=== PATIENT | male | born 1935 | race African-American/Black ===

== ENCOUNTER 2018-12-23 13:56 | Inpatient (IN) | payer OTHER ==
[2018-12-23] VITALS (27 sets, daily range): BP systolic 116–145; BP diastolic 55–81
[~2018-12-23] VITALS: Ht 177.8 cm; Wt 92.1 kg
--- NOTE | ~2018-12-23 | HC ---
[facility] [place] [address] CONSULTATION Name: SIMRANROMMEL Bocanegra Room #: 451-P ADM IN M.R.#: [id number] Admission: 12/23/18 ������������������ Attend Phys: Melonie Chen Discharge: ������������������ Date of : 34 Report #: [id number] THIS REPORT FOR: //name// CC: Joshua Akins DATE OF SERVICE: 12/25/2018 REASON FOR CONSULTATION: CKD. REASON FOR PRESENTATION: Coagulopathy. HISTORY OF PRESENT ILLNESS: An 83-year-old who presented with abdominal pain. He reported to his primary care physician. He is known to have PE and he is maintained on anticoagulation. His INR was reported to be around 15. With his abdominal pain, his primary care obtained a CT that showed stranding around the kidneys. He had what was described as retroperitoneal bleed. I am consulted to manage his chronic kidney disease. Looking back, the patient does have significant kidney disease with a baseline creatinine of around 1.8. He has multiple bilateral renal cysts. Creatinine when the patient presented was 2.4 and it is down to 2.1. The patient carries a diagnosis of hypertension. He is known to have vitiligo and has obstructive sleep apnea, not using CPAP. PAST MEDICAL HISTORY: 1. Hemorrhoidectomy. 2. Diabetes mellitus. 3. PE. 4. Hypothyroid. 5. Hyperlipidemia. 6. Sleep apnea. 7. Vitiligo. MEDICATIONS: 1. Metolazone. 2. Glimepiride. 3. Levothyroxine. 4. Potassium. 5. Gabapentin. 6. Prednisone for unclear reasons. 7. Lisinopril. 8. Metformin. ALLERGIES: IODINATED CONTRAST. SOCIAL HISTORY: Used to be in the [employer]. No drug or alcohol abuse. [facility] [address] [place] [address] CONSULTATION Name: SIMRANROMMEL Room #: 451-P [facility] IN M.R.#: [id number] Admission: 12/23/18 ������������������ Attend Phys: Melonie Chen Discharge: ������������������ Date of : 34 Report #: [id number] FAMILY HISTORY: Significant for diabetes mellitus and hypertension. REVIEW OF SYSTEMS: GENERAL: No fever or chills. CARDIOVASCULAR: No chest pain or palpitation. PULMONARY: No cough or hemoptysis. GASTROINTESTINAL: No nausea or vomiting. GENITOURINARY: As per the history of present illness. SKIN: Vitiligo. PHYSICAL EXAMINATION: GENERAL: Evidence of vitiligo. VITAL SIGNS: Blood pressure 120/63. HEAD AND NECK: No jugular venous distention. CHEST: No crackles. CARDIOVASCULAR: No rubs detected. ABDOMEN: Soft, nontender. LOWER EXTREMITIES: No edema. LABORATORY DATA: Reviewed. Hemoglobin is 8.6, down from 9.8. INR is down to 1.4 from 14.9. UA with +1 protein. Urine protein to creatinine ratio is 0.4. BUN is 24, creatinine is 2.1. ASSESSMENT, IMPRESSION AND PLAN: 1. Acute kidney injury due to prerenal causes. 2. Chronic kidney disease with a baseline creatinine of around 1.8. 3. Retroperitoneal bleed. 4. Bilateral renal cysts. 5. Stable from the renal side. Ascites is being investigated. I will send the appropriate laboratory investigations for his acute kidney injury and chronic kidney disease. We will also evaluate his serum protein electrophoresis given the MGUS history. 6. I agree with holding the Glucophage, lisinopril, metolazone for now. 7. Discontinue potassium supplement. 8. Known nephrotoxins. 9. Septic workup is in progress. 10. Retroperitoneal bleed, his coagulopathy has been corrected and rectified. 11. From the renal perspective, no intervention is needed for his perinephric stranding from the retroperitoneal bleed. ��������������������������������������������� ���������������������������������������� By: ��������������������������������������������� 1 30 Chyna Morocho MD /nt
[~2018-12-23 13:56] MED LIST: ACIPHEX 20 MG T20 MG PO; ALLOPURINOL 30300 M2 PO; AMARYL2 MG PO; AVELOX 400 MG400 MG PO; CARDURA4 MG PO; CIPROFLOXACIN500 M1 PO; COUMADIN 2.5MG2.5 M1 PO; CRESTOR10 MG PO; FISHOIL PO; GLUCOPHAGE500 MG PO; HYDROCODON-ACE1 EAC7 PO; IRON PO; JANTOVEN5 MG PO; METOLAZONE 2.52.5 MG PO; MULTIVITAMINS PO; NORCO 5-325 TA1 EACH PO; PREDNISONE 5 MG5 MG PO; PRILOSEC 20 MG20 MG PO; PROMETHAZINE-C120 ML PO; SYNTHROID125 MCG PO
[2018-12-23 14:39] LABS: URINE BILIRUBIN NEGATIVE (Negative); URINE BLOOD 2+ (Negative); URINE CLARITY CLEAR; URINE COLOR YELLOW; URINE GLUCOSE-RANDOM* NEGATIVE (Negative); URINE KETONES NEGATIVE (Negative); URINE LEUKOCYTES-REFLEX NEGATIVE (Negative); URINE NITRITE-REFLEX NEGATIVE (Negative); URINE PROTEIN (DIPSTICK) 1+ (Negative); URINE SPECIFIC GRAVITY >= 1.030 (1.005-1.035); URINE UROBILINOGEN 0.2 E.U./dl (0.2-1.0)
[2018-12-23 14:43] LABS: HEMATOCRIT 29.1 % (42.0-52.0); HEMOGLOBIN 9.7 gm/dL (14.0-18.0); MCH 27.9 pg (26.0-34.0); MCHC 33.4 g/dL (28.0-37.0); MCV 83.6 fL (80.0-100.0); PLATELET COUNT 301 thou/uL (150-400); RBC 3.48 mil/uL (4.50-6.00); RDW 16.2 % (10.5-14.5); WBC 5.3 thou/uL (4.0-11.0)
[2018-12-23 14:48] LABS: CASTS None Seen /LPF (None Seen); CRYSTALS None Seen /LPF (None Seen); SQUAMOUS 0-3 Few /LPF (0-3)
[2018-12-23 14:49] LABS: BACTERIA-REFLEX 1-9 Few /HPF (None Seen); URINE RBC 0-2 Rare /HPF (0-2); URINE WBC-REFLEX None Seen /HPF (0-5)
[2018-12-23 14:51] LABS: ANION GAP 8 mmol/L (7-16); BUN 31 mg/dL (7-18); CALCIUM 8.8 mg/dL (8.5-10.1); CHLORIDE 107 mmol/L (98-107); CO2 22 mmol/L (21-32); CREATININE 2.5 mg/dL (0.7-1.3); GLUCOSE 70 mg/dL (74-106); POTASSIUM 4.3 mmol/L (3.5-5.1); SODIUM 137 mmol/L (136-145)
[2018-12-23 15:00] LABS: ALBUMIN 2.3 g/dL (3.4-5.0); SGOT 337 U/L (15-37); SGPT 64 U/L (30-65); TOTAL BILIRUBIN 0.2 mg/dL (<0.1-1.0); TOTAL PROTEIN 8.7 g/dL (6.4-8.2); TROPONIN-I <0.06 ng/mL (<0.06)
[2018-12-23 15:02] LABS: ABSOLUTE NEUTROPHILS 2.8 thou/uL (1.4-8.2); PLATELET ESTIMATE NORMAL
[2018-12-23 15:03] LABS: ANISOCYTOSIS 1+; APTT 64.7 Seconds (24.5-32.8); PROTIME 151.9 Seconds (9.3-11.4)
[2018-12-23 15:04] LABS: INR 14.9
[2018-12-23] MEDS ORDERED: SYNTHROID150 MCG PO (15:24)
[2018-12-23] MEDS ORDERED: GLUCOPHAGE XR500 MG PO (15:25)
[2018-12-23] MEDS ORDERED: KLOR-CON 1010 MEQ PO (15:30)
[2018-12-23] MEDS ORDERED: GABAPENTIN 100100 MG PO (15:30)
[2018-12-23] MEDS ORDERED: PREDNISONE 5 MG5 M1 PO (15:31)
[2018-12-23] MEDS ORDERED: LISINOPRIL10 MG PO (15:32)
[2018-12-23] MEDS ORDERED: LINZESS145 MCG PO (15:33)
--- NOTE | 2018-12-23 15:58 | NUR ---
DR COOPER AT BEDSIDE
--- NOTE | 2018-12-23 19:28 | NUR ---
ADMITTED TO ICU AT 1805, ALERT AND ORIENTED AND VITALS STABLE. ADMISSION HISTORY AND ASSESSMENT COMPLETED. FFP TRANSFUSION INITIATED. BLOOD GLUCOSE NOTED TO BE LOW, JUICE AND CRACKERS PROVIDED AND MD NOTIFIED. DIET ORDERS AND HYPOGLYCEMIA PROTOCOL STARTED. BLOOD SUGAR LOW AFTER RE-CHECK, D50 ADMINISTERED AND SANDWICH PROVIDED. DIEABETIC MEDS HELD. WILL CONTINUE TO MONITOR. REPORTED OFF TO AUTO GLASS TECHNICIAN BENJI Castle
[2018-12-24] VITALS (85 sets, daily range): BP systolic 101–146; BP diastolic 38–93
[2018-12-24 05:26] LABS: HEMATOCRIT 26.8 % (42.0-52.0); HEMOGLOBIN 8.6 gm/dL (14.0-18.0); MCHC 32.2 g/dL (28.0-37.0); MCV 83.9 fL (80.0-100.0); RBC 3.2 mil/uL (4.50-6.00); RDW 16.5 % (10.5-14.5); WBC 4.2 thou/uL (4.0-11.0)
[2018-12-24 05:37] LABS: PROTIME 15.1 Seconds (9.3-11.4)
[2018-12-24 05:38] LABS: INR 1.4
[2018-12-24 05:45] LABS: CALCIUM 8.5 mg/dL (8.5-10.1); CREATININE 2.1 mg/dL (0.7-1.3); POTASSIUM 4.2 mmol/L (3.5-5.1)
--- NOTE | 2018-12-24 07:56 | NUR ---
PT AOX4. ON RA. C/O HEADACHE, TYLENOL GIVEN TO PATIENT. C/O BLOATING AND TIGTNESS IN ABD. PT REFUSED TO GET ANY STRONGER FOR PAIN RELIEF. 2 UNIT OF FFP GIVEN TO PATIENT. VSS. AFEBRILE. BLOOD SUGARS LOW, PLACED ON DEXTROS. VOIDS PER URINAL. NO OVERT BLEEDING NOTED. FAMILY WAS IN DURING THE NIGHT WITH PATIENT. CALLS APPROPIATELY. FREE FROM FALLS. NO COMPLAINS PRESENTLY. WILL CONTINUE TO MONITOR
--- NOTE | 2018-12-24 11:28 | EKG ---
[address] [address] ELECTROCARDIOGRAM REPORT Name: ROMMEL KHALIL Room #: 238-P ADM IN M.R.#: [id number] ������������������ Admission: 12/23/18 ������������������ Attend Phys: Melonie Chen Discharge: ������������������ Date of : 34 Report #: [id number] ����������������������������������������������������������������� [id number] THIS REPORT FOR: //name// 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 : 1935 Requested By: Fadia Bhandari Order Number: [id number] MD: Raymond Rodriguez Measurements Intervals [place] Rate: 104 P: 56 [place]: 140 QRS: -46 QRSD: 98 T: 65 QT: 338 QTc: 445 Interpretive Statements Sinus tachycardia Left axis deviation Poor R-wave progression Compared to ECG 03/13/2011 11:00:17 no significant changes Electronically Signed On 12-24-2018 11:28:10 TRANSMISSION SYSTEMS OPERATOR by Raymond Rodriguez [email or web address] ��������������������������������������������� <ELECTRONICALLY SIGNED> ���������������������������������������� By: Raymond Rodriguez MD ��������������������������������������������� 12/24/18 1128 1409 08 Raymond Rodriguez MD /EPI
[2018-12-24 12:11] LABS: HEMATOCRIT 30.4 % (42.0-52.0); HEMOGLOBIN 9.8 gm/dL (14.0-18.0)
--- NOTE | 2018-12-24 16:36 | NUR ---
CM ASSESSMENT: CASE OPENED FOR DC PLANNING. CLINICAL INFO REVIEWED. ADMITTED THRU ER WITH ELEVATED INR AND RETROPERITONEAL BLEED. PT AND SPUOUSE LIVE TOGETHER IN HOUSE. PT INDEPENDENT WITH ADLS, WORKS PT, DRIVES. SHARES IADLS WITH SPOUSE. NO PREVIOUS HH. SUPPORTIVE FAMILY. PCP IS MIKE DAVILA. NO WEEKEND DC PLANNED.
[2018-12-24 16:52] LABS: COLOR YELLOW; SOURCE LEFT PARA; SOURCE LT PARA; TOTAL VOLUME 60 mL
[2018-12-24 16:53] LABS: CLARITY CLOUDY
--- NOTE | 2018-12-24 17:28 | NUR ---
PRECEPTING KAYLA OJEDA RN. AGREE WITH ALL NOTES AND ASSESSMENTS.
[2018-12-24 17:29] LABS: BF NUCLEATED CELLS 7480; BF RBC 3266
--- NOTE | 2018-12-24 17:35 | NUR ---
ASSUMED CARE OF PT AT 0700, MAIN COMPLAINT OF TIGHNESS AND FULLNESS IN ABDOMEN, A&OX4, CALM AND COOPERATIVE THROUGHOUT DAY. NO PAIN STATED THROUGHOUT DAY. TACHYCARDIC FOR MOST OF DAY, PT REMAINS ON ROOM AIR. HYPOACTIVE BOWEL SOUNDS, CT SCAN OF ABDOMEN AND PARACENTESIS PERFORMED, 1.1 L OF FLUID DRAINED, TOLERATED PROCEDURE, PRESSURE DRESSING IN PLACE. BLOOD SUGAR REMAINED WITHIN NORML LIMITS THROUGHOUT DAY. PT. IS IN BED RESTING WITH CALL LIGHT WITHIN REACH, WILL CONTINUE TO MONITOR.
[2018-12-24 20:01] LABS: % SATURATION 26 % (20-39); IRON 44 ug/dL (65-175); TIBC 172 ug/dL (250-450)
[2018-12-24 20:04] LABS: ALBUMIN 2.3 g/dL (3.4-5.0); DIRECT BILIRUBIN 0.1 mg/dL (<0.1-0.3); TOTAL BILIRUBIN 0.3 mg/dL (<0.1-1.0); TOTAL PROTEIN 8.5 g/dL (6.4-8.2)
[2018-12-24 21:26] LABS: PROT/CREAT RATIO 0.4; URINE CREATININE-RANDOM* 105.5 mg/dL; URINE PROTEIN-RANDOM* 47.2 mg/dL (<11.9)
[2018-12-25] VITALS (17 sets, daily range): BP systolic 109–134; BP diastolic 53–74
[2018-12-25 03:05] LABS: HAV IgM AB (ANTI-HAV IgM) Negative (Negative); HEPATITIS B SURFACE AG Negative (Negative); HEPATITIS C VIRUS AB 0.8 (0.0-0.9); IgG 3459 mg/dL (700-1600)
--- NOTE | 2018-12-25 05:43 | NUR ---
Pt remains stable in this shift. Denies of any SOB or chest discomfort. Report less tightness in his ABD this am. Dressing on Lt side of ABD remains D/C/I. Making good UO. VSS. Awaiting for Lab result this am.
[2018-12-25 06:23] LABS: HEMATOCRIT 26.8 % (42.0-52.0); HEMOGLOBIN 8.6 gm/dL (14.0-18.0); MCHC 32.3 g/dL (28.0-37.0); MCV 83.7 fL (80.0-100.0); RBC 3.2 mil/uL (4.50-6.00); RDW 16.3 % (10.5-14.5); WBC 4.6 thou/uL (4.0-11.0)
[2018-12-25 06:29] LABS: CALCIUM 8.1 mg/dL (8.5-10.1); CREATININE 2.1 mg/dL (0.7-1.3); MAGNESIUM 1.8 mg/dL (1.8-2.4); POTASSIUM 4.3 mmol/L (3.5-5.1)
[2018-12-25 11:12] LABS: DIRECT BILIRUBIN < 0.1 mg/dL (<0.1-0.3); SGOT 218 U/L (15-37); SGPT 28 U/L (30-65); TOTAL BILIRUBIN 0.3 mg/dL (<0.1-1.0); TOTAL PROTEIN 7.7 g/dL (6.4-8.2)
--- NOTE | 2018-12-25 17:36 | NUR ---
ASSUMED CARE OF PT AT 0700. PT DENIES N/V AND PAIN IN ABDOMEN. ABDOMEN STILL ROUND, FIRM, AND DISTENDED. PT. WALKED WITH STAND BY ASSIST TO DOOR AND BACK AND TOLERATED WELL. LABS FROM PARACENTESIS STILL PENDING. OK TO TRANSFER OUT OF ICU. REPORT GIVEN TO MADI PATHAK. PT. RING AND WATCH GIVEN TO AND SENT HOME. PT. WILL TRANSFER TO ROOM 451.
--- NOTE | 2018-12-25 18:42 | NUR ---
PT. TRANSFERRED TO [facility] AT 1830. ALL PATIENT BELONGINGS TRANSFERRED WITH PT.
[2018-12-26 03:35] VITALS: BP 122/60
--- NOTE | 2018-12-26 03:57 | NUR ---
Pt. rested quietly during the night when checked on during frequent rounds. His iv infiltrated in left upper arm. Area is swollen and reddish in color. Pt. does not want an iv restarted. Will attempt again later this morning as pt. has no iv meds at this time. No c/o shortness of air.
[2018-12-26 04:53] LABS: HEMATOCRIT 27.7 % (42.0-52.0); HEMOGLOBIN 9.3 gm/dL (14.0-18.0); MCHC 33.4 g/dL (28.0-37.0); MCV 83.8 fL (80.0-100.0); RBC 3.31 mil/uL (4.50-6.00); RDW 16.2 % (10.5-14.5); WBC 5.9 thou/uL (4.0-11.0)
[2018-12-26 05:12] LABS: CALCIUM 8.4 mg/dL (8.5-10.1); CREATININE 2.1 mg/dL (0.7-1.3); PHOSPHORUS 2.9 mg/dL (2.5-4.9); POTASSIUM 4.3 mmol/L (3.5-5.1)
[2018-12-26 07:25] VITALS: BP 136/66
[2018-12-26 09:08] LABS: BODY FLUID ALBUMIN 2.3 g/dL (()); BODY FLUID AMYLASE 346 U/L (()); BODY FLUID GLUCOSE 25 mg/dL (()); BODY FLUID LDH 15944 IU/L (()); BODY FLUID PROTEIN 5.9 g/dL (())
--- NOTE | 2018-12-26 10:09 | NUR ---
OK FOR PT TO GO WITHOUT IV ACCESS UNTIL LEFT ARM IMPROVES FROM INFILTRATION PER DR. DE SANTIAGO.
[2018-12-26 11:05] LABS: IgA 98 mg/dL (61-437); IgG 3420 mg/dL (700-1600); IgM 74 mg/dL (15-143)
[2018-12-26 12:07] LABS: CERULOPLASMIN 24.7 mg/dL (16.0-31.0)
[2018-12-26 14:30] VITALS: BP 144/79
--- NOTE | 2018-12-26 17:31 | NUR ---
PT STABLE THROUGHOUT SHIFT. OVERNIGHT PT'S IV INFILTRATED, LEFT ARM RED AND SWOLLEN. PT REFUSED TO ALLOW IV IN RIGHT ARM. WRAPPED AND ELEVATED LEFT ARM AND PT HAD NO COMPLAINTS OF PAIN. PT RESTING COMFORTABLY.
[2018-12-26 19:13] VITALS: BP 127/66
--- NOTE | 2018-12-27 02:53 | NUR ---
Assumed care at 1845. Pt resting in bed on frequent rounds. Denies pain. Still with no IV access. No identified needs at the moment. Call light within reach. Will continue to monitor.
[2018-12-27 03:02] VITALS: BP 120/63
[2018-12-27 04:09] LABS: CREATININE 2.4 mg/dL (0.7-1.3); PHOSPHORUS 3.7 mg/dL (2.5-4.9); POTASSIUM 4.7 mmol/L (3.5-5.1)
[2018-12-27 04:25] LABS: HEMATOCRIT 26.9 % (42.0-52.0); MCH 28.3 pg (26.0-34.0); MCHC 33.6 g/dL (28.0-37.0); MCV 84.2 fL (80.0-100.0); RBC 3.19 mil/uL (4.50-6.00); RDW 16.2 % (10.5-14.5); WBC 5.3 thou/uL (4.0-11.0)
[2018-12-27 07:12] VITALS: BP 137/59
[2018-12-27 10:07] LABS: KAPPA FREE LIGHT CHAINS 1145.1 mg/L (3.3-19.4); KAPPA/LAMBDA RATIO 14.07 (0.26-1.65); LAMBDA FREE LIGHT CHAINS 81.4 mg/L (5.7-26.3)
--- NOTE | 2018-12-27 14:27 | 2DMMODE ---
[facility] [address] [place] [address] 2 D/M-MODE ECHOCARDIOGRAM Name: KHALILROMMEL Room #: 451-P [facility] IN [facility]#: [id number] ������������� Admission: 12/23/18 ������������� Attend Phys: Joshua Cameron Discharge: ��� ������������� ��� Date of : 34 Date of Service: 12/27/18 0828 �� Report #: [id number] �������� ��������������������������������������������[id number] THIS REPORT FOR: //name// APPROVED REPORT Study performed: 12/25/2018 11:12:28 EXAM: Comprehensive 2D, Doppler, and color-flow Echocardiogram Patient Location: ICU Room #: 238 Status: routine BSA: 2.09 HR: 98 bpm Rhythm: NSR Other Information Study Quality: Adequate Indications Atrial Fibrillation Hypertension/HDD 2D Dimensions RVDd: 31.17 mm IVSd: 10.52 (7-11mm) LVOT Diam: 19.83 (18-24mm) LVDd: 41.16 mm PWd: 10.17 (7-11mm) Ascending Ao: 32.38 (22-36mm) LVDs: 21.59 (25-40mm) Left Atrium: 39.11 (27-40mm) Aortic Root: 28.30 mm LV Single Plane 4CH: 62.55 % Volumes Left Atrial Volume (Systole) Single Plane 4CH: 22.58 mL Single Plane 2CH: 29.73 mL Aortic Valve AoV Peak Manny.: 2.15 m/s AO Peak Gr.: 18.52 mmHg LVOT Max P.37 mmHg LVOT Max V: 1.36 m/s DEANDRA Vmax: 1.95 cm2 Mitral Valve E/A Ratio: 0.8 [facility] [address] [place] [address] 2 D/M-MODE ECHOCARDIOGRAM Name: SIMRANROMMEL Bocanegra Room #: 451-P [facility] IN [facility]#: [id number] ������������� Admission: 12/23/18 ������������� Attend Phys: Joshua Cameron Discharge: ��� ������������� ��� Date of : 34 Date of Service: 12/27/18 0828 �� Report #: [id number] �������� ��������������������������������������������[id number] MV Decel. Time: 218.24 ms MV E Max Manny.: 1.05 m/s MV A Manny.: 1.26 m/s MV PHT: 63.29 ms IVRT: 59.98 ms Pulmonary Valve PV Peak Manny.: 1.25 m/s PV Peak Gr.: 6.30 mmHg Pulmonary Vein P Vein S: 0.53 m/s P Vein A: 0.40 m/s P Vein D: 0.31 m/s P Vein A Dur.: 148.8 msec P Vein S/D Ratio: 1.71 Tricuspid Valve TR Peak Manny.: 2.81 m/s TR Peak Gr.: 31.57 mmHg Left Ventricle The left ventricle is normal size. There is normal LV segmental wall motion. There is normal left ventricular wall thickness. The left ventricular systolic function is normal. The left ventricular ejection fraction is within the normal range. LVEF is 60-65%. Mild diastolic dysfunction is present (impaired relaxation pattern). Right Ventricle The right ventricle is normal size. There is normal right ventricular wall thickness. The right ventricular systolic function is normal. Atria The left atrium size is normal. The right atrium size is normal. Aortic Valve The aortic valve is normal in structure. No aortic regurgitation is present. There is no aortic valvular stenosis. Mitral Valve The mitral valve is normal in structure. Mild mitral regurgitation. Tricuspid Valve The tricuspid valve is normal in structure. Trace to mild tricuspid regurgitation. Estimated PAP is 35mmHg. [facility] [address] [place] [address] 2 D/M-MODE ECHOCARDIOGRAM Name: SUSAN KHALILRAMAKRISHNA Bocanegra Room #: 451-P [facility] IN [facility].#: [id number] ������������� Admission: 12/23/18 ������������� Attend Phys: Joshua Cameron Discharge: ��� ������������� ��� Date of : 33 Date of Service: 12/27/18 0828 �� Report #: [id number] �������� ��������������������������������������������[id number] Pulmonic Valve Pulmonic valve is grossly normal in structure. Trace to mild pulmonic regurgitation. Great Vessels The aortic root is normal in size. The ascending aorta is normal in size. IVC is normal in size and collapses >50% with inspiration. Pericardium There is no pericardial effusion. <Conclusion> The left ventricular systolic function is normal. There is normal LV segmental wall motion. LVEF is 60-65%. Mild diastolic dysfunction The aortic valve is normal in structure. No aortic regurgitation or stenosis The mitral valve is normal in structure. Mild mitral regurgitation. Trace to mild tricuspid regurgitation. Estimated pulmonary artery pressure of 35mmHg. There is no pericardial effusion. ��������������������������������������������� <ELECTRONICALLY SIGNED> ���������������������������������������� By: Alireza Williamson MD, FACC ��������������������������������������������� 12/27/18827 7 7 Alireza Williamson MD, FACC /INF
[2018-12-27 14:56] VITALS: BP 146/50
[2018-12-27 15:07] LABS: ANA INTERPRETATION Negative (Negative)
[2018-12-27] MEDS ORDERED: CIPRO500 MG PO (15:41)
--- NOTE | 2018-12-27 16:37 | NUR ---
CARE TEAM INDICATED THAT PT IS MEDICALLY STABLE TO DISCHARGE HOME THIS DAY WITH NO NEEDS. NO OTHER CM INTERVENTION INDICATED AT THIS TIME. CASE CLOSED.
[2018-12-27 16:50] VITALS: BP 146/50
== END 2018-12-27 19:00 | disposition home or self-care (01) | DRG 963 ==
LOC: ER 13:56 → 4W 15:31 → ICU 15:31 → EROBS 15:31 → ICU 17:52 → 4W 12-25 18:45
PROVIDERS: Hospitalist; Internal Medicine; Nurse Practitioner; Nurse Practitioner Family; Student in an Organized Health Care Education/Training Program; ADMIT Family Medicine
PROC: 30233K1 Transfusion of Nonautologous Frozen Plasma into Peripheral Vein, Percutaneous Approach (ICD-10-PCS; principal; 2018-12-23)
PROC: 0W9G3ZZ Drainage of Peritoneal Cavity, Percutaneous Approach (ICD-10-PCS; 2018-12-24)
DX: S37.012A Minor contusion of left kidney, initial encounter (principal); K65.2 Spontaneous bacterial peritonitis; S36.898A Other injury of other intra-abdominal organs, initial encounter; D68.9 Coagulation defect, unspecified; N17.9 Acute kidney failure, unspecified; R18.8 Other ascites; S37.011A Minor contusion of right kidney, initial encounter; N18.9 Chronic kidney disease, unspecified; E11.22 Type 2 diabetes mellitus with diabetic chronic kidney disease; E03.9 Hypothyroidism, unspecified; I48.0 Paroxysmal atrial fibrillation; K21.9 Gastro-esophageal reflux disease without esophagitis; E78.00 Pure hypercholesterolemia, unspecified; N28.1 Cyst of kidney, acquired; D47.2 Monoclonal gammopathy; K80.20 Calculus of gallbladder without cholecystitis without obstruction; D64.9 Anemia, unspecified; I12.9 Hypertensive chronic kidney disease with stage 1 through stage 4 chronic kidney disease, or unspecified chronic kidney disease; M19.90 Unspecified osteoarthritis, unspecified site; N40.0 Benign prostatic hyperplasia without lower urinary tract symptoms; M10.9 Gout, unspecified; E66.9 Obesity, unspecified; V89.2XXA Person injured in unspecified motor-vehicle accident, traffic, initial encounter; Y93.89 Activity, other specified; Y92.89 Other specified places as the place of occurrence of the external cause; Y99.8 Other external cause status; Z68.29 Body mass index [BMI] 29.0-29.9, adult; Z86.711 Personal history of pulmonary embolism; Z87.828 Personal history of other (healed) physical injury and trauma; Z87.81 Personal history of (healed) traumatic fracture; Z79.01 Long term (current) use of anticoagulants; Z79.84 Long term (current) use of oral hypoglycemic drugs; Z79.899 Other long term (current) drug therapy; Z91.041 Radiographic dye allergy status; Z91.012 Allergy to eggs; Z83.3 Family history of diabetes mellitus; Z82.49 Family history of ischemic heart disease and other diseases of the circulatory system
CPT/HCPCS: 10045; 10078

== ENCOUNTER 2019-02-06 06:51 | Inpatient (IN) | payer OTHER ==
[~2019-02-06] VITALS: Ht 177.8 cm; Wt 98.7 kg
--- NOTE | ~2019-02-06 | HC ---
[facility] [address] [place] [address] CONSULTATION Name: ROMMEL KHALIL Room #: 204-P [facility] IN ..#: [id number] Admission: 02/06/19 ������������������ Attend Phys: Ray Calderón MD Discharge: ������������������ Date of : 34 Report #: [id number] THIS REPORT FOR: //name// CC: Ray Akins DATE OF SERVICE: 02/11/2019 HISTORY OF PRESENT ILLNESS: This is an 83-year-old black male was admitted with findings of renal failure, which have improved with dialysis. He has had a longstanding MGUS dating to 2010 when he had a bone marrow performed at [facility] and seen in consultation by Dr. Evelio Gong. He most recently was seen by Macrina Almanza at [facility] with a repeat bone marrow performed for suspected multiple myeloma. This evidently was nondiagnostic. A recent tap of ascitic fluid showed plasma cells. PAST MEDICAL HISTORY: Positive for diabetes. He had a PE to his left lung in 2003. He has had prior vitiligo, high cholesterol, gout, sleep apnea, medically managed hypertension and hypothyroidism. He has had prior hemorrhoidectomy. MEDICATIONS: As listed on the MFR. ALLERGIES: IODINATED CONTRAST MATERIAL. REVIEW OF SYSTEMS: Negative for any sweats, chills, fever. He has detected new palpable masses. He has had poor p.o., weight loss and difficulty in eating/swallowing. Remaining review of systems is in the history of present illness. PHYSICAL EXAMINATION: GENERAL: Shows him to be awakened and alert, but is a poor historian. HEENT: Shows mouth to be clear. NECK: Supple. CHEST: Clear. CARDIOVASCULAR: Normal S1, S2. ABDOMEN: Soft with no palpable spleen. EXTREMITIES: No clubbing, cyanosis, edema. SKIN: Shows widespread vitiligo. NEUROLOGIC: No focal localizing signs. PSYCHIATRIC: Not agitated or confused. ASSESSMENT: Plasma cell dyscrasia. PLAN: I have been able to obtain further records from Dr. Akins and discussed with his as well as Dr. Chadwick. The recent bone marrow being negative [facility] [address] [place] [address] CONSULTATION Name: KHALILROMMEL Room #: 204-P [facility] IN M.R.#: [id number] Admission: 02/06/19 ������������������ Attend Phys: Ray Calderón MD Discharge: ������������������ Date of : 34 Report #: [id number] may represent a sample error and/or discussed that masses seen on CAT scan may represent extramedullary plasmacytomas versus lymphoma. 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 If a tissue diagnosis is not obtained, we have discussed obtaining a PET scan with a directed needle biopsy. The is in agreement with these plans and we will follow accordingly. Thanks for asking us to be involved in his care. Full and further recommendations will be forthcoming. ��������������������������������������������� ���������������������������������������� By: ��������������������������������������������� 1445 0946 MD isabel Asif
--- NOTE | ~2019-02-06 | HC ---
[facility] [place] [address] CONSULTATION Name: ROMMEL KHALIL Sahra Room #: 204-P ADM IN ..#: [id number] Admission: 02/06/19 ������������������ Attend Phys: Ray Calderón MD Discharge: ������������������ Date of : 34 Report #: [id number] THIS REPORT FOR: //name// CC: Ray Akins Nephrology Consultation REASON FOR CONSULTATION: Acute kidney injury. HISTORY OF PRESENT ILLNESS: This is a very well-known patient to me. He is an 83-year-old who I evaluated back in November of this year for a retroperitoneal bleed. He is known to have chronic kidney disease with a baseline creatinine of around 2.0. He presented at that time with an INR of about 15. He had some abdominal pain was investigated. CT was consistent with retroperitoneal bleed. He carries diagnoses of hypertension and vitiligo. He is also known to have diabetes mellitus with sleep apnea. I have initiated the workup for the patient at that time. 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 He has carried a diagnosis of MGUS for some years. He is followed up with Dr. Akins. He is known to have a mediastinal mass for some years, since 2003 and this has been investigated. The patient's creatinine stabilized and he was discharged home. I then communicated with his primary care physician and he had a bone marrow biopsy that did not show any evidence of lymphoproliferative disorders or paraproteinemia or plasma cell dyscrasia. However, unfortunately no amyloid staining was done. The patient has ascitic fluid at that time and pathological findings were consistent with plasma cells present in his ascitic fluid. He showed up in my clinic a few weeks ago and we offered him an admission, as his condition continued to deteriorate; however, he refused. I have recommended for him to have an MRI of his neck, chest, abdomen and pelvis given a recent CT that showed some lymphadenopathy with the above-mentioned mediastinal mass. The patient's condition continued to deteriorate. He quit making urine in the last few days. He has presented for further evaluation and management. I am being consulted to manage his acute kidney injury. He does have significant proteinuria. He reported left flank pain. No reported hematuria. PAST MEDICAL HISTORY: Extensive and includes the followin. Hypertension. 2. PE. 3. Vitiligo. 4. Hyperthyroidism. 5. Chronic kidney disease. 6. Anemia. 7. Gout. 8. Monoclonal gammopathy. 9. Plasma cell in the ascitic fluid. 10. [place] [address] CONSULTATION Name: ROMMEL KHALIL Room #: 204-P [facility] IN [facility]#: [id number] Admission: 02/06/19 ������������������ Attend Phys: Ray Calderón MD Discharge: ������������������ Date of : 34 Report #: [id number] 11. Retroperitoneal bleed. MEDICATIONS: 1. Crestor. 2. Levothyroxine. 3. Gabapentin. 4. Prednisone. 5. Amoxicillin. ALLERGIES: IODINE and EGG. SOCIAL HISTORY: No drug or alcohol abuse. Lives with his . REVIEW OF SYSTEMS: GENERAL: Significant for weakness, decreased oral intake with weight loss. CARDIOVASCULAR: No chest pain or palpitation. PULMONARY: No cough or hemoptysis. GASTROINTESTINAL: As per the history of present illness with abdominal distention, left flank pain, nausea, vomiting, decreased oral intake. GENITOURINARY: Decreased urine output. MUSCULOSKELETAL: Left-sided back pain. SKIN: Vitiligo. PHYSICAL EXAMINATION: GENERAL: He is alert, oriented, and tachycardic. VITAL SIGNS: Blood pressure is 148/78, pulse rate is 117, and temperature is 36.6. HEAD AND NECK: Neck mass is present bilaterally. CARDIOVASCULAR: No rub detected. Tachycardic. ABDOMEN: Distended with left flank tenderness. Enlarged liver. LOWER EXTREMITIES: No edema. SKIN: Diffuse vitiligo rash. LABORATORY VALUES: Reviewed. Sodium is 136, potassium is 5.8, BUN is 64, creatinine is 8.6. AST is 89. Albumin is 2.2. ASSESSMENT, IMPRESSION: 1. Acute kidney injury. 2. Chronic kidney disease. 3. Monoclonal gammopathy of undetermined significance. 4. Plasma cell present in the ascitic fluid. 5. Neck swelling. 6. Mediastinal mass. 7. Diffuse chest and abdomen lymphadenopathy. 8. Hyperkalemia. [address] [address] CONSULTATION Name: ROMMEL KHALIL Sahra Room #: 204-P [facility] IN ..#: [id number] Admission: 02/06/19 ������������������ Attend Phys: Ray Calderón MD Discharge: ������������������ Date of : 34 Report #: [id number] PLAN: 1. 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 He now has significant worsening of his renal function. I am extremely worried about his mediastinal mass and lymphadenopathy that was present on an outpatient CT. This was discussed with his primary care physician and the patient was supposed to have an MRI, neck, chest, abdomen and pelvis; however, this was not done. At this point, there is a very significant deterioration of the patient's kidney function. Differential diagnosis includes prerenal, progression of his disease, which is very likely to be amyloidosis. We will admit the patient to the hospital, hydration will be initiated. 2. Treat his hyperkalemia. 3. Obtain an ultrasound of his abdomen. 4. We will likely proceed with a kidney biopsy in the next 24 hours. 5. We would definitely consider an MRI of his chest, abdomen and pelvis given the lymphadenopathy and the mediastinal mass that was present on a CT chest that was done as an outpatient. ��������������������������������������������� ���������������������������������������� By: ��������������������������������������������� [id number] Chyna Morocho MD /morena
[~2019-02-06 06:51] MED LIST changes: +CIPRO500 MG PO; +GABAPENTIN 100100 MG PO; +GLUCOPHAGE XR500 MG PO; +KLOR-CON 1010 MEQ PO; +LINZESS145 MCG PO; +LISINOPRIL10 MG PO; +SYNTHROID150 MCG PO
[2019-02-06 06:58] VITALS: BP 160/82
[2019-02-06 07:46] LABS: ABSOLUTE NEUTROPHILS 4.5 thou/uL (1.4-8.2); EOSINOPHILS 1.8 % (0.0-3.0); HEMATOCRIT 26.5 % (42.0-52.0); HEMOGLOBIN 8.7 gm/dL (14.0-18.0); LYMPHOCYTES 22.7 % (24.0-44.0); MCH 27.5 pg (26.0-34.0); MCHC 32.7 g/dL (28.0-37.0); MCV 84.2 fL (80.0-100.0); MONOCYTES 11.4 % (1.0-8.0); PLATELET COUNT 296 thou/uL (150-400); POLYS 62.1 % (36.0-66.0); RBC 3.15 mil/uL (4.50-6.00); RDW 17.5 % (10.5-14.5); WBC 7.3 thou/uL (4.0-11.0)
[2019-02-06] MEDS ORDERED: AMOXICILLIN 50500 MG PO (07:47)
[2019-02-06] MEDS ORDERED: NEXIUM40 MG PO (07:47)
[2019-02-06] MEDS ORDERED: ULORIC40 MG PO (07:48)
[2019-02-06] MEDS ORDERED: PREDNISONE 5 MG5 M1 PO (07:54)
[2019-02-06 07:57] LABS: ANION GAP 15 mmol/L (7-16); BUN 64 mg/dL (7-18); CALCIUM 9.1 mg/dL (8.5-10.1); CHLORIDE 105 mmol/L (98-107); CO2 16 mmol/L (21-32); CREATININE 8.6 mg/dL (0.7-1.3); GLUCOSE 93 mg/dL (74-106); POTASSIUM 5.8 mmol/L (3.5-5.1); SODIUM 136 mmol/L (136-145)
[2019-02-06 08:07] LABS: ALBUMIN 2.2 g/dL (3.4-5.0); DIRECT BILIRUBIN 0.1 mg/dL (<0.1-0.3); SGOT 89 U/L (15-37); SGPT 24 U/L (30-65); TOTAL BILIRUBIN 0.3 mg/dL (<0.1-1.0); TOTAL PROTEIN 9.8 g/dL (6.4-8.2); TROPONIN-I <0.06 ng/mL (<0.06)
[2019-02-06 08:57] LABS: URINE BILIRUBIN NEGATIVE (Negative); URINE BLOOD 3+ (Negative); URINE CLARITY CLOUDY; URINE COLOR YELLOW; URINE GLUCOSE-RANDOM* NEGATIVE (Negative); URINE KETONES NEGATIVE (Negative); URINE LEUKOCYTES-REFLEX 2+ (Negative); URINE NITRITE-REFLEX NEGATIVE (Negative); URINE PROTEIN (DIPSTICK) 3+ (Negative); URINE UROBILINOGEN 0.2 E.U./dl (0.2-1.0)
[2019-02-06 09:08] LABS: AMORPHOUS URATES Few /LPF (None Seen); BACTERIA-REFLEX 1-9 Few /HPF (None Seen); CASTS None Seen /LPF (None Seen); MUCUS 0-3 Light strn/LPF (None Seen); URINE RBC 3-10 Few /HPF (0-2); URINE WBC-REFLEX 0-5 Rare /HPF (0-5)
[2019-02-06 09:09] LABS: URIC ACID CRYSTALS >10 Many /LPF (None Seen)
[2019-02-06 09:10] LABS: SQUAMOUS 0-3 Few /LPF (0-3)
[2019-02-06 09:29] VITALS: BP 148/78
--- NOTE | 2019-02-06 09:40 | NUR ---
[facility]NA[facility] FAXED AND ATEMPTED TO CALL REPORT TO CCU. CCU STATES THEY WILL CALL BACK IN 10 MIN
[2019-02-06 10:06] VITALS: BP 113/65
[2019-02-06 11:00] VITALS: BP 115/68
[2019-02-06 11:02] LABS: URIC ACID* 15.4 mg/dL (2.6-7.2)
[2019-02-06 15:55] VITALS: BP 126/78
--- NOTE | 2019-02-06 16:50 | NUR ---
PT CARE ASSUMED APPROX 1100. ADMITTED FROM ED FOR DENZEL. PT DROWSY BUT EASILY AROUSABLE. ORIENTED X4. DENIED PAIN UPON ARRIVAL BUT SOON AFTER C/O LEFT FLANK PAIN. PAIN MANAGED WITH MORPHINE. DENIES SOA. AT BEDSIDE. IVF STARTED. GARCES PATENT BUT NO OUTPUT. WILL NOTIFY RENAL DR TIMELY. VSS. PT AND BOTH DENY QUESTIONS OR CONCERNS REGARDING POC. LUNGS SOUNDS ARE CLEAR DESPITE NO OUTPUT. NO DISTRESS NOTED.
[2019-02-06 19:06] VITALS: BP 138/73
--- NOTE | 2019-02-06 23:52 | EKG ---
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: merissa : 1935 Requested By: Stephan Baugh Order Number: [id number] MD: Raymond Rodriguez Measurements Intervals [place] Rate: 104 P: 59 [place]: 131 QRS: -47 QRSD: 98 T: 103 QT: 340 QTc: 448 Interpretive Statements Sinus tachycardia Left anterior fascicular block poor r wave progression Nonspecific ST/T abnormalities Compared to ECG 12/23/2018 14:09:37 no significant changes Electronically Signed On 02-06-2019 23:52:31 CDT by Raymond Rodriguez [email or web address] ��������������������������������������������� <ELECTRONICALLY SIGNED> ���������������������������������������� By: Raymond Rodriguez MD ��������������������������������������������� 02/06/19 2352 0748 Raymond Rodriguez MD /EPI
[2019-02-07] VITALS: BP 130/74
[2019-02-07 03:12] LABS: HEMOGLOBIN 8.5 gm/dL (14.0-18.0); MCH 27.5 pg (26.0-34.0); MCHC 32.7 g/dL (28.0-37.0); MCV 84.3 fL (80.0-100.0); RBC 3.09 mil/uL (4.50-6.00); RDW 17.7 % (10.5-14.5); WBC 6.4 thou/uL (4.0-11.0)
[2019-02-07 03:29] LABS: CALCIUM 8.5 mg/dL (8.5-10.1); CREATININE 9.2 mg/dL (0.7-1.3); PHOSPHORUS 4.6 mg/dL (2.5-4.9)
[2019-02-07 03:33] LABS: POTASSIUM 6.6 mmol/L (3.5-5.1)
[2019-02-07 04:35] VITALS: BP 140/83
[2019-02-07 07:15] VITALS: BP 121/59
--- NOTE | 2019-02-07 07:56 | NUR ---
ASSUMED PT CARE AT 1900 WITH NO SIGN OF DISTRESS NOTED IN PT. PT IS STABLE WITH FAMILY AT BEDSIDE. SCHEDULED MEDS ADMINISTERED TO PT. PT TOLERATED MED. CRITICAL LAB VALUES REPORTED TO PHYSICIAN. VITAL SIGNS STABLE. ASSESSMENT DOCUMENTED. DENIES ANY FURTHER NEEDS AT THIS TIME.
[2019-02-07 11:20] VITALS: BP 139/70
[2019-02-07 15:15] VITALS: BP 121/77
--- NOTE | 2019-02-07 18:41 | NUR ---
PT ORIENTED BUT DROWSY. ABLE TO ANSWER QUESTIONS APPRORIATELY BUT DELAYED/SLOW RESPONSES. RIGHT JUGULAR TEMP DIALYSIS CATH PLACED TODAY IN IR. HEMODYALSIS AFTER PLACEMENT. NO FLUIDS TAKEN OFF. PLAN FOR DIALYSIS AGAIN TOMORROW (02/08) AM. IV FLUIDS INFUSING AT 100 ML/HR. ORDERS PER DR. PALOMINO TO D/C MILI. REMAINS ANURIC AT THIS TIME. FAMILY AT BEDSIDE THROUGH OUT THE DAY.
[2019-02-07 19:28] VITALS: BP 146/77
[2019-02-08] VITALS (7 sets, daily range): BP systolic 117–192; BP diastolic 81–103
[2019-02-08 01:05] LABS: HEP B SURFACE Ab(ANTI-HBS Reactive (()); HEPATITIS B SURFACE AG Negative (Negative)
[2019-02-08 03:41] LABS: ALBUMIN 1.9 g/dL (3.4-5.0); CALCIUM 7.7 mg/dL (8.5-10.1); PHOSPHORUS 3.2 mg/dL (2.5-4.9)
[2019-02-08 04:11] LABS: HEMATOCRIT 24.3 % (42.0-52.0); HEMOGLOBIN 8.1 gm/dL (14.0-18.0); MCH 27.7 pg (26.0-34.0); MCHC 33.2 g/dL (28.0-37.0); MCV 83.4 fL (80.0-100.0); RBC 2.92 mil/uL (4.50-6.00); RDW 17.2 % (10.5-14.5); WBC 6.9 thou/uL (4.0-11.0)
--- NOTE | 2019-02-08 05:37 | NUR ---
ASSUMED PT CARE AT 1900 WITH BEDSIDE REPORT COMPLETED. NO FAMILY AT BEDSIDE. PT IS ALERT. NO SIGN OF DISTRESS NOTED. PT IS STABLE. VITAL SIGN STABLE. PT IS TACHYCARDIC ON THE MONITOR. ASSESSMENT DONE AND CHARTED. SCHEDULED MEDS ADMINISTERED TO PT. NO SIGN OF DISTRESS NOTED. DENIES ANY FURTHER NEEDS AT THIS TIME.
[2019-02-08 11:49] LABS: INR 1.3; PROTIME 13.3 Seconds (9.3-11.4)
--- NOTE | 2019-02-08 13:07 | NUR ---
Patient admits with CRF acute hyperkalemia. He has dialysis this admission unclear if need for community dialysis. Met with patient and at bedside. 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 Patient has 7 steps to bedroom. 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 He has become weak recently reports. Discussed post acute care. Gave list of [facility] contracted facilities to review. [facility] following
--- NOTE | 2019-02-08 19:26 | NUR ---
PATIENT RESTING IN BED, STATES NO NEEDS, NPO AFTER MIDNIGHT FOR RENAL BIOPSY IN THE MORNING.
[2019-02-09] VITALS (10 sets, daily range): BP systolic 142–185; BP diastolic 66–97
[2019-02-09 03:49] LABS: APTT 30.3 Seconds (24.5-32.8); INR 1.3; PROTIME 13.6 Seconds (9.3-11.4)
[2019-02-09 03:50] LABS: ALBUMIN 1.9 g/dL (3.4-5.0); CALCIUM 7.6 mg/dL (8.5-10.1); CREATININE 3.7 mg/dL (0.7-1.3); PHOSPHORUS 2.6 mg/dL (2.5-4.9); POTASSIUM 3.3 mmol/L (3.5-5.1)
[2019-02-09 04:08] LABS: HEMATOCRIT 24.8 % (42.0-52.0); HEMOGLOBIN 8.2 gm/dL (14.0-18.0); MCH 27.7 pg (26.0-34.0); MCHC 33.2 g/dL (28.0-37.0); MCV 83.4 fL (80.0-100.0); RBC 2.97 mil/uL (4.50-6.00); RDW 17.1 % (10.5-14.5); WBC 7.3 thou/uL (4.0-11.0)
--- NOTE | 2019-02-09 05:33 | NUR ---
ASSUMED PT CARE AT 1900 WITH NO SIGN OF DISTRESS NOTED AT THIS TIME. FAMILY AT BEDSIDE AT THE START OF SHIFT. PT IS STABLE, SCHEDULED MEDS ADMINISTERED TO PT. VITAL SIGNS STABLE. PT IS NPO AFTER MN FOR A SCHEDULED RENAL BIOPSY. NO PT IS STABLE . PT CONTINUES TO HAVE DIARRHEA. PT IS STABLE ON RROM AIR. DENIES ANY NEEDS AT THIS TIME.
[2019-02-09 12:47] LABS: PROT/CREAT RATIO 0.9; URINE CREATININE-RANDOM* 77.3 mg/dL; URINE PROTEIN-RANDOM* 69.8 mg/dL (<11.9)
[2019-02-09 15:58] LABS: HEMATOCRIT 24.9 % (42.0-52.0); HEMOGLOBIN 8.2 gm/dL (14.0-18.0)
--- NOTE | 2019-02-09 17:30 | NUR ---
PATIENT IS ALERT, SLOW TO ANSWER. PATIENT HAD RENAL BIOPSY. INCREASED BLOOD PRESSURE AND PHYSICIAN NOTIFIED, HYDRALAZINE ORDERED. COMPLAINT OF LEG PAIN IN LOWER EXTREMITIES, ALSO SWELLING ON LEFT FOOT. DR. CHANCE NOTIFIED, NO ORDERS GIVEN.
[2019-02-10 04:18] LABS: CALCIUM 8.2 mg/dL (8.5-10.1); CREATININE 3.8 mg/dL (0.7-1.3); PHOSPHORUS 3.1 mg/dL (2.5-4.9); POTASSIUM 3.3 mmol/L (3.5-5.1); URIC ACID* 5.7 mg/dL (2.6-7.2)
[2019-02-10 04:29] LABS: MCH 27.8 pg (26.0-34.0); MCHC 33.4 g/dL (28.0-37.0); MCV 83.2 fL (80.0-100.0); RBC 2.89 mil/uL (4.50-6.00); RDW 17.3 % (10.5-14.5); WBC 6.7 thou/uL (4.0-11.0)
--- NOTE | 2019-02-10 04:42 | NUR ---
PATIENTS CARES WERE ASSUMED AT SHIFT CHANGE. PATIENT WAS ASSESSED AND MEDS WERE PASSED. PATIENT CONTINUES TO BECOME VERY COMFUSED AT NIGHT. THIS IS THE SECOND NIGHT HE PULLED OUT HIS IV. THIS NURSE KEEP THE IV OUT AND WILL RESSTART IN THE MORNING WHEN PATIENTS THOUGHTS ARE CLEARER. HOURLY ROUNDING WAS DONE. PATIENT APPERED TO SLEEP WELL AFTER HE PULLED OUT IV. THE BED IS IN A LOW AND LOCKED POSITION. THE BED ALARM IS SET ON THE MIDDLE SETTING.
[2019-02-10 04:46] VITALS: BP 146/82
[2019-02-10 07:43] VITALS: BP 154/80
[2019-02-10 12:23] VITALS: BP 150/79
--- NOTE | 2019-02-10 14:22 | NUR ---
FOLLOWING FOR DC PLANNING. CLINICAL INFO REVIEWED. NO DIALYSIS TODAY. RENAL BX PATH PENDING. CONTINUES ON IVF WITHBICARB, IV ROCEPHIN FOR UTI. PT FROM HOME WITH SPOUSE AND INDEPENDENT MIDLEVEL PROVIDER, NOW WITH SIGNIFICANT DEBILITY AND PT/OT WORKING WITH PT. [facility] NURSE SHALE MINER [place] ZAMBRANO HERE TO DISCUSS PT NEEDS FOR DC PLANNING. CLINICAL UPDATE PROVIDED AND INDICATED LOOKING FOR ACUTE CARE POS DC OPTION, LTAC VS ACUTE REHAB. UNSURE TIMELINE FOR DC AND WILL DISCUSS WITH HOSPITALIST IN AM.
[2019-02-10 15:47] VITALS: BP 157/87
--- NOTE | 2019-02-10 16:43 | NUR ---
ASSESSMENT DOCUMENTED. PT ALERT AND ORIENTED. PRN PAIN MED GIVEN FOR RIGHT HIP AND LEFT FOOT PAIN. UP IN THE CHAIR THIS SHIFT. WILL CONTINUE TO MONITOR.
[2019-02-10 20:37] VITALS: BP 150/87
[2019-02-11 04:53] LABS: HEMATOCRIT 24.1 % (42.0-52.0); MCH 27.7 pg (26.0-34.0); MCHC 33.2 g/dL (28.0-37.0); MCV 83.5 fL (80.0-100.0); RBC 2.88 mil/uL (4.50-6.00); RDW 17.1 % (10.5-14.5); WBC 7.5 thou/uL (4.0-11.0)
[2019-02-11 05:06] LABS: ALBUMIN 1.9 g/dL (3.4-5.0); CALCIUM 7.9 mg/dL (8.5-10.1); CREATININE 3.4 mg/dL (0.7-1.3); PHOSPHORUS 2.3 mg/dL (2.5-4.9); POTASSIUM 3.5 mmol/L (3.5-5.1)
[2019-02-11 05:54] VITALS: BP 156/82
--- NOTE | 2019-02-11 06:38 | NUR ---
ASSESSMENT DOCUMENTED. DENIES ANY PAIN. COUGHING NOTED AFTER GIVING WATER. ASPIRATION PRECAUTION MAINTAINED. ABLE TO SLEEP WELL. DENIESS ANY PAIN. MAINTAINED ON HIGH FALL RISK. FF UP POC.
[2019-02-11 07:52] VITALS: BP 169/94
--- NOTE | 2019-02-11 12:04 | NUR ---
APPEARS APPRORPIATE FOR ACUTE REHAB POST DISCHARGE. DISCUSSED WITH DR. HEAD TODAY AND AGREEABLE TO 5N CONSULT. 5N ANMOL NAIDU MET WITH PT TO DISCUSS POSSIBLE 5N STAY AND PT AGREEBALE. DR. CULVER CONSULTED AND REQUESTED 5N ADMISSIONS SUBMIT FOR AUTH WITH [facility].
[2019-02-11 12:37] VITALS: BP 177/98
--- NOTE | 2019-02-11 14:37 | NUR ---
PATIENT SEEN BY ELTON FERRIS NP WITH DR. CULVER. PATIENT MEETS CRITERIA FOR ACUTE REHAB STAY AND AUTHORIZATION WAS REQUESTED FROM [facility] FOR PATIENT TO ADMIT TO ON 02/14/19. AWAITING RESPONSE FROM INSURANCE.
[2019-02-11 17:00] VITALS: BP 119/84
[2019-02-11 17:10] VITALS: BP 119/84
--- NOTE | 2019-02-11 18:51 | NUR ---
ASSESSMENT DOCUMENTED. PT ALERT AND ORIENTED WITH WITH FORGETFULNESS. PLEASANT AND COOPERATIVE WITH CARES. PRN PAIN MED GIVEN WITH PARTIAL RELIEF. AT THE BEDSIDE MOST OF THE SHIFT. HAD SWALLOW STUDY THIS SHIFT. NPO. SEE SPEECH THERAPIST NOTES. GI CONSULTED FOR POSSIBLE PEG TUBE PLACEMENT ON THURSDAY. HAD HBP THIS SHIFT PRN BP MEDS GIVEN. NO CONCERNS AT THIS TIME. WILL CONTINUE TO MONITOR.
[2019-02-11 19:45] VITALS: BP 143/83
--- NOTE | 2019-02-12 04:29 | NUR ---
ASSESSMENT DOCUMENTED. DISORIENTED TO DATE, REORIENTATION DONE. DYSPHAGIA NOTED. ABLE TO TAKE ONE PILL ONLY BUT TAKES TIME TO SWALLOW, REFUSED REMAINING PILL THAT WAS ALREADY CRUSHED. TURNING DONE. ORAL CARE RENDERED, BACK CARE AND PERIANAL CARE DONE, MOISTURE BARRIER APPLIED. COMPLAINT OF PAIN ON THE RIGHT KNEE AND RIGHT ANKLE WELL PAIN ON THE LEFT FOOT. REFUSED TO TAKE PO PAIN MED. REPOSITIONING DONE Q 2 HOURS. FF UP POC.
[2019-02-12 04:55] VITALS: BP 158/75
[2019-02-12 05:21] LABS: ALBUMIN 1.9 g/dL (3.4-5.0); CALCIUM 8.1 mg/dL (8.5-10.1); CREATININE 3.4 mg/dL (0.7-1.3); POTASSIUM 3.3 mmol/L (3.5-5.1)
[2019-02-12 07:37] VITALS: BP 151/67
[2019-02-12 12:00] VITALS: BP 153/67
[2019-02-12 16:41] VITALS: BP 182/86
[2019-02-12 19:40] VITALS: BP 155/85
--- NOTE | 2019-02-12 19:51 | NUR ---
ASSUMED CARE OF PATIENT AT 0700. ASSESSMENTS CHARTED. PATIENT'S AT THE BEDSIDE. ACCUCHECK ACHS, BLOOD SUGARS IN LOW 100'S, FLUIDS CHANGED TO DEXTROSE. PATIENT REFUSED ALL PO MEDS TODAY. PATIENT IS NPO WITH THE EXCEPTION OF MEDS WITH SIPS OF WATER. PATIENT COMPLAINED OF INCREASING DISCOMFORT BREATHING AND WAS STARTED ON OXYGEN AT 3 LITERS WITH MINIMAL IMPROVEMENT. PATIENT HAD A CT OF NECK/CHEST AND TOLERATED PROCEDURE WELL. PATIENT STARTED ON ZOSYN. TEMPORARY DIALYSIS CATHETER REMOVED BY IV TEAM. PATIENT RESTING AND WILL CONTINUE WITH POC.
[2019-02-13 04:27] VITALS: BP 151/84
--- NOTE | 2019-02-13 04:57 | NUR ---
ASSESSMENT DOCUMENTED.PT RESTING IN NO ACUTE DISTRESS AT THIS TIME.DENIES PAIN.VSS.A/OX4.PT BEEN SLEEPING MOST OF THE NOC.EASY TO AROUSE, FOLLOWS COMMANDS APPROPRIATELY.ON O2 AT 3LITERS PNC,SATS [place].PT DENIES ANY S/SX OF RESP DISTRESS.INCONTINENT OF URINE.LEFT SIDE OF THE NECK SWOLLEN WELL ELODIA LES.ELEVATED BLES.IVF INFUSING.NPO EXCEPT WITH MEDS THAT PT REFUSES D/T DIFFICULTIES IN SWALLOWING.POC TO HAVE PEG TUBE PLACED .LUNGS HAVE SOME CRACKLES.ON IV ANTIBIOTICS,TOLERATING.DIALYSIS CATHETER REMOVED BY IV TEAM NURSE.NO ACTIVE BLEEDING NOTED AT THIS TIME.WILL CONT ITH POC.
[2019-02-13 05:35] LABS: ALBUMIN 1.8 g/dL (3.4-5.0); CALCIUM 7.8 mg/dL (8.5-10.1); CREATININE 3.4 mg/dL (0.7-1.3); PHOSPHORUS 3.6 mg/dL (2.5-4.9); POTASSIUM 3.1 mmol/L (3.5-5.1)
[2019-02-13 08:05] VITALS: BP 154/89
[2019-02-13 13:43] VITALS: BP 156/82
[2019-02-13 14:43] LABS: BE(vivo) 0.7 mmol/L (-2 to +3); HCO3 24.3 mmol/L (22.0-26.0); PCO2 34.5 mmHg (35.0-45.0); PO2 106.9 mmHg (80.0-100.0); pH 7.465 (7.360-7.450); sO2 98.2 % (92.0-98.0)
[2019-02-13 16:27] VITALS: BP 146/72
--- NOTE | 2019-02-13 18:33 | NUR ---
ASSUMED CARE OF PT AT 0700. PT ALERT AND ORIENTED TO SELF AND SITUATION. PT HAS MASS/GOITER IN THROAT AND AIRWAY MAINTAINED WITH NO NECESSARY INTERVENTIONS. PT HAS TROUBLE SWALLOWING AND HAS BEEN NPO WITH ORAL CARE. PT HAD DR. JOSSY MACIEL AND HE WITH SCOPE PT AT THE BEDSIDE IN AM - HURRICANE SPRAY ORDERED. VITALS WITHIN NORMAL LIMITS WITH BLOOD PRESSURE SLIGHTLY HIGH AND HYDRALIZINE ORDERED FOR SBP >160. PT WAS SINUS TACH SINUS RHYTHM ON TELEMETRY. DR. HEAD ORDERED C-DIFF TESTING AND SAMPLE SENT TO LAB. PT IN PRECAUTIONARY ISOLATION PENDING RESULTS.
[2019-02-13 19:54] VITALS: BP 149/75
[2019-02-14 03:46] LABS: ALBUMIN 1.7 g/dL (3.4-5.0); CALCIUM 7.2 mg/dL (8.5-10.1); CREATININE 3.2 mg/dL (0.7-1.3); PHOSPHORUS 2.8 mg/dL (2.5-4.9); POTASSIUM 3.2 mmol/L (3.5-5.1)
[2019-02-14 04:52] VITALS: BP 152/80
--- NOTE | 2019-02-14 06:07 | NUR ---
ASSESSMENT DOCUMENTED.PT RESTING IN NO ACUTE DISTRESS.REMAINS ON O2 AT 3LITERS PNC,SATS [place].PT CONTINUES TO C/O DIFFICULTY SWALLOWING.DENIES PAINS.KNEE PAINS WHILE MOVING IN BED.ELODIA LES ELEVATED D/T EDEMA.POC IS TO AHVE BEDSIDE FIBEROPTIC SCOPE THIS AM.ISOLATION MAINTAINED FRO C-DIFF.PT STARTED ON FLAGYL IVPB.WILL CONT TO MONITOR PER POC.
[2019-02-14 07:50] VITALS: BP 138/72
[2019-02-14 11:36] VITALS: BP 146/72
--- NOTE | 2019-02-14 13:47 | NUR ---
Sp with Dr Chadwick plan transfer of patient to for cont acute care and oncology follow for tx plan with new MM diagnosis. sp with Dr Chadwick they are unable to accept due to not accepting of insurance. [facility] noted to be in network. of patient agreeable to inquire with [facility] she prefers no transfer to [facility]. SP with Dorothea aguilera at [facility] faxed scanned copy of medical cards and face sheet for review. Updated at bedside.
[2019-02-14 15:47] VITALS: BP 137/72
[2019-02-14 16:56] LABS: CLARITY SLIGHTLY CLOUDY; COLOR YELLOW; SOURCE RIGHT THORA; TOTAL VOLUME 60 mL
[2019-02-14 16:58] LABS: SOURCE RIGHT THORA
[2019-02-14 17:11] LABS: BF NUCLEATED CELLS 4282; BF RBC 3105
[2019-02-14 17:58] LABS: BF MACROPHAGE 87; BF NEUTROPHILS 9
--- NOTE | 2019-02-14 18:08 | HC ---
[facility] [place] [place] [address] CONSULTATION Name: ROMMEL KHALIL Room #: 204-P [facility] IN [facility].#: [id number] Admission: 02/06/19 ������������������ Attend Phys: Ray Calderón MD Discharge: ������������������ Date of : 34 Report #: [id number] THIS REPORT FOR: //name// CC: Ray Akins MD DATE OF SERVICE: 02/13/2019 REFERRAL PHYSICIAN: Dr. Chadwick. REFERRING PHYSICIAN: Dr. Keith Akins. REASON FOR REFERRAL: Pleural effusion, mediastinal adenopathy, neck mass. HISTORY OF PRESENT ILLNESS: The patient is an 83-year-old -Vietnamese male who was admitted on 02/06/2018 for acute renal failure. Since admission, he was found to have pleural effusions, chronic mediastinal adenopathy and a neck mass from a video swallow. A pulmonary consultation was requested. The patient has a complex medical history. He has chronic kidney disease, now transitioning towards acute kidney injury with worsening oliguria. He is also known to have monoclonal gammopathy of unknown significance, history of pulmonary embolus. Recently, he was found to have retroperitoneal bleed. He was also found to have ascites. Paracentesis yield plasma cells and in the ascitic fluid. The patient's health started to deteriorate recently with worsening renal function. For that reason, he was admitted. Currently, he appears dyspneic, but denies any pain. He is awake, alert. Of note, the patient had undergone bone marrow biopsy in the outpatient. The bone marrow biopsy was said to be negative. Currently, he appears somewhat dyspneic. He has increased upper airway breath sounds suggestive of partial upper airway obstruction. PAST MEDICAL HISTORY: As mentioned above including remote history of pulmonary embolus diagnosed in 2003, on anticoagulation, hypertension, chronic kidney disease, vitiligo, anemia, gout, monoclonal gammopathy of unknown significance, ascites with cytology showing plasma cells, neuropathy, apparent history of chronic mediastinal adenopathy, recent retroperitoneal bleed as mentioned above. History of obstructive sleep apnea, intolerant to use of CPAP. PAST SURGICAL HISTORY: Hemorrhoidectomy in 1969. Otherwise, unremarkable. [facility] [address] [place] [address] CONSULTATION Name: SUSAN KHALILRAMAKRISHNA Bocanegra Room #: 204-P [facility] IN [facility]#: [id number] Admission: 02/06/19 ������������������ Attend Phys: Ray Calderón MD Discharge: ������������������ Date of : 34 Report #: [id number] ALLERGIES: IODINE AND EGGS, REACTIONS UNSPECIFIED. THE PATIENT IS ALLERGIC TO CONTRAST DYE DUE TO VOMITING AND HIVES AND WELTS, EGGS CAUSES VOMITING. HOME MEDICATIONS: List reviewed. Cardura, Crestor, Synthroid, potassium supplements, Neurontin, Nexium, amoxicillin, prednisone 5 mg once a day. SOCIAL HISTORY: He has smoked in the past, but quit few years ago. The patient denies any alcohol use. REVIEW OF SYSTEMS: As mentioned above, otherwise notable for dysphagia, generally not feeling well over the last few weeks. PHYSICAL EXAMINATION: GENERAL: He is awake, alert, in mild distress due to dyspnea. VITAL SIGNS: Temperature is 99 degrees Fahrenheit, pulse is 100, respiratory rate is 20, blood pressure 156/82 mmHg, saturation 95%. HEENT: Normocephalic, atraumatic. NECK: Notable for prominence in both right and left base of the neck. Trachea appears midline. CHEST: Breath sounds are fair. Few scattered crackles in the bases. There is decrease in the right base. No wheezes. CARDIOVASCULAR: Normal S1, S2. No murmurs or gallop. There is no JVD, no carotid bruit. Pulses are 2+/4+ bilaterally . ABDOMEN: Soft, nontender, no organomegaly or masses felt. GENITOURINARY: Deferred. RECTAL: Deferred. EXTREMITIES: No cyanosis, clubbing, edema. DERMATOLOGIC: Notable for vitiligo. LABORATORY DATA: CT chest reviewed showing moderate right-sided pleural effusion, a large neck mass extending into the superior mediastinum with surrounding adenopathy. There is moderate right pleural effusion, small left-sided pleural effusion, mild bilateral lower lobe infiltrates noted, 6 mm left upper lobe nodules noted. There are also posterior mediastinal and retrocrural masses noted. CT neck as mentioned above showing well circumscribed soft tissue mass extending from the left submandibular retropharyngeal paravertebral soft tissue areas located in the left neck area extending across the midline to the right measuring 7 x 12 x 15 cm with local mass effect and displacement of structures. There is narrowing of the hypopharynx due to the mass. CT abdomen and pelvis performed in 12/2017 showed a small to moderate abdominal and pelvic ascites, extensive perinephric, retroperitoneal soft tissue stranding consistent with recent retroperitoneal hemorrhage. The video swallow showed large retropharyngeal mass centered at C4 level, displacing the pharynx forward. Leg Doppler ultrasound was negative for DVT. TSH was 21, sodium 142, potassium 3.1, chloride 104, CO2 23, BUN 25, creatinine 3.4, on admission was [facility] [address] [place] [address] CONSULTATION Name: ROMMEL KHALIL Room #: 204-P [facility] IN [place].#: [id number] Admission: 02/06/19 ������������������ Attend Phys: Ray Calderón MD Discharge: ������������������ Date of : 34 Report #: [id number] 8.6. Liver enzymes are moderately abnormal, hemoglobin is 8.0, WBC 7500 and platelets are normal. Albumin 1.8. Arterial blood gas revealed pH 7.46, pCO2 of 34, pO2 106 on 3 liters of O2. IMPRESSION: 1. Large circumscribed left neck mass in this 83-year-old -Vietnamese male. The mass appears to extend into the superior mediastinum. Rule out malignancy. 2. Dysphagia due to above. Recommend n.p.o. status. 3. History of chronic mediastinal adenopathy. Unclear whether this is a separate process, but presumed related to the neck pathology. 4. Pleural effusion, bilateral greater in the right than the left may be associated with worsening renal failure. Thoracentesis has been scheduled for tomorrow. Cytology will be requested. 5. Acute hypoxic respiratory failure due to above. 6. History of obstructive sleep apnea, intolerant to the use of CPAP. 7. Remote history of pulmonary embolus, 2004 had been on anticoagulation. Details not entirely clear whether this was an unprovoked event. Note, the patient had a recent retroperitoneal bleed. Ongoing anticoagulation may have to be reassessed especially with above problems as mentioned. 8. Ascites, probably related to processes as mentioned above. 9. Acute kidney injury/chronic kidney disease. 10. Monoclonal gammopathy of unknown significance, note the patient had recent biopsy within the last month, which was negative. RECOMMENDATIONS: Agree with ENT consultation. Agree with thoracentesis as scheduled. If further workup is necessary, diagnostic bronchoscopy along with ultrasound biopsy may be necessary. Eventually outpatient PET scan imaging will be helpful. In terms of his hypoxic respiratory failure, the patient is fairly compensated on 3 liters of O2. He is at risk for developing further respiratory compromise given the large right neck mass. He will need to be followed closely. As mentioned above, would leave the patient n.p.o. for now. DVT and GI prophylaxis will be addressed. Thank you for this consultation. ��������������������������������������������� <ELECTRONICALLY SIGNED> ���������������������������������������� By: Donte Curry MD ��������������������������������������������� 02/14/19 1808 [id number] Donte Curry MD /nt
--- NOTE | 2019-02-14 18:26 | NUR ---
PT CARE ASSUMED APPROX 0700. PT DROWSY BUT EASILY AROUSABLE. ORIENTED X4 WITH FORGETFULNESS. SOMETIMES CONFUSED IN CONVERSATION. DENIES PAIN AND SOA. VSS. BS SLIGHTLY ELEVATED. NO SSI IN POC. TURNING PT Q2 HRS AND PRN. IVF CHANGED THIS SHIFT. IV ABT REMAINS TO POC. ENTERIC CONTACT ISOLATION REMAINS TO POC. AT BEDSIDE MOST OF SHIFT. SHE DENIES QUESTIONS OR CONCERNS REGARDING POC. FAMILY AT BEDSIDE STILL. PT INCONT OF BOWEL AND BLADDER. THORACENTESIS COMPLETED THIS SHIFT. PT RESTING CALMLY WITHOUT S/S OF DISTRESS NOTED.
[2019-02-14 19:00] VITALS: BP 154/80
[2019-02-15 03:56] LABS: CALCIUM 7.3 mg/dL (8.5-10.1); CREATININE 2.8 mg/dL (0.7-1.3); MAGNESIUM 1.1 mg/dL (1.8-2.4); PHOSPHORUS 2.5 mg/dL (2.5-4.9); POTASSIUM 3.1 mmol/L (3.5-5.1)
[2019-02-15 03:58] LABS: ALBUMIN 1.6 g/dL (3.4-5.0)
[2019-02-15 04:34] VITALS: BP 134/85
--- NOTE | 2019-02-15 04:56 | NUR ---
ASSUMED PT CARE AT 1900 WITH BEDSIDE REPORT TAKEN AND FAMILY AT BEDSIDE. NO SIGN OF DISTRESS NOTED. PT IS LAYING IN BED AND RESTING COMFORTABLY. VITAL SIGNS STABLE. PT IS NSR ON THE MONITOR. SCHEDULED MEDS CRUSHED AND ADMINISTERED TO PT. PT IS STABLE THROUGHOUT THE NIGHT. DENIES ANY FURTHER NEEDS AT THIS TIME
[2019-02-15 07:16] VITALS: BP 144/73
[2019-02-15 11:07] LABS: BODY FLUID ALBUMIN 1.6 g/dL (()); BODY FLUID AMYLASE 353 U/L (()); BODY FLUID GLUCOSE 113 mg/dL (()); BODY FLUID LDH 4398 IU/L (()); BODY FLUID PROTEIN 5.6 g/dL (())
[2019-02-15 12:34] VITALS: BP 172/77
[2019-02-15] MEDS ORDERED: ZOSYN 3.3753.375 GM IV (13:31)
--- NOTE | 2019-02-15 14:04 | NUR ---
PT. TRANSFERRING TO [facility] TODAY FOR ONC. TREATMENT OF PT'S NECK MASS. NOTIFIED PT AND AT BEDSIDE THAT TRANSPORATATION ARRANGED VIA AMBULANCE FOR 1545. UNIT NOTIFIED AND CHART COPY PER US. RN GIVEN NUMBER TO CALL FOR REPORT.
--- NOTE | 2019-02-15 15:24 | NUR ---
[facility] reported yesterday cannot accept they have a wait list and no plan to place patient on wait list. ANA RN sp with insurance and [facility] not in network with insurance. Discussed with . Family interested in [facility]. Sp with [facility] who reports they do not have a hemo/onc specified unit. Discussed with . Family interested in [facility]. ANA RN reports sp with insurance and [facility] not in network. Sp with this am, discussed option of [facility]. She was agreeable. [facility] accepting of patient Dr Juan Antonio Rubi accepting. RN to call report to [facility]. Patient to transfer via [facility] at 1545 to Room 4228. Chart copied. Radiology uploaded to cloud at [facility] and hard copy placed in chart. reports she sp with insurance and they can utilize out of network benefits. She reports if not pleased with [facility] will reconsider [facility] and out of network benefits.
--- NOTE | 2019-02-15 15:51 | NUR ---
ASSESSMENT CHARTED - MEDS PER DEC - GIVEN K+ AND MAG BOLUS. PT HAS REMAINED NPO THROUGHOUT THE DAY, WENT TO INTERVENTIONAL RADIOLOGY AND HAD CENTRAL LING PLACED - AND THEN NECK BIOPSY COMPLETED. PT UP TO THE CHAIR THIS AM - AIMEE WELL. NO CO'S OF PAIN OR NAUSEA. PATIENT TRANSFERED TO [facility] THIS AFTERNOON FOR FURTHER TREATMENT. LEFT UNIT VIA AMBULANCE - WILL MEET PATIENT [place] [facility] NO CO'S AT TIME OF D/C.
--- NOTE | 2019-02-17 14:06 | PATH ---
[facility] [place] [address] PATHOLOGY RPT PROCEDURE Name: ROMMEL KHALIL Room #: 204-P DIS IN M.R.#: [id number] ������������������ Admission: 02/06/19 ������������������ Date of : 34 Discharge: 02/15/19 Report #: [id number] Path Case #: [id number] Note [facility] Accession Number: [id number] TESTS RESULT FLAG UNITS REF RANGE LAB Clinician Provided Cytology Information No. 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 THIS INTERPRETATION INCLUDES EVALUATION OF A CELL BLOCK. Comment: Numerous sheets of plasmacytoid cells are identified with rare reactive mesothelial cells in the background. Immunohisotchemical stains are performed and included BerEP4, Calretinin and CD138. CD138 shows strong membranous reactivity within these cells supporting plasma cells. The prior abdominal fluid, [id number] (see separate report) is compared to the current pleural fluid and the cells are morphologically similar. Based on the fact that the prior fluid was sent for flowcytometric analysis which showed a Homer restricted plasma cell population, this analysis is not repeated on the current one. Findings support the diagnosis rendered. BerEP4 is nonreactive. Calretinin is reactive within the background mesothelial cells. Pathologist ICD10: 02 J91.0 Signed out by: Hawa Lantigua MD, Pathologist NPI- [id number] Performed by: Shira Hernandez, Architectural Sales Consultant ([facility]) Gross description: 01 20ML, DARK YELLOW, CLOUDY /LCS FLAG LEGEND: L-Low Normal,H-High Normal,LL-Alert Low,HH-Alert High <-Panic Low,>-Panic High,A-Abnormal,AA-Critical Abnormal Performed at: 01 [facility] [address] [place] [address] Charan Enriquez MD, 02 [facility] [address] [place] [address] PATHOLOGY RPT PROCEDURE Name: SIMRANROMMEL Sahra Room #: 204-P DIS IN .R.#: [id number] ������������������ Admission: 02/06/19 ������������������ Date of : 34 Discharge: 02/15/19 Report #: [id number] Path Case #: [id number] [address], [place] [address] Hawa Lantigua MD, Specimen Comment: A courtesy copy of this report has been sent to Specimen Comment: [phone], , . Specimen Comment: Report sent to DR HEAD,DR WILLIAMSON / DR DAVILA Specimen Comment: Report sent to Performed at: [address], [place], [place] [address] MD Charan Enriquez MD Phone: [phone]
--- NOTE | 2019-02-17 15:05 | PATH ---
[facility] [address] [place] [address] PATHOLOGY RPT PROCEDURE Name: REINALDO KHALIL Room #: 204-P [facility] IN M.R.#: [id number] ������������������ Admission: 02/06/19 ������������������ Date of : 34 Discharge: 02/15/19 Report #: [id number] Path Case #: [id number] [facility] Accession Number: [id number] . 01 Material submitted: . kidney - LEFT GENERAL RENAL BIOPSY. Modifiers: left . 01 Clinical history: . Left general kidney biopsy . 02 Diagnosis: Special studies report received from [facility], [id number] [place] [address], [place] [address], on case [id number], labeled with their number [id number], dated 02/11/2019. . Specimen submitted: By Harley Rodriguez MD For Kidney, biopsy . PRELIMINARY DIAGNOSIS: . Limited Biopsy. See Comment. . [place] Light Chain Proximal Tubulopathy. . Perirenal Fibroadipose Tissue with Atypical Hematopoietic Infiltrate. See Comment. . Global (02/09) and Segmental Glomerulosclerosis. . Comment: The biopsy is limited by the lack of renal cortex present for light microscopic examination. 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 Additionally, the perirenal fibroadipose tissue is sampled and contains an atypical hematopoietic infiltrate with plasmacytic features and frequent apoptosis and mitosis. This, along with the clinical history, is suspicious for malignancy and the biopsy will be sent for Hematopathology consultation for further classification. The results will be updated in a final report. . Clinical History: The patient is an 83-year-old male with acute on chronic renal failure. 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 Serum creatinine is 8-9 up from a baseline of 2 Bone marrow biopsy two years ago was negative. . [address] [address] PATHOLOGY RPT PROCEDURE Name: REINALDO KHALIL Room #: 204-P [facility] IN ..#: [id number] ������������������ Admission: 02/06/19 ������������������ Date of : 34 Discharge: 02/15/19 Report #: [id number] Path Case #: [id number] Gross Description: Received from [facility] via [facility] are two foreign specimen bottles; one bottle contains formalin and the other contains Esteban's fixative. The bottles are labeled with the patient's name (Reinaldo Khalil). . Received in formalin is one piece of garcia tissue measuring 1.5 x 0.1 x 0.1 cm (with fatty end dissected off). One piece is submitted for electron microscopy and the remainder of the tissue is submitted in its entirety for light microscopy. . Received in Esteban's fixative is one piece of garcia tissue measuring 1.3 x 0.1 x 0.1. The specimen is submitted in its entirety for immunofluorescence microscopy. . Microscopic Description: LIGHT MICROSCOPY: . Sections of kidney are represented almost entirely by medulla with a small amount of attached urothelium. A small portion of subcapsular cortex with attached fibroadipose tissue is present and contains four glomeruli, three of which are globally sclerotic. The remaining glomerulus shows ischemic wrinkling and retraction of the tuft with an area of segmental sclerosis. There is interstitial fibrosis and tubular atrophy throughout the area of subscapular cortex. The attached fibroadipose tissue shows a dense inflammatory infiltrate composed of medium-sized cells with plasmacytoid morphology, often prominent nucleoli, and frequent apoptosis and mitosis. Immunohistochemical staining for CD2 and CD20 is performed and both are negative within the neoplastic cells. Focal tubules of the outer medulla show cytoplasmic swelling and vacuolization. The tubular lumens show few hyaline proteinaceous casts without cellular reaction. Small arteries and arterioles within the perirenal fibroadipose tissue are unremarkable. A Congo red stain for amyloid is negative. Toluidine blue stained sections prepared for electron microscopy show renal cortex with two glomeruli, neither of which is globally sclerotic. The most intact glomerulus shows no significant tubulointerstitial scarring or inflammation. The tubular epithelium shows cytoplasmic vacuolization and reactive nuclear changes. . Standard of care requirements for proper analysis of renal biopsies mandates serial sections, and PAS, Romero silver, trichrome and SMMT stains at multiple levels. PAS stains are used to evaluate various aspects of the glomerular, tubular, and vascular basement membranes. Romero silver stains are used to evaluate thickening, reduplication, "spiking" or "bubbling" of the glomerular basement membrane. Toluidine blue stained sections highlight glomerular basement membranes and demonstrates unusual types of deposits. It also reveals details of tubular epithelial cells and aids in the analysis of vascular lesions. Christopher trichrome stains are used to evaluate interstitial fibrosis and basement membrane deposits. [address] [address] PATHOLOGY RPT PROCEDURE Name: REINALDO KHALIL Room #: 204-P DIS IN M.R.#: [id number] ������������������ Admission: 02/06/19 ������������������ Date of : 34 Discharge: 02/15/19 Report #: [id number] Path Case #: [id number] The SMMT stain helps evaluate basement membrane changes, immune deposits and tubulointerstitial scarring. Controls are routinely run on all special stains and are verified for acceptability. A review of the technical quality of routine slides is made before results are reported. . . IMMUNOFLUORESCENCE: Once core of renal parenchyma is present for evaluation showing up to 11 glomeruli, one of which is globally sclerotic. The sections are stained for IgG, IgM, IgA, C3, C1q, albumin, fibrinogen, and kappa and lambda light chains. The glomeruli show nonspecific mesangial/paramesangial staining by IgM (trace to 1+) and lambda (trace) light chain. All other stains are negative within the glomeruli. There is strong staining of the proximal tubular protein reabsorption droplets by kappa light chain (3+) as compared to lambda light chain (trace-1+). [place] and lambda stain equally within the tubular proteinaceous casts. . Immunofluorescence for kappa and lambda light chains is also performed on the paraffin-embedded tissue and shows equal staining in the tubular casts. The infiltrate within the perirenal fibroadipose tissue shows stronger staining by kappa than lambda light chain with a ratio of approximately 2-3:1. . Positive and negative controls are run on all immunofluorescent stains and are verified for acceptability before results are reported. Internal antigens serve as positive controls. . ELECTRON MICROSCOPY: One block is prepared. Ultrastructural evaluation of a glomerulus reveals basement membranes which are uniform and are of normal thickness. Glomerular capillary loops are patent. No immune or light chain-type electron-dense deposits are present along the glomerular basement membranes or within the mesangium. There is mild to moderate epithelial foot process effacement. The tubular basement membranes are without deposits. Special procedures including immunofluorescence and electron microscopy correlate with the light microscopy findings. . Note: Some of the tests reported here may have been developed and performance characteristics determined by [facility]. They have not been cleared or approved by the U.S. Food and Drug Administration (FDA). The FDA does not require this test to go through premarket FDA review. This test is used for clinical purposes. It should not be regarded as investigational or for research. [facility] is certified under the Clinical Laboratory Improvement Amendments of 1988 (CLIA) as qualified to perform high complexity clinical laboratory testing. . [address] [address] PATHOLOGY RPT PROCEDURE Name: REINALDO KHALIL Room #: 204-P DIS IN M.R.#: [id number] ������������������ Admission: 02/06/19 ������������������ Date of : 34 Discharge: 02/15/19 Report #: [id number] Path Case #: [id number] Physician/Physician's office called on 02/11/2019 at 1:59* PM Central. . *I have reviewed the clinical history, the pertinent gross findings, all microscopic materials, discussed the case with the clinician when appropriate, and have rendered the final diagnosis. . . Final Diagnosis performed by Marimar Gonsalves M.D. Electronically signed 02/11/2019 7:00:05 PM . . A complete copy of the report is on file. . Professional and technical services performed by [facility] at [address] [facility], [facility] [address], [place], [address]. . (AMJ 02/14/2019) . AZJ/02/16/2019 . 02 Electronically signed: . Hawa Lantigua MD, Pathologist NPI- [id number] . 01 Gross description: . The specimen is received in formalin, labeled "Reinaldo Khalil, left renal BX", is a garcia needle core approximately measuring 1.5 cm in length with an average 0.1 cm diameter. Also received in Dimitrios fixative, labeled "Reinaldo Khalil, left renal BX", consist of a similar needle core, approximately measuring 1.4 cm in length with an average 0.1 cm diameter. The specimens are forwarded to [facility]. (SWS; 02/09/2019) SHS/[facility]S . 02 Pathologist provided ICD-10: N17.9, N18.9 . 02 CPT . 902196 Specimen Comment: A courtesy copy of this report has been sent to Specimen Comment: [phone], , . Specimen Comment: Report sent to ,DR BRAND / DR WILLIAMSON Performed at: [address], [place], [place] [id number] MD Charan Enriquez MD Phone: [phone] [address] [address] PATHOLOGY RPT PROCEDURE Name: REINALDO KHALIL Room #: 204-P DIS IN M.R.#: [id number] ������������������ Admission: 02/06/19 ������������������ Date of : 34 Discharge: 02/15/19 Report #: [id number] Path Case #: [id number] Performed at: [address] [id number] MD Hawa Lantigua MD Phone: [phone]
== END 2019-02-15 15:53 | disposition short-term general hospital (02) | DRG 871 ==
LOC: ER 06:51 → 2N 08:54 → EROBS 08:54 → 2N 10:06
PROVIDERS: Emergency Medicine; Hospitalist; Internal Medicine; Internal Medicine Nephrology; Internal Medicine Pulmonary Disease; ADMIT Hospitalist
PROC: 0TB13ZX Excision of Left Kidney, Percutaneous Approach, Diagnostic (ICD-10-PCS; principal; 2019-02-09)
PROC: 0W993ZZ Drainage of Right Pleural Cavity, Percutaneous Approach (ICD-10-PCS; 2019-02-14)
PROC: 0GBG3ZX Excision of Left Thyroid Gland Lobe, Percutaneous Approach, Diagnostic (ICD-10-PCS; 2019-02-15)
PROC: B54NZZA Ultrasonography of Left Upper Extremity Veins, Guidance (ICD-10-PCS; 2019-02-15)
PROC: 05HY33Z Insertion of Infusion Device into Upper Vein, Percutaneous Approach (ICD-10-PCS; 2019-02-15)
DX: A41.9 Sepsis, unspecified organism (principal); N17.0 Acute kidney failure with tubular necrosis; J98.59 Other diseases of mediastinum, not elsewhere classified; J96.01 Acute respiratory failure with hypoxia; E43 Unspecified severe protein-calorie malnutrition; J18.9 Pneumonia, unspecified organism; R18.8 Other ascites; C90.00 Multiple myeloma not having achieved remission; J90 Pleural effusion, not elsewhere classified; N39.0 Urinary tract infection, site not specified; E03.9 Hypothyroidism, unspecified; K21.9 Gastro-esophageal reflux disease without esophagitis; M10.9 Gout, unspecified; E87.5 Hyperkalemia; E78.00 Pure hypercholesterolemia, unspecified; N18.9 Chronic kidney disease, unspecified; D47.2 Monoclonal gammopathy; G47.33 Obstructive sleep apnea (adult) (pediatric); E11.40 Type 2 diabetes mellitus with diabetic neuropathy, unspecified; R13.10 Dysphagia, unspecified; N28.1 Cyst of kidney, acquired; I12.9 Hypertensive chronic kidney disease with stage 1 through stage 4 chronic kidney disease, or unspecified chronic kidney disease; E11.22 Type 2 diabetes mellitus with diabetic chronic kidney disease; D75.9 Disease of blood and blood-forming organs, unspecified; E78.5 Hyperlipidemia, unspecified; D63.8 Anemia in other chronic diseases classified elsewhere; E87.6 Hypokalemia; E53.8 Deficiency of other specified B group vitamins; E83.42 Hypomagnesemia; Z86.711 Personal history of pulmonary embolism; Z91.041 Radiographic dye allergy status; Z91.012 Allergy to eggs; Z87.891 Personal history of nicotine dependence; Z79.82 Long term (current) use of aspirin; Z79.899 Other long term (current) drug therapy; Z68.31 Body mass index [BMI] 31.0-31.9, adult
CPT/HCPCS: 10081; 32100

== ENCOUNTER 2019-06-16 13:59 | Inpatient (IN) | payer OTHER ==
[~2019-06-16] VITALS: Ht 177.8 cm; Wt 82.7 kg
--- NOTE | ~2019-06-16 | H ---
[facility] [place] [address] HISTORY AND PHYSICAL Name: ORMMEL KHALIL Sahra Room #: 243-P ADM IN M.R.#: [id number] Admission: 06/16/19 ������������������ Attend Phys: Ced Montoya MD Discharge: ������������������ Date of : 34 Report #: [id number] THIS REPORT FOR: //name// CC: Ced Montoya DATE OF SERVICE: 06/16/2019 CHIEF COMPLAINT: Back pain, confusion, weakness, dehydration, and UTI. HISTORY OF PRESENT ILLNESS: The patient's initial visit to my office was 06/10/2019, at which time he was weak, was assisted into the office by wheelchair, and was found to be debilitated. 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 He required a PEG tube for feeding, had experienced C. diff, and still had a broad area of superficial excoriation around his buttocks with a 3 x 3 cm, malodorous gluteal fold sacral decubitus ulcer, being treated by home care. He had episodes of confusion at home, and reported more pain in his back than usual, and these were his reasons for presenting to the Emergency Room at this time. PAST MEDICAL HISTORY: In my office, he was clearly weak and debilitated. He had active deep-appearing decubitus ulcer in the sacral/gluteal fold area. 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 He came to the ER 12/23/18 with a month long history of constipation and abdominal pain. His INR was 15+, and had a retroperitoneal bleed. He presented02/06/19 with sepsis and dehydration, and had Lrrjq-yf-dazrgri renal failure, possibly ATN, mediastinal mass and neck mass making it impossible to swallow. He had abnormal abdominal lymph nodes with ascites. He had limited hemodialysis. Biopsy of the neck mass showed a lymphoma, and was transfered to [facility] [place] [place] for chemotherapy and treatment. [address] [address] HISTORY AND PHYSICAL Name: ROMMEL KHALIL Sahra Room #: 243-P [facility] IN ..#: [id number] Admission: 06/16/19 ������������������ Attend Phys: Ced Montoya MD Discharge: ������������������ Date of : 34 Report #: [id number] He has a history of paroxysmal atrial fibrillation as well. A history of a mediastinal mass with a long period of stability, that preceeded the January presentation of lymphoma. CURRENT MEDICATIONS: Gabapentin 100 mg in the evening for neuropathy, pantoprazole 40 mg twice daily for GERD, MiraLax powder daily for constipation, Jim powder, vitamin A 10,000 units, vitamin C 1000 mg, zinc 50 mg, lidocaine patch to the hip, metoprolol tartrate 50 mg twice daily, Xarelto 20 mg daily, levothyroxine 175 mcg daily, and Tylenol as needed. He receives flush to his right upper chest Groshong indwelling catheter. ALLERGIES: Eggs cause nausea, he has had hives from INTRAVENOUS IODINATED CONTRAST DYE. REVIEW OF SYSTEMS: He is living at home with his . They receive home health services and he receives a lot of assistance from her. He is not a current drinker, nor a smoker. He reports back pain. OBJECTIVE: GENERAL: The patient recognizes me, he is alert and mildly confused. HEENT: Remarkable for a small mass in his left neck that is residual lymphoma after chemotherapy, and used to be quite a bit larger. The oropharynx mucosa is quite dry. The tongue is dry. LUNGS: Clear. CARDIOVASCULAR: The heart tones are normal and regular. S1 and S2 are normal. ABDOMEN: Soft, nontender, without hepatosplenomegaly or masses. A PEG tube is in good position with a normal-appearing exit site. EXTREMITIES: There is 1-2+ edema in both calves. There is a broad irritation of the buttocks skin, around a central deep 3 x 4 cm decubitus ulcer with several layers of skin involved that is malodorous and draining. There are no focal neurological deficits. LABORATORY DATA: His urinalysis is abnormal and consistent with the urinary tract infection. At the time of dictation, 2 blood cultures are growing Gram-positive cocci. His creatinine is 2.2, which is improved over his most recent [place]'s creatinine of February 15, which was 2.8. His BUN is 24 reflecting dehydration and poor nutrition, compared with 20-25 back in January. Sodium is 133, white blood cells are 4.9 thousand, slightly less than his baseline. Differential shows high monocytes and is otherwise unremarkable. Albumin is low at 2.0, fulfilling criteria for severe malnutrition. Hemoglobin is 8.5, which is at baseline. [address] [address] HISTORY AND PHYSICAL Name: ROMMEL KHALIL Room #: 243-P [facility] IN [facility]#: [id number] Admission: 06/16/19 ������������������ Attend Phys: Ced Montoya MD Discharge: ������������������ Date of : 34 Report #: [id number] ASSESSMENT: 1. Sepsis seems to be clinically apparent, although the nursing report from the Emergency Room indicates he does not meet current criteria. 2. Urinary tract infection. 3. Active blood stream infection with Gram-positive cocci and identification is pending. 4. Recent Clostridium difficile history. 5. History of a large lymphoma with a mass of the left neck extending into the mediastinum and apparently excellent response to 2 rounds of chemotherapy. 6. History of pulmonary emboli. 7. He has a Groshong catheter in his right upper chest. 8. Marked debility. 9. Deep-appearing sacral gluteal fold decubitus ulcer. 10. He appears to have had a good response to his chemotherapy from late spring, early summer, but is not yet back to being nutritionally repleted. 11. Other medical problems as in the history and physical. 12. He has chronic kidney disease that appears stable. PLAN: He is admitted for IV antibiotics for his urinary tract infection and his Gram-positive cocci in his blood stream. Infectious Disease has been consulted for his antibiotics, and they have also started him on low-dose oral vancomycin as a deterrent redeveloping C. diff colitis. He will have a wound care consultation with Dr. Lazar. ��������������������������������������������� ���������������������������������������� By: ��������������������������������������������� [id number] Ced Montoya MD /morena
--- NOTE | ~2019-06-16 | EMS ---
[address] [address] EMS Patient Care Report Name: ROMMEL KHALIL Room #: REG SCOOBY Reese#: [id number] Admission: 06/16/19 ������������������ Attend Phys: Discharge: ������������������ Date of : 34 Report #: [id number] THIS REPORT FOR: //name// Report Transmitted: 06/16/2019 13:50 EMS Care Summary [place], [place]/[facility] Incident [id number] @ 06/16/2019 13:26 Incident Location [address] [place], [place] [id number] Patient ROMMEL KHALIL Male, 84 Years 1935 Patient Address [address] [place], [place] [id number] Patient History None Reported, Patient Allergies No known allergies, Patient Medications None Reported, Chief Complaint Back Pain Disposition Transported No Lights/[place] [facility] Reason Unknown Problem/Person Down Transported To [facility] Narrative Med 41 was dispatched to a sick. Med 41 arrived on scene to be met by pt home health nurse. Nurse advised pt was having back pain for the last several days. and advised that the patients pain had gotten worst in the last few days. Pt also stated that she felt as if the pt was acting listless. Pt was laying [address] [address] EMS Patient Care Report Name: ROMMEL KHALIL Room #: REG SCOOBY Reese#: [id number] Admission: 06/16/19 ������������������ Attend Phys: Discharge: ������������������ Date of : 34 Report #: [id number] in his bed in the living room. Pt was tracking lead tech as he approached. Pt was A&Ox4. Pt advised that he was hurting on his lower back. Pt wished to be transported to [facility]. Pt was moved into the unit and had a baseline set of vitals established. Pt care was transferred to RN at [facility] with a verbal report. Med 41 closed call enroute to [facility]. Initial Vitals @13:45P: 111,R: 20,BP: 164/88,Pain: 8/10,GCS: 15,Glucose: 121,CO: 0,SpO2: 97,Revised Trauma: 12, @13:49P: 110,R: 18,BP: 184/93,Pain: 8/10,GCS: 15,SpO2: 100,Revised Trauma: 12, Assessments @13:36MENTAL:Time Oriented,Person Oriented,Event Oriented,Place Oriented,SKIN:HEENT:Eyes: Left Pupil: 4-mm,Eyes: Right Pupil: 4-mm,LUNG SOUNDS:ABDOMEN:PELVIS//GI:EXTREMITIES:PULSE:Radial: 2+ Normal,NEURO: Impression Back Pain Procedures @13:36ALS AssessmentResponse: UnchangedSucceeded@13:39StretcherResponse: Unchanged Timeline 13:24,Call Received 13:24,Dispatch Notified 13:26,Dispatched 13:30,En Route 13:34,On Scene 13:35,At Patient 13:36,ALS Assessment,Response: UnchangedSucceeded, 13:39,Stretcher,Response: Unchanged 13:44,Depart Scene 13:45,BP: 164/88 M,PULSE: 111,RR: 20 R,SPO2: 97 Ox,ETCO2: ,B,PAIN: 8,GCS: 15, 13:49,BP: 184/93 M,PULSE: 110,RR: 18 R,SPO2: 100 Ox,ETCO2: ,BG: ,PAIN: 8,GCS: 15, 13:54,At Destination 14:12,Call Closed Disclaimer v1.1 Copyright 2019 [employer] This EMS Care Summary contains data elements from the applicable legal record (which may be displayed differently). It is designed to provide pertinent information for the following purposes: continuity of care, clinical quality, and state data reporting. The complete [place] [address] EMS Patient Care Report Name: ROMMEL KHALIL Room #: REG SCOOBY Reese#: [id number] Admission: 06/16/19 ������������������ Attend Phys: Discharge: ������������������ Date of : 34 Report #: [id number] and administrators of the receiving hospital in [employer] Patient Tracker. All data is provided "as is."
[~2019-06-16 13:59] MED LIST changes: +AMOXICILLIN 50500 MG PO; +NEXIUM40 MG PO; +PREDNISONE 5 MG5 M1 PO; +ULORIC40 MG PO; +ZOSYN 3.3753.375 GM IV
[2019-06-16 16:26] LABS: HEMATOCRIT 25.1 % (42.0-52.0); HEMOGLOBIN 8.5 gm/dL (14.0-18.0); MCH 28.9 pg (26.0-34.0); PLATELET COUNT 412 thou/uL (150-400); RBC 2.95 mil/uL (4.50-6.00); RDW 16.1 % (10.5-14.5); WBC 4.9 thou/uL (4.0-11.0)
[2019-06-16 16:27] LABS: URINE BILIRUBIN NEGATIVE (Negative); URINE BLOOD TRACE (Negative); URINE CLARITY CLEAR; URINE COLOR YELLOW; URINE GLUCOSE-RANDOM* NEGATIVE (Negative); URINE KETONES NEGATIVE (Negative); URINE NITRITE-REFLEX NEGATIVE (Negative); URINE PROTEIN (DIPSTICK) TRACE (Negative); URINE SPECIFIC GRAVITY <= 1.005 (1.005-1.035); URINE UROBILINOGEN 0.2 E.U./dl (0.2-1.0)
[2019-06-16 16:28] LABS: URINE LEUKOCYTES-REFLEX 3+ (Negative)
[2019-06-16 16:34] LABS: CALCIUM 8.9 mg/dL (8.5-10.1); CREATININE 2.2 mg/dL (0.7-1.3); POTASSIUM 4.1 mmol/L (3.5-5.1)
[2019-06-16 16:47] LABS: CASTS None Seen /LPF (None Seen); CRYSTALS None Seen /LPF (None Seen); SQUAMOUS None Seen /LPF (0-3); URINE RBC 0-2 Rare /HPF (0-2); URINE WBC-REFLEX >25 Many /HPF (0-5); WBC CLUMPS Few (None Seen)
[2019-06-16 16:50] LABS: ABSOLUTE NEUTROPHILS 2.8 thou/uL (1.4-8.2); TOTAL BILIRUBIN 0.3 mg/dL (<0.1-1.0); TOTAL PROTEIN 7.4 g/dL (6.4-8.2)
[2019-06-16 16:52] LABS: ANISOCYTOSIS 1+
[2019-06-16 18:07] VITALS: BP 169/79
[2019-06-16 18:33] VITALS: BP 163/67
[2019-06-16 19:58] VITALS: BP 153/81
--- NOTE | 2019-06-17 03:53 | NUR ---
PATIENT ARRIVED ON UNIT VIA CART FROM ED. ACCOMPANIED BY ED PERSONEL. PATIENT ALERT AND ORIENTED X4. HAS A WOUND ON SACRUM AND ON INNER L HEEL. IV FLUIDS RUNNING. C/O PAIN BUT BY THE TIME PAIN MED ORDERED PATIENT WAS ASLEEP. SLEPT MOST OF NIGHT.
[2019-06-17 05:25] VITALS: BP 118/45
[2019-06-17 07:10] VITALS: BP 112/56
--- NOTE | 2019-06-17 15:44 | NUR ---
ASSESSMENT-PT LIVES AT HOME WITH HIS WHO IS 2 YRS YOUNGER THAN HE, HIS DTR AND GRANDDTR. PT SAYS HE HAS NOT DRIVEN SINCE HE CAME OUT OF REHAB ABOUT 6 WKS AGO. PT USES A WALKER OR A CANE TO GET AROUND. AND DTR DO THE HOUSEHOLD THINGS. PT IS ON SEVICE WITH [facility] [phone] OSKAR. PT GIVEN SAAD ON ADVANCED DIRECTIVES. FOLLOWING TO ASSIST WITH DC PLANNING. PT COMPLAINING OF LOTS OF PAIN & THIS WAS REPORTED TO THE RN.
[2019-06-17 15:53] LABS: ALBUMIN 1.7 g/dL (3.4-5.0)
[2019-06-17 16:15] VITALS: BP 125/56
--- NOTE | 2019-06-17 18:49 | NUR ---
PATIENT HAS RESTED IN BED THROUGH THE DAY. HE IS CONFUSED MOST OF THE TIME. Q2 TURNS. RESPIRATIONS NON LABORED.. WILL CONT WITH PLAN OF CARE.
[2019-06-17 19:25] VITALS: BP 135/64
--- NOTE | 2019-06-18 01:05 | NUR ---
ASSUMED CARE OF PT @1900. PT A&OX4. Q2TURN. PT HAS A COCCYX WOUND. DRESSING CHANGED. PT IS ON AIR FLOW MATRESS. PT HAS A BLISTER ON LEFT HEEL. HEELS OFFLOADED. PLAN IS TO TAKE PT DOWN FOR MRI OF THE SACRUM TO EVALUATE FOR OESTEOMYLYTIS. PT IS BEDREST. FALL PRC IN PLACE. CALL DONOVAN WITHIN REACH
[2019-06-18 05:04] LABS: HEMATOCRIT 21.9 % (42.0-52.0); HEMOGLOBIN 7.2 gm/dL (14.0-18.0); MCH 28.7 pg (26.0-34.0); MCV 87.1 fL (80.0-100.0); PLATELET COUNT 366 thou/uL (150-400); RBC 2.52 mil/uL (4.50-6.00); RDW 16.1 % (10.5-14.5); WBC 3.6 thou/uL (4.0-11.0)
[2019-06-18 05:30] LABS: ALBUMIN 1.6 g/dL (3.4-5.0); CALCIUM 8.1 mg/dL (8.5-10.1); CREATININE 2.1 mg/dL (0.7-1.3); POTASSIUM 3.9 mmol/L (3.5-5.1); TOTAL BILIRUBIN 0.2 mg/dL (<0.1-1.0); TOTAL PROTEIN 6.3 g/dL (6.4-8.2)
[2019-06-18 05:54] LABS: ABSOLUTE NEUTROPHILS 2.6 thou/uL (1.4-8.2); ANISOCYTOSIS 1+
[2019-06-18 07:36] VITALS: BP 144/71
--- NOTE | 2019-06-18 12:57 | HC ---
[facility] [place] [address] CONSULTATION Name: ROMMEL KHALIL Sahra Room #: 428-P [facility] ..#: [id number] Admission: 06/16/19 ������������������ Attend Phys: Ced Montoya MD Discharge: ������������������ Date of : 34 Report #: [id number] THIS REPORT FOR: //name// CC: Ced Montoya DATE OF SERVICE: 06/17/2019 INFECTIOUS DISEASE CONSULTATION REASON FOR CONSULTATION: I was asked to evaluate concerning bacteremia. HISTORY OF PRESENT ILLNESS: The patient is an 84-year-old with underlying history of thyroid cancer presents with confusion, weakness, fever with painful sacral wound and findings of cystitis and Gram-positive cocci from 2 out of 2 blood cultures. The patient has been undergoing chemotherapy for his thyroid cancer. Recently had a bout of C. difficile colitis diagnosed at [facility]. Currently reports no diarrhea. He has had no back or flank pain. He was fatigued and a poor historian. States he was living at home with his and daughter. There has been no cough or sputum production. Denies any chest pain. Has a feeding tube in place. Denies any abdominal pain. REVIEW OF SYSTEMS: A 10-point review of systems was otherwise negative other than what is described above. ALLERGIES: IODINE, EGGS. MEDICATIONS: As noted on his MAR, which were reviewed. Now on ceftriaxone. PAST MEDICAL HISTORY: Diabetes, PE, hemorrhoidectomy, vitiligo, hypothyroidism, gastroesophageal reflux, hypertension, hyperlipidemia, gout, anemia, obstructive sleep apnea, thyroid cancer, C. difficile colitis. FAMILY HISTORY: Noncontributory. SOCIAL HISTORY: Previous smoker, no significant alcohol intake. PHYSICAL EXAMINATION: VITAL SIGNS: Afebrile, temperature was 99.1 max, pulse 100, blood pressure 125/56. GENERAL: He was lying in bed. He was weak and unable to roll over on his own. He had vitiligo. EXTREMITIES: Sacral wound, which was markedly tender. There was foul odor to the drainage. Could not appreciate any surrounding erythema or fluctuance. Wound did tunnel to the bone. Had a pressure ulcer over the medial aspect of his left heel. No palpable adenopathy. HEENT: Eyes without scleral icterus. Mouth without mucositis. [facility] [address] [place] [address] CONSULTATION Name: ROMMEL KHALIL Room #: 428-P [facility]#: [id number] Admission: 06/16/19 ������������������ Attend Phys: Ced Montoya MD Discharge: ������������������ Date of : 34 Report #: [id number] NECK: Supple. LUNGS: Clear to auscultation. HEART: Regular without murmur, gallop or rub. ABDOMEN: Mildly protuberant. PEG site was without erythema or drainage. No appreciable mass or hepatosplenomegaly. GENITOURINARY: External genitalia without mass or lesion. RECTAL: Not performed. EXTREMITIES: With 1+ lower extremity edema. No clubbing or cyanosis. NEUROLOGIC: Cranial nerves intact. Overall, was generally weak with no other focal weakness findings. Sensation to touch was normal in his upper and lower extremities. PSYCHIATRIC: Mood normal. LABORATORY STUDIES: Sodium 133, potassium 4.1, bicarbonate 22, creatinine 2.2. Liver function tests normal. Hemoglobin 8.5, WBC 4.9, platelet 412,000. Urinalysis positive for wbc's and bacteria. Chest x-ray with basilar atelectasis along with question of a pneumomediastinum. Blood cultures 2 out of 2 showing gram-positive cocci. Culture of the coccyx wound and urine are currently pending. IMPRESSION: An 84-year-old with underlying thyroid cancer, on chemotherapy, recent Clostridium difficile colitis, now presents with confusional state and several issues including cystitis, possible pyelonephritis. Gram-positive cocci bacteremia. Sacral decubitus, which tunnels deep consistent with soft tissue infection. Anemia and acute kidney injury. This in the setting of debilitated state and recent episode of Clostridium difficile colitis. RECOMMENDATIONS: We will continue antibiotic coverage with vancomycin, both IV and p.o. along with meropenem while we await cultures of blood, urine and coccyx wound. We will adjust medications to his renal failure. We will need to follow his creatinine and hemoglobin. Would also consider further evaluation of his mediastinum. Need a repeat chest x-ray or followup CT scan. ��������������������������������������������� <ELECTRONICALLY SIGNED> ���������������������������������������� By: Adis Kessler MD ��������������������������������������������� 06/18/19 1257 1720 0051 Adis Kessler MD /nt
[2019-06-18 15:34] VITALS: BP 113/46
--- NOTE | 2019-06-18 20:15 | NUR ---
ASSUMD CARE OF PATIENT AT 0715, PATIENT ALERT AND ORIENTED, C/O SOME BACL DISCOMFORT, BUT REFUSED PAIN MEDS THIS SHIFT. PATIENT BEDREST, PHYSICAL THERAPY WORKED WITH THE PATIENT AT BEDSIDE, PATIENT VERY WEAK, ASSISTED WITH [facility]. PATIENT WENT ON CART TO HAVE MRI OF COCCYX AREA. WOUND CARE DOEN TO COCCYX AREA AND LEFT HEEL. PATIENT HAS RIGHT CHEST MIDLINE IN PLACE WITH NS AT 100CC/HR AND RECEIVED IV ANTIBIOTIC X 3 THIS SHIFT. SPEECH EVALUATED THE PATIENT FOR SWALLOWINT, OK FOR REGULAR DIET. PATIENT REPOSITIONED THROUGHOUT THE SHIFT, AIR LOSS MATTRESS. BLOOD SUGAR MONITORING ORDERED, PATIENT REFUSED MAGIC CUP SUPPLEMENTS. PEG TUBE TO ABD. NOT IN USE, DRESSING IN PLACE, WILL CONTINUE TO MONITOR.
[2019-06-18 20:54] VITALS: BP 124/78
[2019-06-18 20:59] LABS: HEMATOCRIT 22.2 % (42.0-52.0); HEMOGLOBIN 7.5 gm/dL (14.0-18.0)
--- NOTE | 2019-06-19 02:35 | NUR ---
PT NOTES ASSUMED CARE OF PT @1900. PT A&OX4. PT HAS A FLAT AFFECT AND DOESN'T WANT TO BE BORDERED. DRESSING ON COCCYX WOUND CLEAN, DRY AND INTACT. PT DECLINED Q2 REPOSITIONING, DECLINES PO VANCO. PT HAD A TEMP OF 101, TYLENOL WAS GIVEN AND TEMP CAME DOWN TO 99.5. H&H WAS 7.5. PLAN IS TO TRANSFUSE IF <7.
[2019-06-19 04:15] VITALS: BP 135/52
[2019-06-19 06:17] LABS: % SATURATION 12 % (20-39); IRON 14 ug/dL (65-175); TIBC 116 ug/dL (250-450)
[2019-06-19 06:44] LABS: FOLIC ACID 4.3 ng/mL (8.6-58.9)
[2019-06-19 07:21] VITALS: BP 136/53
--- NOTE | 2019-06-19 09:45 | NUR ---
RECEIVED PT CARE APPROX 0715. A/O/FLAT. DENIES PAIN. NO NOTED SOA. NO NV. MEDS GIVEN ORDERED TOLERATED WELL. BATH GIVEN BY WASHATERIA ATTENDANT TODAY. DRESSING CHANGED ORDERED. PT RESTING IN BED AT THIS TIME. WILL CONT. TO MONITOR.
[2019-06-19 16:29] VITALS: BP 134/60
--- NOTE | 2019-06-19 16:37 | NUR ---
NO CHANGE SINCE AM ASSESMENT. PT REFUSING HIS SUPPLEMENTS FOR BOTH BREAKFAST AND LUNCH. REPOSITIONED. DRESSING REMAINED CDI. WILL CONT. TO MONITOR.
[2019-06-19 19:15] VITALS: BP 152/71
--- NOTE | 2019-06-19 21:50 | NUR ---
ASSESSMENT COMPLETED. PT REPOSITIONED. DENIES PAIN. PT RELUCTANTLY AGREES TO BE REPOSITIONED. JUST DOES NOT LKE TO BE BOTHERED. SWALLOWED HS MEDS OKAY. SACCRAL WOUND DRS CHANGE DONE.BLE ELEVATED. AFEBRILE.USES URINAL. HE REMAINS ALERT AND ORIENTED. ON CONTINUOUS IV FLUIDS.NO FURTHER CONCERNS AT THIS TIME.CALL LIGHT WITHIN REACH.
[2019-06-20 05:10] VITALS: BP 114/60
[2019-06-20 08:10] VITALS: BP 132/55
--- NOTE | 2019-06-20 08:31 | HC ---
[facility] [place] [place] [address] CONSULTATION Name: ROMMEL KHALIL Sahra Room #: 428-P [facility].#: [id number] Admission: 06/16/19 ������������������ Attend Phys: Ced Montoya MD Discharge: ������������������ Date of : 34 Report #: [id number] THIS REPORT FOR: //name// CC: Ced Montoya DATE OF SERVICE: 06/17/2019 WOUND CARE CONSULTATION CHIEF COMPLAINT: Sacral ulcer and left heel ulcer. HISTORY OF PRESENT ILLNESS: This is an 84-year-old white male with a history of thyroid cancer, who was admitted for confusion, weakness and a sacral decubitus ulcer and bacteremia. We have been asked to follow the patient for the sacral ulcer. The patient himself is a very poor historian, is unable to give much history, but per records, the patient had recently been in the hospital at [facility] for C. difficile colitis and possibly developed the ulceration at that time. The patient states he is unsure of how his left heel ulcer developed, he did not even know it was there. The patient also has been undergoing chemotherapy for his thyroid cancer. The patient does complain of pain, mild to moderate in his sacral ulcer, which is throbbing in nature, worse with lying on it, better when he lies on his side. Denies radiation. The patient denies any pain in the left heel ulcer. Nurses state there are no other associated wounds that they are concerned about. PAST MEDICAL HISTORY: Significant for diabetes, vitiligo, hypothyroidism, gastroesophageal reflux disease, hypertension, history of pulmonary embolus, hyperlipidemia, gout, anemia, sleep apnea, thyroid cancer and recent C. difficile colitis. CURRENT MEDICATIONS: Multiple, I reviewed the patient's medication list. DRUG ALLERGIES: IODINE AND EGGS. SOCIAL HISTORY: The patient has a remote history of smoking. Does not drink alcohol. FAMILY HISTORY: Not pertinent to current medical condition. REVIEW OF SYSTEMS: CONSTITUTIONAL: The patient denies fevers or chills. NEUROLOGIC: The patient complains of overall generalized weakness, but no isolated weakness. No headache. EYES: No complaints. ENT: No complaints. CARDIAC: The patient denies chest pain, palpitations or peripheral edema. [address] [address] CONSULTATION Name: ROMMEL KHALIL Room #: 428-P [facility]#: [id number] Admission: 06/16/19 ������������������ Attend Phys: Ced Montoya MD Discharge: ������������������ Date of : 34 Report #: [id number] RESPIRATORY: The patient denies shortness of breath, cough or wheezes. GASTROINTESTINAL: The patient denies nausea, vomiting or abdominal pain, but has decreased appetite with significant weight loss over the past several weeks. GENITOURINARY: The patient denies urgency or frequency. MUSCULOSKELETAL: No complaints. SKIN: The patient has a decubitus ulcer in the sacrococcygeal region as well as left heel. PHYSICAL EXAMINATION: VITAL SIGNS: Temperature 36.8, pulse 112, respirations 18, BP 135/52. GENERAL: This is an alert and oriented x2, person and place, but not time, chronically ill-appearing black male who is in [id number] distress secondary to symptoms. HEENT: Normocephalic, atraumatic. Mucous membranes are dry. Pupils are round. Sclerae white. NECK: Supple, nontender. LUNGS: Clear. HEART: Tachycardic. ABDOMEN: Soft, nontender. EXTREMITIES: The patient moves all extremities without difficulty. Evaluation of sacrococcygeal region reveals an open ulceration, which probes to bone over the sacrococcygeal region. There is significant amount of foul smelling drainage which is brownish in nature. Periwound is somewhat macerated. It is tender to palpation. Evaluation of left heel reveals a deep tissue injury to left heel with a hemorrhagic blister that is intact without signs of infection. Distal pulses are 1+. No other associated ulcerations are noted on the heels, foot or toes. NEUROLOGIC: Cranial nerves 2-12 grossly intact. Motor and sensory grossly intact. LABORATORY VALUES: White count 4.9, hemoglobin 8.5. Sed rate 135. Albumin 1.6. IMPRESSION: 1. 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 2. Left heel deep tissue injury. 3. Bacteremia, most likely secondary to sacrococcygeal decubitus ulcer. 4. Recent history of Clostridium difficile colitis. 5. Severe protein-calorie malnutrition, albumin 1.6. 6. Generalized debility. PLAN: We will order an MRI of the pelvis to evaluate for sacrococcygeal osteomyelitis. We will order General Surgery consult once the MRI has been returned. The patient will need some bony debridement if osteomyelitis has occurred. At minimal, he will need the ulcer to be debrided. We will put the [address] [place] [address] CONSULTATION Name: ROMMEL KHALIL Room #: 428-P [facility] M.R.#: [id number] Admission: 06/16/19 ������������������ Attend Phys: Ced Montoya MD Discharge: ������������������ Date of : 34 Report #: [id number] patient on low air loss mattress and have him turn every 2 hours. We will put foam dressing over the left heel decubitus ulcer and change this once daily. We will have the patient in heel protection boots at all times. We will check arterial Dopplers on bilateral lower extremities to evaluate for arterial flow and healing. We will make sure we maximize the patient's oral protein supplementation for healing. Once the patient is able, we will consult Physical therapy for strengthening. We will continue all other current medications. We will continue to follow the patient. ��������������������������������������������� <ELECTRONICALLY SIGNED> ���������������������������������������� By: Earle Lazar MD ��������������������������������������������� 06/20/19 0831 1422 2329 Earle Lazar MD /nt
--- NOTE | 2019-06-20 09:53 | NUR ---
Pt not eating enough to meet nutrition needs for stage IV wound. Refuses all oral supplement drinks. Recommend use PEG for supplemental feedings-suggest 2cal HN, 60ml/hr x 8 hr nocturnal.
[2019-06-20 16:45] VITALS: BP 177/67
--- NOTE | 2019-06-20 19:27 | NUR ---
ASSESMENT COMPLETED. VSS. A/O. DENIES PAIN. NO NOTED SOA. NO NV. PT RESTING IN BED APPEARS COMFORTABLE. PT RESTING IN BED APPEARS COMFORTABLE. REPOSITIONED. DRESSING CHANGED ORDERED. WILL CONT. TO MONITOR.
[2019-06-20 19:54] VITALS: BP 151/68
--- NOTE | 2019-06-21 02:24 | NUR ---
ASSUMED PT CARE 1900. PT ALERT AND ORIENTED. REASSESSMENT COMPLETE. VSS. DENIES PAIN, DENIES N/V. REFUSING TURNS. DRESSING TO SACRUM DONE. TUBE FEEDING STARTED AT 0015 AT 30ML/ HOUR, RESIDUAL CHECK AND INCREASED RATE AT 0215 TO 40ML/HOUR, TOLERATING FEEDING. WORKING TOWARD POC. CALL LIGHT ADN PERSONAL BELONINGS WITHIN REACH, WILL CONTINUE POC UNTIL EOS.
[2019-06-21 05:23] VITALS: BP 117/48
[2019-06-21 05:52] LABS: HEMATOCRIT 22.3 % (42.0-52.0); HEMOGLOBIN 7.4 gm/dL (14.0-18.0); MCH 28.8 pg (26.0-34.0); MCHC 33.2 g/dL (28.0-37.0); MCV 86.5 fL (80.0-100.0); RBC 2.57 mil/uL (4.50-6.00); RDW 16.2 % (10.5-14.5); WBC 4.1 thou/uL (4.0-11.0)
[2019-06-21 05:59] LABS: POTASSIUM 3.8 mmol/L (3.5-5.1)
[2019-06-21 07:05] VITALS: BP 132/56
[2019-06-21 12:26] VITALS: BP 125/73
--- NOTE | 2019-06-21 15:30 | NUR ---
ASSUMED CARE OF PATIENT AT 0715, PATIENT ALERT AND ORIENTED X 4. PATIENT C/O BACK PAIN, HYDROCODONE 1 TABLET GIVEN WITH PARTIAL RELIEF, PATIENT HAS CHRONIC BACK PAIN. PATIENT WORKED WITH OT, AND C/O SOME SOB, PATIENT ASSISTED WITH HIS BATHM AND ASSISTED TO THE CHAIR. VSS THIS AM SATS 94% ON ROOM AIR. PHYSICAL THERAPY WORKED WITH THE PATIENT AND HEART RATE ELEVATED TO 160'S AND DOWN TO 140'S AFTER IN BED, [ATIENT C/O SOB WITH NOTED LABORED BREATHING, O2 APPLIED. NURSE MANAGER RESORT/AZALEA ON THE UNIT, PORTABLE TELE MONITOR APPLIED, HEARTRATE 120'S. THIS RN NOTIFED DR. MANSFIELD, RECEIVED ORDERS FOR LASIX 40 MG IV X 1 STAT, 12 LEAD EKG, WHICH WAS DONE AND SHOWED ST. D/C IV FLUIDS, TROPONIN LAB, TRANSFER TO CCU/TELE. CT SCAN OF CHEST/ABD/PELVIS W/O CONTRAST. ECHO COMPLETE. LAST VS 154/72, HR 125 RESP 24. REPORT GIVEN TO TOBY BUCHANAN/RN AT BEDSIDE, THIS RN ASSISTED WITH TRANSFERRING PATIENT TO [facility]. ARRIVED TO ROOM PRIOR TO TRANSFER. PATIENT WAS ABLE TO ANSWER QUESTIONS ASKED. WILL CONTINUE TO MONITOR.
--- NOTE | 2019-06-21 16:20 | 2DMMODE ---
[facility] [address] [place] [address] 2 D/M-MODE ECHOCARDIOGRAM Name: ROMMEL KHALIL Room #: 202-P [facility] IN [facility]#: [id number] ������������� Admission: 06/16/19 ������������� Attend Phys: Ced Montoya, Discharge: ��� ������������� ��� Date of : 33 Date of Service: 06/21/19 1620 �� Report #: [id number] �������� ��������������������������������������������[id number] THIS REPORT FOR: //name// APPROVED REPORT Study performed: 06/21/2019 14:48:58 EXAM: Comprehensive 2D, Doppler, and color-flow Echocardiogram Patient Location: Bedside Room #: 202 Status: routine BSA: 1.95 HR: 125 bpm BP: 125/73 mmHg Rhythm: Tachycardia Other Information Study Quality: Adequate Indications Dyspnea Hx: Afib, DM, HTN, HLP. 2D Dimensions RVDd: 32.67 mm IVSd: 11.12 (7-11mm) LVOT Diam: 19.71 (18-24mm) LVDd: 40.22 mm PWd: 10.10 (7-11mm) LVDs: 29.70 (25-40mm) Aortic Root: 28.17 mm Volumes Left Atrial Volume (Systole) Single Plane 4CH: 32.04 mL Single Plane 2CH: 44.01 mL LA ESV Index: 21.00 mL/m2 Aortic Valve AoV Peak Manny.: 2.00 m/s AO Peak Gr.: 16.07 mmHg LVOT Max P.38 mmHg LVOT Max V: 1.45 m/s DEANDRA Vmax: 2.20 cm2 Pulmonary Valve PV Peak Manny.: 1.06 m/s PV Peak Gr.: 4.47 mmHg [facility] [address] [address] 2 D/M-MODE ECHOCARDIOGRAM Name: ROMMEL KHALIL Room #: 202-P [facility]M IN [facility]#: [id number] ������������� Admission: 06/16/19 ������������� Attend Phys: Ced Montoya, Discharge: ��� ������������� ��� Date of : 34 Date of Service: 06/21/19 1620 �� Report #: [id number] �������� ��������������������������������������������[id number] Tricuspid Valve TR Peak Manny.: 2.84 m/s RAP Estimate: 5.00 mmHg TR Peak Gr.: 32.34 mmHg PA Pressure: 37.00 mmHg Left Ventricle The left ventricle is normal size. There is normal LV segmental wall motion. Mild basal septal hypertrophy is present. Left ventricular systolic function is normal. LVEF is 55-60%. This study is not technically sufficient to allow evaluation of the LV diastolic function due to tachycardia. Right Ventricle The right ventricle is normal size. The right ventricular systolic function is normal. Atria The left atrium size is normal. The right atrium size is normal. Aortic Valve The aortic valve is normal in structure. No aortic regurgitation is present. There is no aortic valvular stenosis. Mitral Valve The mitral valve is normal in structure. There is no mitral valve regurgitation noted. No evidence of mitral valve stenosis. Tricuspid Valve The tricuspid valve is normal in structure. Trace to mild tricuspid regurgitation. Estimated PAP is 35-40mmHg. Pulmonic Valve Pulmonic valve is not well visualized. Great Vessels The aortic root is normal in size. IVC is normal in size and collapses >50% with inspiration. Pericardium There is no pericardial effusion. Large left pleural effusion noted. <Conclusion> The left ventricle is normal size. LVEF is 55-60%. [facility] [address] [place] [address] 2 D/M-MODE ECHOCARDIOGRAM Name: ROMMEL KHALIL Room #: 202-P [facility] IN [facility].#: [id number] ������������� Admission: 06/16/19 ������������� Attend Phys: Ced Montoya, Discharge: ��� ������������� ��� Date of : 34 Date of Service: 06/21/191619 �� Report #: [id number] �������� ��������������������������������������������[id number] The right ventricle is normal size. The right atrium size is normal. The aortic valve is normal in structure. The mitral valve is normal in structure. The tricuspid valve is normal in structure. Trace to mild tricuspid regurgitation. Estimated PAP is 35-40mmHg. Pulmonic valve is not well visualized. There is no pericardial effusion. Large left pleural effusion noted. ��������������������������������������������� <ELECTRONICALLY SIGNED> ���������������������������������������� By: Raymond Rodriguez MD ��������������������������������������������� 06/21/19 1620 19 1620 Raymond Rodriguez MD /INF
[2019-06-21 16:25] VITALS: BP 126/76
--- NOTE | 2019-06-21 18:59 | NUR ---
RECEIVED PT FROM 4E, VSS TELEM SHOWING ST RATE 100-130, LUNGS DIMINISHED, O2 SAT 2L IS 100% PT DIEURESING WELL WITH IV LASIX UO 1200. APPETITE GOOD TODAY ATE 50% TRAYS AND 2 MAGIV CUPS. WILL CONTINUE TO MONITER AND CARE FOR PTPER PLAN OF CARE
[2019-06-21 19:56] VITALS: BP 130/86
[2019-06-22 00:15] VITALS: BP 122/65
[2019-06-22 04:45] VITALS: BP 125/62
[2019-06-22 06:44] LABS: HEMATOCRIT 22.1 % (42.0-52.0); HEMOGLOBIN 7.5 gm/dL (14.0-18.0); MCH 29.2 pg (26.0-34.0); MCHC 33.9 g/dL (28.0-37.0); MCV 86.3 fL (80.0-100.0); RBC 2.56 mil/uL (4.50-6.00); RDW 16.2 % (10.5-14.5); WBC 4.1 thou/uL (4.0-11.0)
[2019-06-22 07:02] LABS: ALBUMIN 1.5 g/dL (3.4-5.0); CALCIUM 8.2 mg/dL (8.5-10.1); CREATININE 2.2 mg/dL (0.7-1.3); POTASSIUM 3.7 mmol/L (3.5-5.1); TOTAL BILIRUBIN 0.2 mg/dL (<0.1-1.0); TOTAL PROTEIN 6.3 g/dL (6.4-8.2)
--- NOTE | 2019-06-22 07:29 | NUR ---
pt given tylenol for c/o back pain, pt refusing q2 hour turns was able to turn a few times, vss, will con't to monitor per ppoc.
[2019-06-22 07:36] VITALS: BP 115/51
--- NOTE | 2019-06-22 11:23 | NUR ---
ASSUMED CARE AT 0700, SHIFT ASSESSMENT DONE, MEDS GIVEN, VSS. REPORTED PAIN, PRN PAIN MEDS GIVEN. WORKED WITH PHYSICAL THERAPHY, WAS TACHYCARDIC, UPTO 120s, GOT A BED BATH. REMAINS ON 2L NC, WOUND CARE DONE PER ORDER. WILL CONTINUE TO ASSESS AND ASSIST WITH ADLs NEEDED.
[2019-06-22 11:32] VITALS: BP 146/86
[2019-06-22 16:00] VITALS: BP 148/88
--- NOTE | 2019-06-22 18:57 | NUR ---
IV LASIX ADMINSITERED PER DR MANSFIELD, BLADDER SCAN DONEM 84 MLS WAS SCANNED. REPORT GIVEN TO NIGHT NURSE
[2019-06-22 19:28] VITALS: BP 122/73
[2019-06-23 05:04] VITALS: BP 141/76
[2019-06-23 07:05] LABS: CALCIUM 8.7 mg/dL (8.5-10.1); CREATININE 2.3 mg/dL (0.7-1.3); POTASSIUM 3.8 mmol/L (3.5-5.1)
[2019-06-23 07:07] LABS: HEMATOCRIT 22.7 % (42.0-52.0); HEMOGLOBIN 7.5 gm/dL (14.0-18.0); MCH 28.8 pg (26.0-34.0); MCHC 33.3 g/dL (28.0-37.0); MCV 86.7 fL (80.0-100.0); RBC 2.61 mil/uL (4.50-6.00); RDW 16.7 % (10.5-14.5)
[2019-06-23 07:10] VITALS: BP 138/74
--- NOTE | 2019-06-23 07:47 | NUR ---
pt resting quietly in room, turning and repositioning as tolerated by pt, prn tylenol given for left sided pain, voiding per urinal, npo since mnoc for debriedment today, report given to next shift to con't with ppoc.
--- NOTE | 2019-06-23 08:23 | EKG ---
[address] [employer] [place] [address] ELECTROCARDIOGRAM REPORT Name: ROMMEL KHALIL Room #: 202-P ADM IN M.R.#: [id number] ������������������ Admission: 06/16/19 ������������������ Attend Phys: Ced Montoya MD Discharge: ������������������ Date of : 34 Report #: [id number] ����������������������������������������������������������������� [id number] THIS REPORT FOR: //name// [facility] Test Date: 2019-06-21 Test Time: 11:51:23 Pat Name: ROMMEL KHALIL Department: Room: 202 Gender: M Core Loader: Jessica MAHARAJ : 1935 Requested By: Ced Montoya Order Number: [id number] MD: Alireza Williamson Measurements Intervals [place] Rate: 124 P: 48 SD: 121 QRS: -42 QRSD: 99 T: 84 QT: 318 QTc: 457 Interpretive Statements Sinus tachycardia Left axis deviation Poor R wave progression Nonspecific T wave abnormality Compared to ECG 02/06/2019 07:48:45 No significant change was found Electronically Signed On 06-23-2019 8:22:46 CDT by Alireza Williamson [email or web address] ��������������������������������������������� <ELECTRONICALLY SIGNED> ���������������������������������������� By: Alireza Williamson MD, [facility] ��������������������������������������������� 06/23/19821 115 50 Alireza Williamson MD, [facility] /EPI
[2019-06-23 13:11] VITALS: BP 143/79
[2019-06-23 15:15] VITALS: BP 143/77
--- NOTE | 2019-06-23 15:50 | NUR ---
Pt has I/D of wound and diverting ostomy this morning. Dc planning visit provided at bedside this afternoon to discuss possible ltac referral. LTAC listing provided and level of care needs, acute hospital days, and options discussed. Both are interested in ltac level of care due to pt's wound care, iv atb, and therapy needs. The pt has 19 acute days and 60 life time reserve days. Ashley liason contacted and she will be here around 1130 tomorrow to visit with them. to tour in the afternoon. Dc inventory planner to fax referral for their review. Ins auth will be needed for ltac admission. Case discussed with the care team. Ashley is in network with the pt's ins plan and is the most convient for his as she does not like to drive on the freeway.
--- NOTE | 2019-06-23 19:28 | NUR ---
ASSUMED CARE OF PATIENT AT 0700. PATIENT TO SURGERY AT 0800 FOR COLOSTOMY AND EXC. AND DEBRIDEMENT OF SACROCOCCYGEAL ULCER. PATIENT RETURNED TO AT 1300. PATIENT'S AT THE BEDSIDE. PATIENT ALERT AND ORIENTED X 4 UPON RETURN TO . PATIENT GIVEN HYDROCODONE FOR COCCYX PAIN AND TOLERATED WELL. IV ABX GIVEN. BLOOD SUGARS CHECKED AC&HS. PATIENT REFUSED PRAFO BOOTS AND Q2 TURNS. PATIENT TO CONTINUE WITH POC.
[2019-06-23 20:14] VITALS: BP 129/61
[2019-06-24 00:15] VITALS: BP 107/54
[2019-06-24 04:25] VITALS: BP 111/46
--- NOTE | 2019-06-24 05:28 | NUR ---
ASSESSMENT DOCUMENTED.PT RESTING IN BED AT THIS TIME IN NO ACUTE DISTRESS.A/OX4.VSS.TACHY ON MONITOR WITH HRS IN 120S-130S.ON O2 AT 2LITERS PNC,SATS ADEQUATE.PAIN MEDS GIVEN FOR BACK/LEGS/WOUND PAIN,WITH RELIEF.PT REFUSING Q2H TURNS.REFUSED PRAFO BOOTS WELL.ELODIA HEELS ELEVATED W/PILLOWS.ABT PER ORDERS.ON TUBE FEEDING AT 50 ML/H FOR 10 HRS PER ORDERS.COLOSTOMY BAG WITH SEROSANGOUIS DRAINAGE,NO BMS.TOLERATING CLEAR LIQUIDS.PT IMPROVING SLOWLY.WILL CONT TO MONITOR PER POC.
[2019-06-24 06:05] LABS: HEMATOCRIT 20.9 % (42.0-52.0)
[2019-06-24 06:29] LABS: ALBUMIN 1.5 g/dL (3.4-5.0); CALCIUM 7.9 mg/dL (8.5-10.1); CREATININE 2.7 mg/dL (0.7-1.3); POTASSIUM 4.1 mmol/L (3.5-5.1); TOTAL BILIRUBIN 0.2 mg/dL (<0.1-1.0); TOTAL PROTEIN 6.3 g/dL (6.4-8.2)
[2019-06-24 07:30] VITALS: BP 108/51
--- NOTE | 2019-06-24 09:39 | NUR ---
FAXED REFERRAL TO [facility] CONFIRMED WITH LEONARDO IN ADM SHE RECEIVED REFERRAL. DCP TO FOLLOW.
[2019-06-24 11:40] VITALS: BP 123/69
[2019-06-24 16:05] VITALS: BP 126/60
--- NOTE | 2019-06-24 17:13 | NUR ---
FOLLOWING FOR DC PLAMNING. REFERRAL TO [facility] FOR LTAC AUTH AND DISCUSSED [facility] CONTACT GEMMA RUIZ TODAY TO SUPPORT LTAC DC PLAN AND LIKELY READINESS OF 06/28/19. CREATININE ELEVATED AT PRESENT. SURGERY HAS SIGNED OFF AND DISCUSSED WITH WOUND CARE DR. ROB AGREES WITH PLAN FOR LTAC IF [facility] AUTH CAN BE OBTAINED.
[2019-06-24 19:55] VITALS: BP 131/60; BP 131/690
[2019-06-25 04:20] VITALS: BP 124/46
--- NOTE | 2019-06-25 04:27 | NUR ---
RECEIVED PT'S CARE AT 1910; PT. ON BED AWAKER & ALERT; DAUGHTER AT THE BED SIDE; DURING ASSESSMENT PT. ALERT TO DAY BUT NOT TO MONTH; ALERT TO NAME & SITUATION; C/O BACK PAIN; ASKED IF NEED PAIN MEDICATION; AGRESS; BEFORE GIVEN IT; PT'S REFUSED IT; HS MEDICATION GIVEN; TUBE FEEDING STARTED AT 1999; EDUCATED ABOUT TURNING FROM SIDE TO SIDE Q2H; NO ANSWER BACK; REFUSED BOOTS; PRN PAIN MEDICATION GIVEN CLOSE TO MIDNIGHT; PAIN RE-ASSESSMENT PT. SLEEPING; TURNED Q2H; BOOTS APPLIED AT 0400; C/O PAIN WHEN TURNED ON BED; ABLE TO REST THROUGH THE NIGTH WITH EYES CLOSED; MONITORING; ASSESSMENT CHARGED; FOLLOWING POC; WILL PASS ON REPORT.
[2019-06-25 06:19] LABS: ALBUMIN 2.1 g/dL (3.4-5.0); CALCIUM 8.4 mg/dL (8.5-10.1); CREATININE 2.9 mg/dL (0.7-1.3); PHOSPHORUS 2.3 mg/dL (2.5-4.9); POTASSIUM 3.8 mmol/L (3.5-5.1)
[2019-06-25 07:05] VITALS: BP 120/56
--- NOTE | 2019-06-25 09:47 | O ---
[facility] [place] [address] OPERATIVE REPORT Name: ROMMEL KHALIL Room #: 202-P [facility] IN M.R.#: [id number] Admission: 06/16/19 ������������������ Attend Phys: Ced Montoya MD Discharge: ������������������ Date of : 34 Report #: [id number] THIS REPORT FOR: //name// CC: Adis Lazar MD DATE OF SERVICE: 06/23/2019 SURGEON: Roberto Arteaga MD CARPORT ERECTOR: Alejandra Nesbitt. PREOPERATIVE DIAGNOSES: 1. Stage 4 sacrococcygeal decubitus ulcer. 2. Malnutrition. POSTOPERATIVE DIAGNOSES: 1. Stage 4 sacrococcygeal decubitus ulcer. 2. Malnutrition. PROCEDURE: 1. Diverting loop transverse colostomy. 2. Excisional and ultrasonic debridement of stage 4 sacrococcygeal decubitus ulcer including skin, subcutaneous tissue, muscle and bone (starting measurement 4.5 cm2; ending measurement 32 cm2) 3. Application of skin substitute (Interfyl-32 cm2). ANESTHESIA: General endotracheal anesthesia and local anesthetic. ESTIMATED BLOOD LOSS: 25 mL. SPECIMEN: Sacrococcygeal skin, subcutaneous tissue, muscle and bone. COMPLICATIONS: None appreciated. INDICATIONS FOR PROCEDURE: This is an 84-year-old male patient of Dr. Ced Montoya, who was referred by Dr. Earle Lazar for potential debridement of a stage 4 sacrococcygeal decubitus ulcer. The patient was seen in the [facility] with lower back pain. The patient has history of Clostridium difficile colitis and developed a chronic wound while ill and in bed from that illness. While receiving home health for approximately 2 weeks at home after being transferred to a rehab facility from the hospital, the patient was brought to the Emergency Room for infection of his wound. He denies fever or chills. He presents now for excisional and ultrasonic debridement of his wound. Discussion was held at length with the patient and his who are agreeable to [address] [address] OPERATIVE REPORT Name: ROMMEL KHALIL Sahra Room #: 202-P [facility] IN [facility].#: [id number] Admission: 06/16/19 ������������������ Attend Phys: Ced Montoya MD Discharge: ������������������ Date of : 34 Report #: [id number] proceeding with a colostomy to help optimize the healing environment and to help prevent future decubitus ulcer issues. Debridement and colostomy are indicated. OPERATIVE FINDINGS: The sacrococcygeal wound measured 3 cm long x 1.5 cm wide prior to excisional debridement. After performing the excision, the wound was 8 cm long x 4 cm wide x 2 cm deep. There was bony involvement with bone palpable at the base of the wound. Purulence was encountered as well. Cultures were taken from the pus as well as from the bone marrow to be sent for aerobes, anaerobes and fungus. The transverse colostomy was palpably patent beyond the fascial level after fully maturing the stoma. The colonic mucosa appeared viable throughout. DESCRIPTION OF PROCEDURE IN DETAIL: After the risks, benefits, and expectations of the operation were discussed with the patient and his , informed consent was obtained. The patient was identified in the preoperative holding area. He was given IV antibiotics as documented in the chart. He was then taken to the operating room and he was placed in the supine position. SCDs were placed on the patient's bilateral lower extremities and pneumatic compression was initiated. The patient was then given IV sedation and he was intubated without incident. He was placed in the prone position on the operating room table. The patient's sacrococcygeal area was then prepped and draped in the standard sterile fashion. A time-out was performed to identify the correct patient and procedure. Local anesthetic was infiltrated into the skin and subcutaneous tissue in the area of the planned incision. A sharp #10 blade scalpel was used to make an incision through the skin and subcutaneous tissue. Electrocautery was used to dissect through the subcutaneous tissue down to the sacrococcygeal bony area. Prior to encountering the bone, an abscess cavity was encountered and cultures were taken to be sent for aerobes, anaerobes and fungus. Directly beneath this was the outer table of the sacrococcygeal area. This was excised with rongeur and the jagged edges of the bone were smoothed out. Cultures were taken from the bone marrow. Bleeding points were made hemostatic with electrocautery. The wound was then mechanically debrided with the Misonix ultrasonic debridement device. The Misonix head was used to debride the entire surface area of the wound including the exposed bone marrow. Bleeding points were again made hemostatic with electrocautery. The wound was irrigated and appeared to be hemostatic. Local anesthetic was infiltrated into the deeper tissue. Interfyl 1.5 mL was prepared on the backtable, then topically applied to the wound. Adaptic and 4 x 4s were then placed over the wound. The wound was further dressed with an ABD pad and tape. The patient was returned to the supine position. Creation of the diverting loop transverse colostomy was undertaken next. An [facility] [address] [place] [address] OPERATIVE REPORT Name: ROMMEL KHALIL Room #: 202-P [facility] IN [facility]#: [id number] Admission: 06/16/19 ������������������ Attend Phys: Ced Montoya MD Discharge: ������������������ Date of : 34 Report #: [id number] appropriate area was chosen where the transverse colon was felt to be present. To the right of midline, a circular skin incision was made with #10 blade scalpel. Dissection was carried through the subcutaneous tissue down to the right anterior rectus sheath fascia. A cruciate incision was made in the fascia. The longitudinally oriented rectus abdominis muscle was then divided and it was then split along the length of its fibers and bleeding points were made hemostatic. The underlying posterior rectus sheath fascia was opened with electrocautery again using a cruciate incision. The underlying peritoneum was opened sharply with Metzenbaum scissors. The abdominal cavity was then entered. The colon was present directly beneath this. The loop of colon was delivered through the opening and the antimesenteric taenia was identified. The colon was oriented transversely from the 10 o'clock position down to the 4 o'clock position. A longitudinal opening was created with electrocautery. The stoma was then matured with Lisa-type interrupted 3-0 Vicryl sutures at the 12, 3, 6, and 9 o'clock positions. Short runs of the 3-0 Vicryl were then used to mature the remainder of the colostomy with full thickness bites of the colon. The stoma was palpably patent beyond the fascial level for both the afferent and efferent limbs. The two-piece colostomy appliance was then placed. The patient tolerated the procedures well. He was awakened, extubated, and taken to the recovery room in stable condition with no apparent intraoperative complications. ��������������������������������������������� <ELECTRONICALLY SIGNED> ���������������������������������������� By: Roberto Arteaga MD, FACS ��������������������������������������������� 06/25/19 0947 1152 1244 Roberto Arteaga MD, FACS /nt
[2019-06-25 11:30] VITALS: BP 101/69
[2019-06-25 11:40] VITALS: BP 119/71
[2019-06-25 15:55] VITALS: BP 126/75
--- NOTE | 2019-06-25 17:14 | NUR ---
GENERALLY SOMNOLENT. ANSWERS QUESTIONS APPROPRIATELY, MAKES NEEDS KNOWN. INCONTINENT OF URINE ONCE; USUALLY USES URINAL. ARRIVES AT BEDSIDE. ORAL INTAKE ENCOURAGED. PT, OT, ST ON THE CASE. PEG TUBE PATENT. ST PER TELE. LARGE SACRAL WOUND DRESSED WITH 1/2 DAKINS AND ABD. TURNED Q2H. FREQUENT CHECKS; WILL CONTINUE TO MONITOR.
[2019-06-25 20:40] VITALS: BP 138/72
[2019-06-26] VITALS (45 sets, daily range): BP systolic 108–141; BP diastolic 48–76
[2019-06-26 02:05] LABS: BE(vivo) -1.8 mmol/L (-2 to +3); PCO2 32.9 mmHg (35.0-45.0); PO2 58.2 mmHg (80.0-100.0); pH 7.444 (7.360-7.450); sO2 91.6 % (92.0-98.0)
[2019-06-26 02:37] LABS: MCH 28.8 pg (26.0-34.0); RDW 16.8 % (10.5-14.5)
[2019-06-26 02:39] LABS: MCHC 32.9 g/dL (28.0-37.0); MCV 87.4 fL (80.0-100.0); RBC 2.24 mil/uL (4.50-6.00)
[2019-06-26 02:44] LABS: PLATELET COUNT 254 thou/uL (150-400)
[2019-06-26 02:45] LABS: HEMATOCRIT 19.5 % (42.0-52.0); HEMOGLOBIN 6.4 gm/dL (14.0-18.0)
[2019-06-26 02:57] LABS: CALCIUM 8.5 mg/dL (8.5-10.1); CREATININE 3.1 mg/dL (0.7-1.3); PHOSPHORUS 2.1 mg/dL (2.5-4.9); POTASSIUM 3.8 mmol/L (3.5-5.1)
[2019-06-26 03:18] LABS: ABSOLUTE NEUTROPHILS 4.9 thou/uL (1.4-8.2); ANISOCYTOSIS 1+; HYPOCHROMASIA 1+; MICROCYTES 1+; POLYCHROMASIA OCCASIONAL
--- NOTE | 2019-06-26 03:33 | NUR ---
ASSUMED PT'S CARE AT 191; PT. ON BED; RESTING WITH EYES CLOSED; SLEEP INTERRUPTED DURING SHIFT CHANGED; ALERT; AOX3; AROUND 2154; PT. ON BED; HAD AUDIBLE WHEEZING WITHOUT STHESTOCOPE; O2 SAT 87% ON 3L; O2 INCREASED TO 4L; PULVERIZER MILL OPERATOR NOTIFIED; ORDERS RECEIVED; AT AROUND 0030; CALLED TO PHYSICIAN WITH X-RAY RESULTS, HR ON THE 130s & PEG TUBE RESIDUAL (60 ML, GREEN COLOR MOSTLY); ORDERS RECEIVED; MONITORING HR; IV LASIX GIVEN; AT 0100 VS TAKEN; TEMPERATURE ELEVATED, RESPIRATIONS 26/MIN; 02 SAT 89%; O2 INCREASE TO 6L; PHYSICIAN NOTIFIED; ORDERS RECEIVED; DR. WALKER CONSULT; ORDERS RECEIVED; ORDER TO BE TRANSFER TO ICU; TIMBER SKIDDER NURSE, MANUFACTURING PROCESS ENGINEER & ICU CHARGED NOTIFIED; GARCES INSERTED; LABS WITHDRAW; PT. TRANSFER TO ICU AROUND 030; PT'S NOTIFIED AT 309;
[2019-06-26 07:47] LABS: APTT 35.5 Seconds (24.5-32.8); INR 1.3
[2019-06-26 12:08] LABS: BF NUCLEATED CELLS 11015; BF RBC 179130
[2019-06-26 12:10] LABS: CLARITY TURBID; COLOR RED; TOTAL VOLUME 60 mL
[2019-06-26 14:02] LABS: SOURCE CHEST FLUID
[2019-06-26 16:40] LABS: HEMATOCRIT 25.5 % (42.0-52.0)
[2019-06-26 16:43] LABS: HEMOGLOBIN 8.7 gm/dL (14.0-18.0)
--- NOTE | 2019-06-26 19:51 | NUR ---
PATIENT CONFUSED DURING THE BEGINNING OF THE SHIFT, MORE ALERT THIS EVENING. NORMAL SINUS RHYTHM ON CONCRETE JOURNEYMAN. ON 3L NASAL CANNULA, O2 SAT REMAINED ABOVE 90%. PATIENT NPO, PEG TUBE IN PLACE. OSTOMY INTACT. GARCES PATENT AND DRAINING ADEQUATE OUTPUT. WOUND CARE TO COCCYX COMPLETE. FAMILY AND PATIENT UPDATED ON THE PLAN OF CARE. NO SIGNS OF ACUTE DISTRESS NOTED AT THIS TIME. WILL CONTINUE TO MONITOR.
[2019-06-27] VITALS (37 sets, daily range): BP systolic 98–136; BP diastolic 47–66
--- NOTE | 2019-06-27 03:35 | NUR ---
ASSUMED CARE OF PATIENT AT 1900. VS AFEBRILE. ORIENTED TO PERSON, DOES NOT REALLY ANSWER ANY OTHER QUESTIONS. TURNED Q2, PROFO BOOTS IN PLACE. WOUND DRESSING C/D/I. NO OTHER S/S OF DISTRESS, WILL CONTINUE TO MONITOR.
[2019-06-27 05:51] LABS: INR 1.4; PROTIME 14.7 Seconds (9.3-11.4)
[2019-06-27 05:52] LABS: HEMATOCRIT 24.3 % (42.0-52.0); HEMOGLOBIN 8.2 gm/dL (14.0-18.0); MCHC 33.7 g/dL (28.0-37.0); RBC 2.82 mil/uL (4.50-6.00); RDW 17.3 % (10.5-14.5); WBC 6.9 thou/uL (4.0-11.0)
[2019-06-27 05:54] LABS: CALCIUM 8.6 mg/dL (8.5-10.1); CREATININE 3.2 mg/dL (0.7-1.3); PHOSPHORUS 2.8 mg/dL (2.5-4.9); POTASSIUM 3.4 mmol/L (3.5-5.1)
[2019-06-27 14:08] LABS: BODY FLUID ALBUMIN 1.6 g/dL (()); BODY FLUID AMYLASE 198 U/L (()); BODY FLUID GLUCOSE 13 mg/dL (()); BODY FLUID LDH 15894 IU/L (())
--- NOTE | 2019-06-27 14:37 | NUR ---
OT SERVICES PLACED ON HOLD Pt TRANSFERED FROM CCU TO ICU. WHEN APPROPRIATE, PLEASE PLACE REORDER/ RESUME ORDERS. THANK YOU
--- NOTE | 2019-06-27 16:44 | NUR ---
0700 ASSUMED PT CARE- PT ALERT AND ORIENTED X4. AFEBRILE. VITAL SIGNS STABLE. NO COMPLAINTS OF PAIN.
--- NOTE | 2019-06-27 16:45 | NUR ---
0953 PT HR 168, APPERARS TO BE IN SVT. BP 98/47, INSTRUCTED PT TO COUGH AND BARE DOWN- NO CHANGE IN HR OR RHYTHM. STAT EKG OBTAINED. DR ZHU PAGED FOR ORDERS. ORDERED TO GIVE NS 500ML BOLUS X1 AND METOPROLOL SUCCINATE 25MG X1-CONSULT CARDIOLOGY. 1000 PT HR SLOWED BACK DOWN WITHOUT BOLUS AND BETA CHUCKIE. BP REMAINED STABLE. ORDERS CARRIED OUT. CARDIOLOGY CONSULT CALLED.
[2019-06-28] VITALS (21 sets, daily range): BP systolic 117–147; BP diastolic 59–75
--- NOTE | 2019-06-28 03:36 | NUR ---
Pt was given a CHG bath, please note, he had a great deal of discomfort when turning for a linen change. Pt denies pain, and as long as he is still, this MAY be true, and may be why he declines turns. Pt may benefit from a fentanyl patch, will try to offer prn med. Will continue to monitor
--- NOTE | 2019-06-28 06:58 | NUR ---
PT TRANSFERRED FROM CCU TO ICU. DUE TO CHANGE IN MEDICAL STATUS, WILL PLACE PT ON HOLD FROM P.T. SERVICES. PLEASE RE-ORDER THERAPY WHEN INDICATED. THANK YOU.
[2019-06-28 08:36] LABS: ALBUMIN 3.8 g/dL (3.4-5.0); CALCIUM 8.7 mg/dL (8.5-10.1); CREATININE 3.3 mg/dL (0.7-1.3); PHOSPHORUS 1.7 mg/dL (2.5-4.9); POTASSIUM 3.1 mmol/L (3.5-5.1)
--- NOTE | 2019-06-28 09:12 | EKG ---
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1935 Requested By: Ced Montoya Order Number: [id number] MD: Moustapha Girard Measurements Intervals [place] Rate: 160 P: 0 [place]: 104 QRS: -49 QRSD: 101 T: 113 QT: 293 QTc: 478 Interpretive Statements Supraventricular tachycardia Left anterior fascicular block Abnormal R-wave progression, late transition Probable LVH with secondary repol abnrm Compared to ECG 06/21/2019 11:51:23 Electronically Signed On 06-28-2019 9:11:53 CDT by Moustapha Girard [email or web address] ��������������������������������������������� <ELECTRONICALLY SIGNED> ���������������������������������������� By: Moustapha Girard MD ��������������������������������������������� 06/28/1911 Moustapha Girard MD /EPI
--- NOTE | 2019-06-28 09:22 | HC ---
[facility] [place] [address] CONSULTATION Name: ROMMEL KHALIL Sahra Room #: 243-P ADM IN ..#: [id number] Admission: 06/16/19 ������������������ Attend Phys: Ced Montoya MD Discharge: ������������������ Date of : 34 Report #: [id number] THIS REPORT FOR: //name// CC: Ced Montoya DATE OF SERVICE: 06/24/2019 REASON FOR CONSULTATION: Elevated creatinine. REASON FOR PRESENTATION: Wounds and confusion. HISTORY OF PRESENT ILLNESS: This is a very well-known patient to me. He is an 84-year-old with history of chronic kidney disease, hypertension, diabetes mellitus, PE, history of retroperitoneal bleed. He had multiple hospitalizations at our facility here for a retroperitoneal bleed, acute kidney injury and was found to have numerous issues on his CT of the neck, chest, abdomen and pelvis, highly concerning for malignancy. At that time, a kidney biopsy was suggestive of a perinephric infiltration with carcinomatous process. The patient was then transferred to [facility] where he had a retropharyngeal mass biopsy that was consistent with lymphoma. He had been undergoing chemotherapy and stayed in the hospital for an extended period of time, his hospital stay at [facility] was complicated by C. diff. He was then hospitalized home and had some issues with debility and gluteal wounds. He presented for evaluation of those issues and was found to have staph epi in the blood. He had an MRI that was consistent with a subtle osteomyelitis. Imaging of his abdomen and pelvis was very concerning for retroperitoneal lymphadenopathy with perinephric involvement. Creatinine on presentation was 2.2 and had risen to around 2.7. I am being consulted to manage his volume status, his acute kidney injury. PAST MEDICAL HISTORY: Extensive and includes the followin. Hypertension. 2. Diabetes mellitus. 3. Status post diverting colostomy. 4. Sacral decubitus. 5. Retroperitoneal bleed. 6. 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 7. Bacteremia. 8. Anemia. 9. History of PE. 10. Post-retropharyngeal mass biopsy. 11. Lymphoma. REVIEW OF SYSTEMS: GENERAL: Significant for debility. CARDIOVASCULAR: No chest pain or palpitation. [facility] [address] [place] [address] CONSULTATION Name: ROMMEL KHALIL Room #: 243-P [facility] IN [facility]#: [id number] Admission: 06/16/19 ������������������ Attend Phys: Ced Montoya MD Discharge: ������������������ Date of : 34 Report #: [id number] PULMONARY: No cough or hemoptysis. GASTROINTESTINAL: No nausea or vomiting. GENITOURINARY: No frequency, no urgency. MUSCULOSKELETAL: Occasional back pain, buttock pain, lower extremity swelling. ALLERGIES: IODINE AND EGG. SOCIAL HISTORY: No drug or alcohol abuse. He lives with his . MEDICATIONS: 1. Doxazosin. 2. Crestor. 3. Levothyroxine. PHYSICAL EXAMINATION: GENERAL: He is alert, oriented, frail. VITAL SIGNS: Temperature 37.2, pulse rate 125, blood pressure 123/69. HEAD AND NECK: No jugular venous distention. CHEST: Decreased air entry bilaterally. CARDIOVASCULAR: No rub detected. ABDOMEN: Soft. LOWER EXTREMITIES: Extensive edema. SKIN: Extensive vitiligo rash. LABORATORY DATA: Reviewed. Hemoglobin is down to 7.0. Sodium is 137, BUN is 22, creatinine is 2.7. IMPRESSION AND PLAN: 1. Acute kidney injury. 2. Chronic kidney disease with a baseline creatinine of around 2.0. 3. Status post diversion colostomy. 4. Sacral osteomyelitis. 5. Lymphoma. 6. Bacteremia. 7. Very unfortunate and complicated lymphoma history with extensive CT changes, highly suggestive of progression of his lymphoma with involvement of retroperitoneal nodes. 8. Edema. 9. His edema is multifactorial and probably related to his hypoalbuminemia, retroperitoneal involvement. 10. We will attempt to diurese with albumin infusion. 11. His acute kidney injury is expected to worsen given his comorbid conditions including his bacteremia. 12. Monitor urine output. 13. Monitor electrolytes. 14. [place] [address] CONSULTATION Name: ROMMEL KHALIL Room #: [address] [place] [address] [place] [facility]#: [id number] Admission: 06/16/19 ������������������ Attend Phys: Ced Montoya MD Discharge: ������������������ Date of : 34 Report #: [id number] 15. Scope of care needs to be discussed with the patient and family given his extensive lymphoma history and the likelihood of progression of his disease. ��������������������������������������������� <ELECTRONICALLY SIGNED> ���������������������������������������� By: Chyna Morocho MD ��������������������������������������������� 06/28/19 0922 1421 2336 Chyna Morocho MD /nt
[2019-06-28 09:42] LABS: SOURCE CHEST
--- NOTE | 2019-06-28 16:01 | EKG ---
[address] [address] ELECTROCARDIOGRAM REPORT Name: SIMRANROMMEL Bocanegra Room #: 243-P ADM IN M.R.#: [id number] ������������������ Admission: 06/16/19 ������������������ Attend Phys: Ced Montoya MD Discharge: ������������������ Date of : 34 Report #: [id number] ����������������������������������������������������������������� [id number] THIS REPORT FOR: //name// [facility] Test Date: 2019-06-28 Test Time: 09:40:10 Pat Name: ROMMEL KHALIL Department: Room: 243 P Gender: M White Sidewall Tire Buffer: MIMI : 1935 Requested By: Judy Mortensen Order Number: [id number] MD: Moustapha Girard Measurements Intervals [place] Rate: 115 P: 39 ME: 129 QRS: -40 QRSD: 105 T: 86 QT: 351 QTc: 486 Interpretive Statements Sinus tachycardia Multiple premature complexes, vent & supraven Left anterior fascicular block Compared to ECG 06/27/2019 09:56:19 Supraventricular tachycardia no longer present Electronically Signed On 06-28-2019 16:01:00 CDT by Moustapha Girard [email or web address] ��������������������������������������������� <ELECTRONICALLY SIGNED> ���������������������������������������� By: Moustapha Girard MD ��������������������������������������������� 06/28/19 1601 Moustapha Girard MD /EPI
--- NOTE | 2019-06-28 18:06 | PATH ---
[facility] [address] [place] [address] PATHOLOGY RPT PROCEDURE Name: REINALDO KHALIL Sahra Room #: 243-P ADM IN M.R.#: [id number] ������������������ Admission: 06/16/19 ������������������ Date of : 34 Discharge: Report #: [id number] Path Case #: [id number] [facility] Accession Number: [id number] . 01 Material submitted: . PART A: sacrum - SACRAL BONE PART B: sacrum - SACRAL TISSUE . 01 Clinical history: . Sacral decubitus ulcer. . 02 Diagnosis: A. Sacral bone, debridement: - Fragments of soft tissue, skeletal muscle as well as bone with marked acute inflammation, consistent with debridement tissue. . B. Sacral tissue, debridement: - Skin and subcutaneous tissue with marked acute inflammation as well as ulceration. (IUV:scooby; 06/28/2019) QMS/06/28/2019 . 02 Electronically signed: . Hawa U Vadlamani, MD, Pathologist NPI- [id number] . 01 Gross description: . A. Received in formalin labeled "Reinaldo Khalil, sacral bone" are two irregular fragments of garcia-brown soft tissue and garcia-white bone measuring in aggregate 2.6 x 1.7 x 0.8 cm. Group Controller tissue is submitted in cassette A1 following decalcification. . B. Received in formalin labeled "Reinaldo Khalil, sacral tissue" are two irregular fragments of garcia-white skin and underlying soft tissue measuring in aggregate 5.7 x 4.2 x 2.0 cm. The larger portion of skin displays an ulcerated area measuring 2.8 x 0.8 cm. Upon sectioning the specimen, the cut surfaces are garcia-white and fibrotic. Group Controller tissue is submitted in cassette B1. ([facility]; 06/23/2019) SY/SY . 02 Pathologist provided ICD-10: M86.10 . 02 CPT . 987410, 140209, 937226 Specimen Comment: A courtesy copy of this report has been sent to Specimen Comment: [phone], [place] [address] PATHOLOGY RPT PROCEDURE Name: REINALDO KHALIL Room #: 243-P ADM IN M.R.#: [id number] ������������������ Admission: 06/16/19 ������������������ Date of : 34 Discharge: Report #: [id number] Path Case #: [id number] Specimen Comment: Report sent to and Performed at: [address], [place], [place] [id number] MD Charan Enriquez MD Phone: [phone] Performed at: [address] [id number] MD Hawa Lantigua MD Phone: [phone]
[2019-06-29] VITALS (44 sets, daily range): BP systolic 80–131; BP diastolic 41–68
[2019-06-29 05:33] LABS: CALCIUM 8.4 mg/dL (8.5-10.1); CREATININE 3.4 mg/dL (0.7-1.3); PHOSPHORUS 1.2 mg/dL (2.5-4.9); POTASSIUM 3.1 mmol/L (3.5-5.1)
--- NOTE | 2019-06-29 05:57 | NUR ---
END OF SHIFT NOTE. ASSUMED CARE FOR PATIENT AT APPROX 1900 ON 06/28, UPON ARRIVAL PATIENT WAS ASSESSED AND VITALS TAKEN PER ICU PROTOCOL. PATIENT WAS A&O X4, SATING > 94% ON 4L NC, OXYGEN NEEDS NOW TITRATED DOWN TO 2L NC. PATIENT DENIED PAIN ALL NIGHT, REFUSING ANY PAIN MEDICATIONS. PATIENT REFUSED TURNS AFTER APPROX 0000 BECAUSE HE DID NOT WANT TO BE WOKEN. TUBE FEEDS WERE STARTED AT 30ML/HR. NOW INCREASED TO 40ML/HR PATIENT HAS BEEN TOLERATING THEM WELL. HEEL BOOTS APPLIED BILATERALLY. NO SIGNIFICANT EVENTS OVERNIGHT. PATIENT REMAINS MED/SURG TELE STATUS.
[2019-06-29 10:37] LABS: BE(vivo) 0.7 mmol/L (-2 to +3); HCO3 24.2 mmol/L (22.0-26.0); PCO2 34.6 mmHg (35.0-45.0); PO2 71.6 mmHg (80.0-100.0); pH 7.462 (7.360-7.450); sO2 95.3 % (92.0-98.0)
--- NOTE | 2019-06-29 11:50 | NUR ---
Pt went into SVT with heart rate 170's approx 0953. Pt sleeping at the time of the rhythm change. BP stable. Call was placed to Dr Rodriguez's offict and spoke with his nurse, Lauren. Orders were received to replace electrolytes as per Dr España's orders and obtain an ABG. Replacment medications were started and ABG was obtained by RT. Call was placed back to Dr Rodriguez's office and Dr Rodriguez paged. At 1105 another call placed to Dr Hodge's office and physician paged. SVT continues. Copy of rhythm strip faxed to Dr Maldonado's office. Systolic BP dropped into 90's. Pt asymptomatic. At approximately 1145 Dr Rodriguez here to see patient. Orders initially given for [address] Rodriguez stayed at bedside while preparation made to give the Adenosine. Pt broke out of the SVT just as administration of Adenosine about to occur. Adenosine order cancelled by Dr Rodriguez. Converted back to sinus tachycardia wih rate 100's.
[2019-06-29 13:20] LABS: HEMATOCRIT 27.2 % (42.0-52.0); HEMOGLOBIN 8.8 gm/dL (14.0-18.0); MCH 28.6 pg (26.0-34.0); MCHC 32.2 g/dL (28.0-37.0); MCV 88.9 fL (80.0-100.0); RBC 3.06 mil/uL (4.50-6.00); RDW 18.2 % (10.5-14.5); WBC 6.4 thou/uL (4.0-11.0)
--- NOTE | 2019-06-29 16:20 | NUR ---
FAXED CLINICAL UPDATE TO [facility] SPOKE WITH LEONARDO IN ADM SHE RECEIVED UPDATE AND REQUESTED CURRENT LABS AND PROG. NOTES WHICH I FAXED AND RECEIVED CONFIRMATION. DCP TO FOLLOW.
--- NOTE | 2019-06-29 16:33 | NUR ---
FOLLOWING FOR DC PLANNING. CLINICAL INFO REVIEWED. PT TRANSFERRED TO ICU OVER HOLIDAY WEEKEND FOR RESP DISTRESS AND HAD LEFT PLEURAL EFFUSION AND THORACENTESIS WITH 1.3 LITERS REMOVED. PT AND SPOUSE DECIDED ON DNR OVER WEEKEND. PT IS ROUGHLY 6 DAYS POST SACRAL WOUND DEBRIDEMENT AND DIVERTING COLOSTOMY. WET TO DRY DRSGS TO SACRAL WOUND. DC PLAN HAS BEEN LTAC AND PT AND SPOUSE CHOSE [facility] PT SLEEPING WHEN SEEN AND CALLED SPOUSE MAIDA TO CONFIRM DC PLANS. SHE INDICATES PT AND SHE STILL WANT AGGRESSIVE CARE. COMMUNICATED WITH DR. MANSFIELD THIS AM WHO CONFIRMS DC PLAN TO LTAC WELL. SPOKE WITH Naymit SPRING CONTACT AND PROVIDED CLINICAL SUPPORT FOR LTAC AUTH PROCESS AND HEARD FROM FRANCISCO J AT [facility] IN AFTERNOON THAT [employer] GAVE AUTH FOR LTAC. INFORMED SPOUSE OF INSURANCE AUTH FOR [facility] AND PT COULD TRANSITION THERE EARLY TOMORROW. DR. DAWN CONSULTED R/T LYMPHOMA AND WHETHER ANY FURTHER TREATMENT CAN BE CONSIDERED. PER DR. DAWN' NOTE TODAY, CURRENTLY TOO DEBILITATED FOR CHEMO. RN UPDATED.
--- NOTE | 2019-06-29 19:15 | NUR ---
No further episodes of SVT. Blood pressure marginal. Wound care was completed and pictures were obtained of wounds. Tube feeding increased to goal rate of 50 ml/hr. and daughter by to visit. Daughter wanting copy of living will witnessed. Discussed with Oliva, case mamager. Notary unavailable this evening and pt has been receiving pain medications. will come by in the morning to address getting papers witnessed. Dr Morales was consulted today for evaluation of Lymphoma. Report given to RN assuming care.
[2019-06-30] VITALS (46 sets, daily range): BP systolic 88–127; BP diastolic 40–64
[2019-06-30 05:38] LABS: BE(vivo) -2.3 mmol/L (-2 to +3); HCO3 21.9 mmol/L (22.0-26.0); PCO2 35.1 mmHg (35.0-45.0); PO2 73.6 mmHg (80.0-100.0); pH 7.413 (7.360-7.450); sO2 95.1 % (92.0-98.0)
[2019-06-30 05:58] LABS: HEMATOCRIT 27.1 % (42.0-52.0); HEMOGLOBIN 8.8 gm/dL (14.0-18.0); MCH 28.9 pg (26.0-34.0); MCHC 32.4 g/dL (28.0-37.0); MCV 89.3 fL (80.0-100.0); PLATELET COUNT 201 thou/uL (150-400); RBC 3.04 mil/uL (4.50-6.00); RDW 17.9 % (10.5-14.5); WBC 5.5 thou/uL (4.0-11.0)
--- NOTE | 2019-06-30 06:00 | NUR ---
END OF SHIFT NOTE. ASSUMED CARE FOR PATIENT AT APPROX 1900 ON 06/29. UPON ARRIVAL PATIENT WAS ASSESSED AND VITALS TAKEN PER ICU PROTOCOL. PATIENT WAS ON 2L NC SATING > 93%. PARTIAL BED BATH WAS GIVEN. TURNS WERE OFFERED Q2H, MOST OF THE TIME THE PATIENT REFUSED. TUBE FEEDING REMAINS AT 50 ML/HR, PATIENT TOLERATING THE RATE WITH RESIDUALS < 50. PATIENT WAS AFEBRILE, WITH NO SIGNIFICANT EVENTS OVERNIGHT.
[2019-06-30 06:13] LABS: ALBUMIN 2.6 g/dL (3.4-5.0); CALCIUM 8.3 mg/dL (8.5-10.1); CREATININE 3.6 mg/dL (0.7-1.3); PHOSPHORUS 2.3 mg/dL (2.5-4.9); POTASSIUM 4.2 mmol/L (3.5-5.1); TOTAL BILIRUBIN 0.3 mg/dL (<0.1-1.0); TOTAL PROTEIN 7.2 g/dL (6.4-8.2)
[2019-06-30 08:55] LABS: ABSOLUTE NEUTROPHILS 3.6 thou/uL (1.4-8.2); PLATELET ESTIMATE NORMAL
--- NOTE | 2019-06-30 14:13 | NUR ---
FOLLOWING FOR DC PLANNING. CLINICAL INFO REVIEWED. CAME TO MEET SPOUSE AT 1340. PT SLEEPING. ZO AGUIRRE INDICATED SPOUSE HERE AROUND NOON AND TIMOHTY INFORMED HER DR. DAWN WOULD BE HERE AT 1 TO MEET WITH HER. SPOUSE STATED SHE COULD NOT STAY AND LEFT PRIOR TO DR. DAWN BEING HERE. DR. DAWN TO CALL SPOUSE TO DISCUSS CARE DECISIONS. WAITING FOR RETURN CALL FROM DR. MANSFIELD R/T WHETHER DISCHARGING TO [facility] TODAY ORLY MOLINA WAS OBTAINED FOR LTAC TRANSITION. VM LEFT FOR SPOUSE R/T POSSIBLE DC TODAY (I ALSO SPOKE WITH HER YESTERDAY ABOUT POSSIBLE DC TO [facility] TODAY). RN UPDATED. EBEN COREA UPDATED AND CM DIRECTOR UPDATED.
--- NOTE | 2019-06-30 19:23 | NUR ---
ASSUMED CARE THIS AM, AWAKE AND ORIENTED X 4. NO COMPLAINTS OF PAIN OR NAUSEA. SR/ST ON MONITOR. AFEBRILE. DRESSING CHANGE DONE AT 1100, BLEEDING WHEN DRESSING REMOVED BUT LOOKS APPROPRIATE. NEW W TO D DRESSING PLACED. MEDICATED WITH HYDROCODONE PRIOR TO TURNING. POSSIBLE TRANSFER TO [facility] BUT NOT UNTIL DR. WINKLER SPEAKS TO . TRIED TO MEET WITH HER THIS AFTERNOON BUT SHE COULD NOT BE AVAILABLE. HER PHONE NUMBER GIVEN TO DR. WINKLER' OFFICE.
[2019-07-01] VITALS (32 sets, daily range): BP systolic 98–131; BP diastolic 50–68
[2019-07-01 05:36] LABS: ALBUMIN 2.5 g/dL (3.4-5.0); CALCIUM 8.2 mg/dL (8.5-10.1); CREATININE 3.5 mg/dL (0.7-1.3); PHOSPHORUS 2.6 mg/dL (2.5-4.9); POTASSIUM 4.6 mmol/L (3.5-5.1)
--- NOTE | 2019-07-01 05:44 | NUR ---
END OF SHIFT NOTE. ASSUMED CARE FOR PATIENT AT APPROX 1900 ON 06/30. UPON ARRIVAL PATIENT WAS ASSESSED AND VITALS TAKEN PER ICU PROTCOL. PATIENT TUBE FEEDING RATE WAS INCREASED FROM 50 TO 60 ML/HR PER DR. MANSFIELD. AT 0000 PATIENTS GASTRIC RESIDUAL WAS 225, TUBE FEEDINGS WERE HELD FOR SEVERAL HOURS AND STARTED BACK UP. PATIENT DID NOT WISH TO BE TURNED EVERY 2 HOURS. PATIENT STILL A7O X4, AND REMAINS ON 2L NC. BED ALARM ON. NO SIGNIFICANT EVENTS OVERNIGHT.
[2019-07-01 05:51] LABS: HEMATOCRIT 27.2 % (42.0-52.0); HEMOGLOBIN 8.9 gm/dL (14.0-18.0)
[2019-07-01 08:47] LABS: BF MACROPHAGE 85; BF NEUTROPHILS 11
--- NOTE | 2019-07-01 09:07 | PATH ---
[facility] [address] [place] [address] PATHOLOGY RPT PROCEDURE Name: ROMMEL KHALIL Room #: 243-P ADM IN M.R.#: [id number] ������������������ Admission: 06/16/19 ������������������ Date of : 34 Discharge: Report #: [id number] Path Case #: [id number] Note LCA Accession Number: [id number] TESTS RESULT FLAG UNITS REF RANGE LAB Clinician Provided Cytology Information No. of containers..01 Other (Miscellaneous) Source: PLEURAL DIAGNOSIS: 02 PLEURAL NEGATIVE FOR MALIGNANT EPITHELIAL CELLS. MESOTHELIAL CELLS ARE PRESENT. THIS INTERPRETATION INCLUDES EVALUATION OF A CELL BLOCK. ABUNDANT PLASMA CELLS, APOPTOTIC DEBRIS, MACROPHAGES ALONG WITH INFLAMMATORY CELLS, HISTORY OF PLASMA CELL DYSCRASIA. Pathologist ICD10: 02 J90 Signed out by: 02 Hawa Lantigua MD, Pathologist NPI- [id number] Performed by: Nelsy Hernandez, Wood Machine Carver ([facility]) Gross description: 01 10 ML, RED, CLOUDY /LCS FLAG LEGEND: L-Low Normal,H-High Normal,LL-Alert Low,HH-Alert High <-Panic Low,>-Panic High,A-Abnormal,AA-Critical Abnormal Performed at: [address] [place] [address] Charan Enriquez MD, [address] [address] Hawa Lantigua MD, Specimen Comment: A courtesy copy of this report has been sent to Specimen Comment: [phone]. Specimen Comment: REPORT FAXED TO DR ZHU Specimen Comment: A duplicate report has been generated due to demographic updates. Performed at: [address], [place], [place] [id number] [address] [address] PATHOLOGY RPT PROCEDURE Name: ROMMEL KHALIL Room #: 243-P ADM IN M.R.#: [id number] ������������������ Admission: 06/16/19 ������������������ Date of : 34 Discharge: Report #: [id number] Path Case #: [id number] MD Charan Enriquez MD Phone: [phone]
--- NOTE | 2019-07-01 15:54 | NUR ---
[facility] NURSE CAME TO ASSESS PATIENT FOR IN-PATIENT CARE. SPOKE TO PATIENT ONE ON ONE AND SPOKE TO THE ON THE PHONE AT LENGTH. WANTS TO TALK TO CHILDREN AND PATIENT BEFORE MAKING FINAL DECISION.
--- NOTE | 2019-07-01 16:30 | NUR ---
PT IS DNR. PREVIOUS PLANS FOR LTAC AT [facility] ON HOLD. DR. MANSFIELD AND LÓPEZ SPOKE WITH SPOUSE BY PHONE AND ARE RECOMMNEDING HOSPICE CARE FOR PT. DR. MANSFIELD INDICATED SPOUSE WANTS REFERRAL TO HOSPICE FOR HOUSE NOMI. SPOKE WITH MRS KHALIL BY PHONE AROUND NOON AND SHE CONFIRMS THIS PLAN. REFERRAL FAXED TO HOSPICE AND ZO MASON HERE TO EVAL AROUND 1330. [facility] CAN ACCEPT PT BUT WITHOUT BED TODAY. PT STATED HE IS UNSURE OF WHAT HE WANTS AND TO SPEAK WITH HIS SPOUSE. SPOUSE INDICATES SHE WILL BE AT HOSPITAL TOMORROW TO SPEAK WITH PT AND MAKE FINAL DECISION. OUTSIDE HOSPITAL DNR FORM ON CHART AND NEEDS SIGNATURE FROM EITHER PT OR SPOUSE AND DR. MANSFIELD. DR. MANSFIELD UPDATED TO SITUATION AND DNR FORM. AMBULANCE FORM COMPLETED IN CASE AND ON CHART. LORI DC UPDATED TO SITUATION AND IS AVAILABLE PHARMACEUTICAL SALES SPECIALIST SAT/SUN TO ASSIST WITH DC IF HOSPICE HAS A BED AND PT/SPOUSE AGREE.
--- NOTE | 2019-07-01 17:04 | NUR ---
ambulance form filled out and copy on chart. notified bedside nurse, showed her was on outside of chart. will need to be faxed at time of dc, to hospice house.
--- NOTE | 2019-07-02 00:24 | NUR ---
ASSUMED CARE OF PT. AT 1900. VSS. DENIES PAIN AT THIS TIME. REFUSEING TO TURN. ST TO NSR ON MONITOR. TEMP MAX OF 99.3. PT. IS ALERT AND ORIENTED X4, PLEASANT AND CALM. TOLERATING TUBE FEEDING. SEE WOUND DOCUMENTATION. PT. TRANSFERRED TO CCU ROOM 214. REPORT GIVEN TO JUAN PATHAK. ALL BELONGINGS WITH PT.
[2019-07-02 00:27] VITALS: BP 137/58
[2019-07-02 08:00] VITALS: BP 117/47
--- NOTE | 2019-07-02 08:56 | NUR ---
ASSUME CARE 2330 ROM ICU STAFF. PT STABLE ON ARIVAL. A/O X 4/ DROWSY BUT EASILY AROUSABLE. UNCOOPERATIVE AT TIMES WITH CARE. REFUSES TO BE TURNED BUT TAKES MEDS OK. SACRAL DRESSING CDI. POOR URINE OUTPUT NOTED FROM GARCES. COLOSTOMY PINK WITH LIQUID GREENISH STOOL NOTED. ASSESSMENT CHARTED. PROGRESSING SLOWLY TO PLAN OF CARE. WILL CONTINUE TO MONITOR AND FOLLOW WIHT POC.
[2019-07-02 12:00] VITALS: BP 113/49
[2019-07-02 15:43] VITALS: BP 116/44
[2019-07-02 16:00] VITALS: BP 116/44
--- NOTE | 2019-07-02 18:11 | NUR ---
VSS NSR TO ST 90-104, LUNGS CLEAR AND DIMINISHED,O2 SAT 2L IS 96%. PT BACK ON TF THRU G TUBE TWOCAL HN AT 600CC/HR, TOLERATING TUBE FEEDINGS. WATER FLUSHES 150CC EVERY 6 HOURS. PT STARTED ON REGULAR DIET FOR SUPPER TONIGHT. ATE 25% FED BY . COLOSTOMY INTACT AND DRAINING 50 CC LIQUID BROWN STOOL. DRESSING CHANGES TO COCCYX TODAY, SEE WOUND CARE DOCUMENTS. WILL CONTINUE TO MONITER AND CARE FOR PT PER PLANOF CARE
[2019-07-02 21:02] VITALS: BP 118/42
[2019-07-03 04:45] VITALS: BP 107/43; BP 116/53
--- NOTE | 2019-07-03 05:45 | NUR ---
ASSUME CARE 1900. PT/VITALS STABLE. COMPLAINS OF CONSISTENT GENERALIZED ACHE. ON CONTINUOIUS TUBE FEEDBG THROUGH PEG DUE TO POOR APPETITE. A/O X 4. PROGRESSING SLOWLY WITH POC. ASSESSMENT CHARTED. REFUSES TURN EVEN AFTER EDUCATION ON THE IMPORTANCE OF TURNING FOR WOUND HEALING. PLAN IS TO CONTINUE WITH IV AD ORAL ABX/ CONTINUE TO MONITOR INFECTION AND NURITIONAL LEVEL. WILL CONTINUE TO FOLLOW WIHT POC.
[2019-07-03 06:41] LABS: HEMATOCRIT 26.4 % (42.0-52.0); HEMOGLOBIN 8.7 gm/dL (14.0-18.0); MCH 29.4 pg (26.0-34.0); MCHC 32.8 g/dL (28.0-37.0); MCV 89.7 fL (80.0-100.0); RBC 2.95 mil/uL (4.50-6.00); RDW 17.4 % (10.5-14.5); WBC 5.4 thou/uL (4.0-11.0)
[2019-07-03 06:51] LABS: ALBUMIN 2.3 g/dL (3.4-5.0); CALCIUM 8.8 mg/dL (8.5-10.1); CREATININE 3.7 mg/dL (0.7-1.3); PHOSPHORUS 2.1 mg/dL (2.5-4.9); POTASSIUM 5.7 mmol/L (3.5-5.1); TOTAL BILIRUBIN 0.3 mg/dL (<0.1-1.0); TOTAL PROTEIN 7.5 g/dL (6.4-8.2)
[2019-07-03 08:39] VITALS: BP 91/61
[2019-07-03 11:28] VITALS: BP 128/52
[2019-07-03 11:30] VITALS: BP 128/52
--- NOTE | 2019-07-03 14:22 | NUR ---
VSS REMAINS NSR, LUNGS DIMINISHED AND CLEAR, O2 SAT 2L I2 91-97%. EATING 25% MEALS TODAY. TF INFUSING AT 60CC/HR WITHOUT DIFFICULTY WITH H2O BOLUSUS. COLOSTOMY WITH BROWN LIQUID DRAINAGE. SEE WOUNF DOCUMENTATION FOR DRESSING CHANGES. WILL CONTINUE TO MONITER AND CARE FOR PT PER PLANOF CARE
[2019-07-03 16:19] VITALS: BP 111/44
[2019-07-03 20:04] VITALS: BP 125/54
[2019-07-04 03:39] VITALS: BP 115/54
[2019-07-04 05:42] LABS: CALCIUM 8.9 mg/dL (8.5-10.1); CREATININE 3.7 mg/dL (0.7-1.3)
[2019-07-04 05:47] LABS: POTASSIUM 6.4 mmol/L (3.5-5.1)
--- NOTE | 2019-07-04 06:18 | NUR ---
PAIN WELL CONTROLLED WITH HYDROCODONE.ALERT WITH FORGETFULNESS.REPOSITIONED.TWOCAL HN IS INFUSING AT 60 ML/HR WITH WATER FLUSHES.RESIDUAL IS LESS THAN 10 CC.MONITOR SHOWS SINUS TACHY.GARCES TO DD.COLOSTOMY INTACT.CRITICAL POTASSIUM OF 6.4 THIS MORNING AND WAS CALLED AND STILL WAITING FOR CALL BACK.WILL MONITOR AND CONTINUE POC.
--- NOTE | 2019-07-04 08:22 | NUR ---
Followup: EMR reviewed and noting poor prognosis. Awaiting further family decision. Will defer further nutrition reassessment unless consulted.
[2019-07-04 08:37] VITALS: BP 124/54
[2019-07-04 11:51] VITALS: BP 142/54
--- NOTE | 2019-07-04 14:28 | NUR ---
FOLLOWING FOR DC PLANNING. MET WITH TALA HOGAN AND DR. MANSFIELD PRIOR TO DR. MANSFIELD MEETING WITH PT AND SPOUSE IN ROOM AT NOON. OUTSIDE HOSPITAL DNR FORM SIGNED BY PT'S SPOUSE BUT PER DR. MANSFIELD, AT PRESENT, PT AND SPOUSE ARE NOT ABLE TO MAKE DECISION ABOUT HOSPICE CARE. PT WAS ACCEPTED BY HOSPICE 07/01/[address] MANSFIELD CONSULTED DR. MORILLO AND PROVIDED DR. MORILLO WITH UPDATED DETAILS OF HOSPITALIZATION AND DC PLANNING. DR. MORILLO WILL SEE PT TODAY.
--- NOTE | 2019-07-04 15:13 | NUR ---
REPORT GIVEN TO YANNA ON 4W PT GOING TO RM 460 TRANSPORTED VIA BED TO 4W
--- NOTE | 2019-07-04 16:06 | PATH ---
[facility] [address] [place] [address] PATHOLOGY RPT PROCEDURE Name: ROMMEL KHALIL Room #: 214-P ADM IN M.R.#: [id number] ������������������ Admission: 06/16/19 ������������������ Date of : 34 Discharge: Report #: [id number] Path Case #: [id number] Note LCA Accession Number: [id number] TESTS RESULT FLAG UNITS REF RANGE LAB Clinician Provided Cytology Information No. of containers..01 Other (Miscellaneous) Source: 01 PLEURAL FLUID DIAGNOSIS: 02 PLEURAL FLUID INCONCLUSIVE. THIS INTERPRETATION INCLUDES EVALUATION OF A CELL BLOCK. Comment: The prior specimen ([id number]) showed numerous apoptotic bodies along with plasma cells. Numerous plasma cells are present within the current fluid, therefore specimen is sent for flowcytometric analysis. An addendum will be issued subsequent to receivign results of the same. 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 Pathologist ICD10: 02 D64.9 Addendum: 02 Special studies report received from [facility], [address] [place] [address], [address], [place], [address], on case [id number], labeled with their number [id number], dated 07/02/2019. . Flow Cytometry: Hematologic Neoplasia Assessment . Clinical History Back Pain, confusion, sacral wound . 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 Specimen Fluid chest . Viability 3% (7AAD exclusion) . Interpretation Fluid chest: - Possible minute monotypic population of plasma cells/ plasmacytoid B-cells (0.02%) detected in a specimen with markedly reduced viability (viability is 3%, see comment). . Comments The base panel shows only rare T-cells, however, given the patient's history of a plasma cell/ plasmacytoid B-cells population, a plasma cell [address] [address] PATHOLOGY RPT PROCEDURE Name: ROMMEL KHALIL Sahra Room #: 214-P ADM IN M.R.#: [id number] ������������������ Admission: 06/16/19 ������������������ Date of : 34 Discharge: Report #: [id number] Path Case #: [id number] add on was added and showed very rare events that are positive for CD19, CD138, CD38 (bright) and kappa with indeterminate CD56. These findings are highly suspicious for involvement by the patient's known neoplastic process. However, given the markedly decreased specimen viability and rarity of events, these findings should be interpreted with extreme caution. Plasma cells are typically underrepresented by flow cytometry. Correlation with all available clinical, laboratory, and morphologic data is necessary. . Populations Analyzed Lymphocytes: 0.12% B-cells: 0.0% T-cells: no significant abnormalities of the markers tested CD4:CD8: 0.5 Plasma Cells/ 0.02% CD45-/+, CD19+, CD38+ (bright), CD138+, Plasmacytoid B-cells: CD56-/+, cIg kappa+ Remaining CD45 99% No significant reactivity with the markers Negative Events/ tested (may represent non-hematolymphoid Debris: cells, degenerated cells, debris, unlysed red blood cells, etc.) . Morphologic Evaluation A slide was reviewed for quality engineer medical device purposes only. . Specimen Description Cell Yield: 2.36x10 and 6 Due to a low cellular viability, an average of 280 viable events were acquired per tube. Flow cytometry data derived from an acquisition with less than 10,000 viable events needs to be interpreted within the context of all clinical, laboratory, and morphologic data available. . Pertinent Prior Test Results Received Date Test Type Specimen Type Result 02/18/2019 Virtual Studies - Tissue Result Number: Level 1 [id number] 02/16/2019 Flow Cytometry Tissue Result Number: [id number] Tissue, Neck, Bilateral Mass: - Subset of B-cells (1% of total cells) show preponderance of kappa light chain and increased cell size. See comments. - Addendum: A population of monotypic plasma cells/plasmacytoid B-cells is identified (10-15% of [facility] [address] [place] [address] PATHOLOGY RPT PROCEDURE Name: SIMRANROMMEL Bocanegra Room #: 214-P ADM IN M.R.#: [id number] ������������������ Admission: 06/16/19 ������������������ Date of : 34 Discharge: Report #: [id number] Path Case #: [id number] total cells). See comments. 02/16/2019 FISH - Tissue Result Number: TargetGene Panel [id number] Result: No assay specific abnormalities detected by BCL2 and MYC FISH probes. The BCL6 and MALT1 FISH probes failed to yield results. See interpretation. 02/16/2019 B/T cell gene Tissue Result Number: [id number] Clonal immunoglobulin heavy chain (IGH) and kappa light chain (IGK) gene rearrangements were detected 02/16/2019 MYD88 Mutation Other Result Number: Detection by PCR [id number] Analysis Negative for MYD88 L265P mutation 01/13/2019 Flow Cytometry Bone Marrow Result Number: [id number] See Report 01/13/2019 Cytogenetics Bone Marrow Result Number: [id number] Result: Normal Male Karyotype 46,XY(20) . . . Reagent(s) Used CD2, CD3, CD4, CD5, CD7, CD8, CD10, CD11b, CD19, CD20, CD23, CD30, CD38, CD43, CD45, CD56, CD57, FMC-7, HLA-DR, kappa, lambda, CD138, CytoKappa, CytoLambda . . at [employer], [employer]. Daniele Mcdaniel MD Pathologist . . Intended Use Flow cytometry is optimally used to immunophenotypically characterize abnormal populations when they are detected. Negative flow cytometry results do not exclude lymphoma or neoplasia. Possible false negative flow [address] [address] PATHOLOGY RPT PROCEDURE Name: SIMRANROMMEL Bocanegra Room #: 214-P ADM IN M.R.#: [id number] ������������������ Admission: 06/16/19 ������������������ Date of : 34 Discharge: Report #: [id number] Path Case #: [id number] cytometry results may occur in, but are not limited to, the following: neoplastic cells in Hodgkin lymphoma are not typically adequately represented by routine clinical flow cytometry; neoplastic cells may be lost or inadequately represented due to degeneration, sample processing, sampling artifact, or patchy involvement; plasma cells are typically underrepresented by flow cytometry; immature cells/blasts may be underrepresented due to hemodilution; myeloproliferative disorders and low grade myelodysplasia may not have immunophenotypic abnormalities or increased blasts. Correlation with all available clinical, laboratory, and morphologic data is always necessary to assess for the possibility of false negative flow cytometry results and to establish a diagnosis. Each marker in this analysis was used to assess for potential antigenic abnormalities or to evaluate detected abnormalities. . Disclaimer(s) This test was performed at [employer] at [address], [address] - [employer]: Iker Smiley MD. [employer] is a business unit of [employer] a wholly-owned subsidiary of [employer]. . Any image or images that accompany this report are commercial pest control representative images only and should not be used to render a diagnosis. . This test was developed and its performance characteristics determined by [facility]. It has not been cleared or approved by the Food and Drug Administration (FDA). The FDA has determined that such clearance or approval is not necessary. . For inquiries, the physician may contact Lab: [phone] . A complete copy of the report is on file. . Professional services performed by [employer] at [address], [place] [address]. Technical services performed by [employer] at [address], [place] [address]. . (IUV:amj 07/04/2019) . AZJ/07/04/2019 Addendum Electronically Signed by Hawa Lantigua MD, Pathologist Signed out by: 02 Hawa Lantigua MD, Pathologist NPI- [id number] Performed by: Shira Hernandez, Fire Boss (AS[employer]) [address] [address] PATHOLOGY RPT PROCEDURE Name: ROMMEL KHALIL Room #: 214-P [facility] IN .R.#: [id number] ������������������ Admission: 06/16/19 ������������������ Date of : 34 Discharge: Report #: [id number] Path Case #: [id number] Gross description: 01 4ML, RED, CLOUDY /LCS FLAG LEGEND: L-Low Normal,H-High Normal,LL-Alert Low,HH-Alert High <-Panic Low,>-Panic High,A-Abnormal,AA-Critical Abnormal Performed at: 01 [facility] [address] [place] [address] Charan Enriquez MD, 02 [facility] [address] [address] Hawa Lantigua MD, Specimen Comment: A courtesy copy of this report has been sent to Specimen Comment: [phone], . Specimen Comment: Report sent to / DR MANSFIELD Specimen Comment: A duplicate report has been generated due to demographic updates. Performed at: [address] [facility] [address] [place], [place] [id number] MD Charan Enriquez MD Phone: [phone]
--- NOTE | 2019-07-04 16:28 | NUR ---
PT ADMITTED TO ROOM 460. CONTACT CART ORDERED.
--- NOTE | 2019-07-04 17:27 | NUR ---
TUBE FEEDING HELD BY PREVIOUS RN. WILL CONTINUE TO HOLD PT'S ABDOMEN REMAINS DISTENDED.
--- NOTE | 2019-07-04 18:53 | NUR ---
DR. REEVESRP INSTRUCT NIGHT RN TO PUT G-TUBE TO INDEPENDENT DRAINAGE AND KEEP PT COMFORTABLE WITH MORPHINE.
[2019-07-04 19:47] VITALS: BP 128/52
--- NOTE | 2019-07-05 04:08 | NUR ---
ASSUMED CARE OF PATIENT AT 1900. VSS, AFEBRILE. ORDERS TO MAKE PATIENT NPO OBTAINED. PEG TUBE TO DEPENDENT DRAINGE PER DR MANSFIELD. LATER OBTAINED ORDERS TO PUT TO LIS. NO OUTPUT. BLOOD SUGAR CHECKED AT MIDNIGHT PER PROTOCOL, TREATED PER PROTCOL. RESTING COMFORTABLY AT THIS TIME. ANTICIPATING DC TO HOSPICE HOUSE TODAY.
[2019-07-05 07:39] VITALS: BP 123/54
[2019-07-05] MEDS ORDERED: LOPRESSOR25 PER TUBE (08:02)
[2019-07-05] MEDS ORDERED: ARTIFICIAL TEA1 EACH OPHTHALMIC (08:02)
[2019-07-05] MEDS ORDERED: ACETAMINOPHEN325 M1 PO (08:02)
[2019-07-05] MEDS ORDERED: FUROSEMIDE10 MG/1 ML IV (08:02)
[2019-07-05] MEDS ORDERED: HYDROCODON-ACE1 EAC7 PO (08:02)
[2019-07-05] MEDS ORDERED: IPRAT-ALBUT 0.5-3 ML INH (08:02)
[2019-07-05] MEDS ORDERED: ONDANSETRON HCL4 M1 IV PUSH (08:02)
[2019-07-05] MEDS ORDERED: MORPHINE SU4 MG/1 M1 IV PUSH (08:02)
[2019-07-05] MEDS ORDERED: DAKIN'S473 ML IRRIG (08:02)
[2019-07-05] MEDS ORDERED: FENTANYL 050 MCG/1 M IV PUSH (08:02)
--- NOTE | 2019-07-05 13:39 | NUR ---
Received awake on bed. On nothing per orem- pt informed and aware. Pt A+O x 1-2. On O2 at 3lpm via nasal cannula, skin checked behind his ears- intact. With PEG tube to suction machine- no output noted. With Colostomy bag in place- stoma pink and moist, output measured and recorded accordingly. With SL at R subclavian vein- intact and flushing well. With arciniega in place- draining well, output measured and recorded accordingly. 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 On blood sugar monitoring- taken and recorded accordingly. Pt with CBG of 65 pre breakfast- PRN D50 1/2 vial given as prescribed, rechecked CBG after intervention CB. With swelling at scrotum- Dr Montoya aware, furosemide IV given as prescribed. Dr Montoya informed by hypoglycemic episode and intervention given this AM. Discharge orders put in by Dr Montoya- discharge instructions, prescription and chart copy made and sent to [facility]- CM informed; transport set up at 11am, to be picked up by [facility]. Pt with pressure wound at sacrum- dressing changed and photo taken, With ?DTI at L heel- wound care given and photo taken. Pt fetched by [facility] at 11am, personal belongings taken with patient, report given to [facility] and Staff Inman from [facility]. Verified with staff henny if pt to transfer with SC IV, arciniega, PEG and colostomy- as per Staff Henny, not to remove any of it, pt to come with them, also informed re: wound care.
--- NOTE | 2019-07-06 17:44 | NUR ---
DR MORILLO REPORTS HE MET WITH PATIENT AND SP WITH . HE REPORTS HE DOES NOT FEEL PATIENT CAN MAKE DECISIONS. HE SP WITH AND SHE WAS AGREEABLE TO TRANSITION TO HOSPICE HOUSE. SP WITH INTAKE AT HOSPICE WHO REPORTS THEY EVALED THURSDAY THEY DO NOT NEED TO [facility]. THEY HAVE BED AVAIL. [facility] ARRANGED FOR 1100. CHART COPIED. ORDERS FAXED TO FACILITY, NOTIFIED PAITENT AND . TO MEET PATIENT AT FACILITY.
--- NOTE | 2019-07-12 16:41 | HC ---
[facility] [place] [address] CONSULTATION Name: ROMMEL KHALIL Room #: 460-P [facility] M.R.#: [id number] Admission: 06/16/19 ������������������ Attend Phys: Ced Montoya MD Discharge: 07/05/19 ������������������ Date of : 33 Report #: [id number] THIS REPORT FOR: //name// CC: Ced Montoya MD PALLIATIVE CARE CONSULTATION REQUESTING PHYSICIAN: Dr. Montoya. CHIEF COMPLAINT: Non-Hodgkin's lymphoma with progression. HISTORY OF PRESENT ILLNESS: The patient initially presented to [facility] with what appeared to be a worsening sacral stage 4 wound, sacral osteomyelitis. Subsequently, he has had a diverting colostomy placed secondary to this; however, had been found to have progression of his non-Hodgkin's lymphoma including involvement of the chest, abdomen and pelvis and retroperitoneal bleed as well. He has subsequently developed acute renal failure, but is not a good candidate for dialysis. There has been significant discussion within the family and with the patient about what direction to take; however, the patient has been reluctant to make a decision with regards to this. They did make a decision to go do not resuscitate and outside the hospital do not resuscitate form has been signed. I have spoken with the patient today; however, he is not able to recall previous discussions and certainly not able to make an informed decision at this time as he cannot express to me what the previous discussions entailed. I did discuss with him what hospice was and what the facility that we were considering was with regards to his further care. However, again he was not able to retain this information and make an informed decision. The patient did report some mild discomfort in his abdomen, but did not desire a change in pain medication at this time. PAST MEDICAL HISTORY: Non-Hodgkin's lymphoma, retroperitoneal bleed, history of pulmonary embolism, hypertension, type 2 diabetes, atrial fibrillation, sacral wound with osteomyelitis. SOCIAL HISTORY: Spouse, Kelsy Khalil, also has a daughter and a son. Currently, DNR status. FAMILY HISTORY: Noncontributory. PAST SURGICAL HISTORY: Again, noncontributory at this time aside from the fact that the patient just recently had diverting colostomy and has had lymphoma related biopsies. MEDICATIONS: Reviewed and appropriate at this time. REVIEW OF SYSTEMS: Difficult to obtain fully, but did report abdomen with some [address] [address] CONSULTATION Name: ROMMEL KHALIL Room #: 460-P [facility] .R.#: [id number] Admission: 06/16/19 ������������������ Attend Phys: Ced Montoya MD Discharge: 07/05/19 ������������������ Date of : 33 Report #: [id number] soreness. He does have some sacral soreness as well. Denied chest pain, does have some dyspnea. He is wearing oxygen at this time via nasal cannula. PHYSICAL EXAMINATION: VITAL SIGNS: Temperature 37.3, pulse 114, respirations 24, blood pressure 142/54, 94% on nasal cannula. GENERAL: The patient appears to be initially alert; however, frequently sleeping during my exam. Certainly, his attention level is altered. He is in no acute distress currently. HEENT: No scleral icterus. No conjunctival injection. RESPIRATORY: He has slight tachypnea, no respiratory distress or accessory muscle use currently. ABDOMEN: Distention noted and mild tenderness diffusely to light palpation. NEUROLOGIC: Again, the patient has altered attention level, although grossly neurologically intact. LABORATORY DATA: These include potassium 6.4, creatinine 3.7, hemoglobin 8.7. ASSESSMENT AND PLAN: 1. Non-Hodgkin's lymphoma. At this time, I have reviewed Oncology notes as well as notes from Nephrology and primary care team. The patient would benefit most from palliative care given these conjunction of diagnoses and the poor prognostic outcomes. Did discuss this extensively with the patient; however, he is not of capacity for decision making at this time. I did discuss this with spouse, Kelsy Khalil, who discussed it with family and they are wishing to pursue hospice house admission. I did discuss this with rn social services team who is understanding of this. Spent approximately 25 minutes in discussion of advanced care planning. 2. Sacral osteomyelitis. Again, this has significant bearing on his overall care currently, significant wound with difficulty healing at this time. 3. Delirium. Again, significantly influential to his current state and his decision making. Family has made decision to pursue hospice care at this time. 4. Acute renal failure, again without dialysis. Had discussed with family that the patient's prognosis is certainly poor and he is not a good candidate for dialysis. Thank you very much for this consultation. Please contact me for any further questions regarding this patient. ��������������������������������������������� <ELECTRONICALLY SIGNED> ���������������������������������������� By: Shawn Rodriguez DO ��������������������������������������������� 07/12/19 [id number] Shawn Rodriguez DO /nt
== END 2019-07-05 11:32 | disposition hospice, inpatient (51) | DRG 853 ==
LOC: ER 13:59 → 2N 18:02 → EROBS 18:02 → ICU 18:02 → 4E 18:02 → 2N 06-21 12:01 → ICU 06-26 03:02 → 2N 07-01 23:44 → 4W 07-04 16:26
PROVIDERS: Anesthesiology; Emergency Medicine; Hospitalist; Internal Medicine; Pediatrics; Physician Assistant; ADMIT Internal Medicine
DX: A41.2 Sepsis due to unspecified staphylococcus (principal); L89.154 Pressure ulcer of sacral region, stage 4; E43 Unspecified severe protein-calorie malnutrition; K66.1 Hemoperitoneum; J96.21 Acute and chronic respiratory failure with hypoxia; N17.0 Acute kidney failure with tubular necrosis; J69.0 Pneumonitis due to inhalation of food and vomit; M46.28 Osteomyelitis of vertebra, sacral and sacrococcygeal region; N39.0 Urinary tract infection, site not specified; C85.90 Non-Hodgkin lymphoma, unspecified, unspecified site; J90 Pleural effusion, not elsewhere classified; R18.8 Other ascites; G93.40 Encephalopathy, unspecified; I47.1 Supraventricular tachycardia; K56.7 Ileus, unspecified; I12.9 Hypertensive chronic kidney disease with stage 1 through stage 4 chronic kidney disease, or unspecified chronic kidney disease; N18.9 Chronic kidney disease, unspecified; E03.9 Hypothyroidism, unspecified; E78.5 Hyperlipidemia, unspecified; E78.00 Pure hypercholesterolemia, unspecified; M10.9 Gout, unspecified; D64.9 Anemia, unspecified; E86.0 Dehydration; K21.9 Gastro-esophageal reflux disease without esophagitis; G47.33 Obstructive sleep apnea (adult) (pediatric); B96.89 Other specified bacterial agents as the cause of diseases classified elsewhere; L89.629 Pressure ulcer of left heel, unspecified stage; E11.22 Type 2 diabetes mellitus with diabetic chronic kidney disease; Z66 Do not resuscitate; R41.0 Disorientation, unspecified; E11.69 Type 2 diabetes mellitus with other specified complication; B96.20 Unspecified Escherichia coli [E. coli] as the cause of diseases classified elsewhere; B95.8 Unspecified staphylococcus as the cause of diseases classified elsewhere; D50.9 Iron deficiency anemia, unspecified; N28.1 Cyst of kidney, acquired; R59.9 Enlarged lymph nodes, unspecified; R59.1 Generalized enlarged lymph nodes; K59.00 Constipation, unspecified; I48.91 Unspecified atrial fibrillation; I36.1 Nonrheumatic tricuspid (valve) insufficiency; E87.5 Hyperkalemia; I49.9 Cardiac arrhythmia, unspecified; E87.6 Hypokalemia; Z51.5 Encounter for palliative care; Z86.711 Personal history of pulmonary embolism; Z79.899 Other long term (current) drug therapy; Z91.041 Radiographic dye allergy status; Z91.012 Allergy to eggs; Z85.850 Personal history of malignant neoplasm of thyroid; Z87.891 Personal history of nicotine dependence; Z92.21 Personal history of antineoplastic chemotherapy; Z87.442 Personal history of urinary calculi; Z68.26 Body mass index [BMI] 26.0-26.9, adult
CPT/HCPCS: 10045; 10078; 10081; 10084; 10194; 10203; 50010; 50101; 50386; 50403; 56524; 57119; 57120; 57192; 62110; 62900; 70005; 85076